=== PATIENT | female | born 1935 | race Caucasian/White ===

== ENCOUNTER 2018-07-20 14:40 | Observation (INO) ==
[2018-07-20] MEDS ORDERED: TUSSIONEX PENNKINETIC SUSP PO PRN (15:25)
[2018-07-20] MEDS ORDERED: SALINE 3% 15 ML NEB TX NEB ONE (16:00)
[2018-07-20] MEDS ORDERED: ZOFRAN INJ 4 MG VIAL IVP PRN (16:02)
[2018-07-20] MEDS ORDERED: NS 1/2 1000 ML IV 1,000 ML IV ONE (16:04)
[2018-07-20] MEDS ORDERED: ZOFRAN INJ 4 MG VIAL ONE (16:05)
[2018-07-20] MEDS: NS 1/2 1000 ML IV 1,000 ML IV SCH (16:21)
[2018-07-20 16:28] LABS: BASOPHILS # (AUTO) 0.1 X10^3/uL (0.0-0.1); BASOPHILS % (AUTO) 0.8 % (0.2-1.0); EOSINOPHILS # (AUTO) 0.3 x10^3/uL (0.0-0.2); EOSINOPHILS % (AUTO) 3.8 % (0.9-2.9); HEMATOCRIT 38.6 % (36.0-47.0); HEMOGLOBIN 12.5 g/dL (12.0-16.0); LYMPHOCYTES # (AUTO) 2.2 X10^3/uL (1.3-2.9); MEAN CORPUSCULAR HEMOGLOBIN 28.2 pg (27.0-34.0); MEAN CORPUSCULAR HGB CONC 32.5 g/dL (33.0-35.0); MEAN CORPUSCULAR VOLUME 86.8 fL (80.0-100.0); MEAN PLATELET VOLUME 7.8 fL (7.4-11.0); MONOCYTES # (AUTO) 0.5 x10^3/uL (0.3-0.8); MONOCYTES % (AUTO) 7.5 % (0.0-13.0); NEUTROPHILS # (AUTO) 3.6 x10^3/uL (2.2-4.8); NEUTROPHILS % (AUTO) 54.9 % (42.0-75.0); PLATELET COUNT 282 X10^3/uL (150.0-450.0); RED BLOOD COUNT 4.45 X10^6/uL (3.5-5.4); RED CELL DISTRIBUTION WIDTH 14.7 % (11.6-16.5); WHITE BLOOD COUNT 6.6 X10^3/uL (3.6-10.0)
[2018-07-20 16:39] LABS: ALANINE AMINOTRANSFERASE 27 Units/L (12-78); ALKALINE PHOSPHATASE 77 Units/L (46-116); ASPARTATE AMINO TRANSFERASE 29 Units/L (15-37); BLOOD UREA NITROGEN 29 mg/dL (7-18); CALCIUM 9.7 mg/dL (8.5-10.1); CHLORIDE 99 mmol/L (98-107); COR NA(FOR HYPERGLY) 139 mmol/L (136-145); CREATININE 1.15 mg/dL (0.55-1.02); SODIUM 137 mmol/L (136-145); TOTAL PROTEIN 7.6 g/dL (6.4-8.2); eGFR NON BLACK RACES 48 (>60)
[2018-07-20 16:52] LABS: B-TYPE NATRIURETIC PEPTIDE 101 pg/mL (0-79)
[2018-07-20 17:08] VITALS: BMI 23.6
[2018-07-20] MEDS: ROBITUSSIN DM PO SCH ×2 (17:18→21:54)
--- NOTE | 2018-07-20 17:38 | RAD ---
Chest PA and lateral Indication: Pneumonia Comparison: 01/22/2016 Findings: There is no pneumothorax or effusion. There is no consolidation. Heart size is enlarged with sternotomy change. Chronic COPD change with peribronchial thickening noted Impression: Cardiomegaly and COPD. Mild bronchitis possible. Reported By:
[2018-07-20] MEDS: XOPENEX 1.25 MG/3 ML NEBULE NEB SCH (18:20)
[2018-07-20] MEDS ORDERED: XANAX ONE (19:18)
[2018-07-20] MEDS: XANAX PO PRN (19:30)
[2018-07-20] MEDS: MYSOLINE PO SCH (20:18)
[2018-07-20] MEDS: SNACK - Diabetic Appropriate PO SCH (21:00)
[2018-07-20] MEDS: NORCO 10/325 TAB PO PRN (21:30)
[2018-07-20] MEDS: RESTORIL CAP 15 MG PO PRN (21:30)
[2018-07-20 22:23] LABS: BILIRUBIN,URINE NEGATIVE (NEGATIVE); BLOOD/HEMOGLOBIN,URINE NEGATIVE (NEGATIVE); GLUCOSE, URINE NEGATIVE (NEGATIVE); KETONES,URINE NEGATIVE (NEGATIVE); LEUKOCYTE ESTERASE ,URINE NEGATIVE (NEGATIVE); NITRITES,URINE NEGATIVE (NEGATIVE); PROTEIN,URINE NEGATIVE (NEGATIVE); UROBILINOGEN,URINE NORMAL (NORMAL)
[2018-07-20 22:25] LABS: APPEARANCE,URINE CLEAR (CLEAR); COLOR,URINE PALE YELLOW (YELLOW)
[2018-07-21] MEDS: XOPENEX 1.25 MG/3 ML NEBULE NEB SCH ×4 (00:19→17:00)
[2018-07-21] MEDS ORDERED: NS 1/2 1000 ML IV 1,000 ML IV ONE (03:05)
[2018-07-21] MEDS: VISTARIL PO PRN (03:07)
[2018-07-21 05:28] LABS: BASOPHILS % (AUTO) 0.7 % (0.2-1.0); EOSINOPHILS # (AUTO) 0.2 x10^3/uL (0.0-0.2); EOSINOPHILS % (AUTO) 3.6 % (0.9-2.9); HEMATOCRIT 34.3 % (36.0-47.0); HEMOGLOBIN 11.1 g/dL (12.0-16.0); LYMPHOCYTES # (AUTO) 2.7 X10^3/uL (1.3-2.9); LYMPHOCYTES % (AUTO) 47.1 % (21.0-51.0); MEAN CORPUSCULAR HEMOGLOBIN 28.2 pg (27.0-34.0); MEAN CORPUSCULAR HGB CONC 32.5 g/dL (33.0-35.0); MEAN CORPUSCULAR VOLUME 86.6 fL (80.0-100.0); MEAN PLATELET VOLUME 7.9 fL (7.4-11.0); MONOCYTES # (AUTO) 0.5 x10^3/uL (0.3-0.8); MONOCYTES % (AUTO) 8.1 % (0.0-13.0); NEUTROPHILS # (AUTO) 2.3 x10^3/uL (2.2-4.8); NEUTROPHILS % (AUTO) 40.5 % (42.0-75.0); PLATELET COUNT 240 X10^3/uL (150.0-450.0); RED BLOOD COUNT 3.96 X10^6/uL (3.5-5.4); RED CELL DISTRIBUTION WIDTH 14.6 % (11.6-16.5); WHITE BLOOD COUNT 5.8 X10^3/uL (3.6-10.0)
[2018-07-21] MEDS: NS 1/2 1000 ML IV 1,000 ML IV SCH (05:41)
[2018-07-21 05:42] LABS: ALANINE AMINOTRANSFERASE 30 Units/L (12-78); ALBUMIN 3.5 g/dL (3.4-5.0); ALKALINE PHOSPHATASE 63 Units/L (46-116); ASPARTATE AMINO TRANSFERASE 37 Units/L (15-37); BLOOD UREA NITROGEN 24 mg/dL (7-18); CALCIUM 9.1 mg/dL (8.5-10.1); CARBON DIOXIDE 26.8 mmol/L (21-32); CHLORIDE 99 mmol/L (98-107); COR NA(FOR HYPERGLY) 139 mmol/L (136-145); CREATININE 1.03 mg/dL (0.55-1.02); SODIUM 137 mmol/L (136-145); TOTAL PROTEIN 6.7 g/dL (6.4-8.2); eGFR NON BLACK RACES 54 (>60)
[2018-07-21] MEDS ORDERED: MICRO K EXTEN CAP 10 MEQ PO PRN (05:44)
[2018-07-21] MEDS ORDERED: KLOR-CON PO PRN (05:44)
[2018-07-21] MEDS ORDERED: POTASSIUM CHL 60 MEQ/NS 0.45% 500 ML IV PRN (05:44)
[2018-07-21] MEDS ORDERED: K-RIDER 10 MEQ/NS 100 ML 10 MEQ/100 ML BAG IV PRN (05:44)
[2018-07-21] MEDS ORDERED: POTASSIUM CHL 40 MEQ/NS 0.45% 500 ML IV PRN (05:44)
[2018-07-21] MEDS ORDERED: K-DUR TAB 20 MEQ PO PRN (05:44)
[2018-07-21] MEDS ORDERED: POTASSIUM CHLORIDE LIQ 20 MEQ UDC PO PRN (05:44)
--- NOTE | 2018-07-21 05:46 | RAD ---
Chest, one view Indication: Pneumonia Comparison: 07/20/2018 Findings: There is stable enlargement of the cardiac silhouette without congestive failure. Prior CABG changes noted. The lungs are hyperinflated with flattening of the hemidiaphragms and coarsened interstitial markings, compatible with COPD. No focal infiltrate or significant effusion is identified. No pneumothorax. Impression: Stable cardiomegaly without CHF. COPD. Reported By:
[2018-07-21] MEDS: MAGNESIUM SULFATE 1 GRAM/100 mL PREMIX 1 GM/100 ML BAG IV PRN ×3 (06:42→12:25)
[2018-07-21] MEDS: XANAX PO PRN (09:02)
[2018-07-21] MEDS: LEVAQUIN PREMIX IV 500 MG 500 MG/100 ML BAG IV SCH (09:06)
[2018-07-21] MEDS: ROBITUSSIN DM PO SCH ×4 (11:44→21:09)
[2018-07-21] MEDS: HumuLIN R SUBCUT PRN ×3 (12:22→21:15)
[2018-07-21] MEDS: XANAX PO SCH ×2 (14:04→21:08)
[2018-07-21] MEDS: NORCO 10/325 TAB PO PRN (17:00)
[2018-07-21] MEDS ORDERED: MYSOLINE PO SCH (18:00)
[2018-07-21] MEDS: LOVENOX INJ 40 MG SYR SC SCH (18:17)
[2018-07-21] MEDS: RESTORIL CAP 15 MG PO PRN (21:08)
[2018-07-21] MEDS: SNACK - Diabetic Appropriate PO SCH (21:09)
[2018-07-21] MEDS: MYSOLINE PO SCH (21:09)
[2018-07-22] MEDS: XOPENEX 1.25 MG/3 ML NEBULE NEB SCH ×3 (00:19→11:24)
[2018-07-22] MEDS: VISTARIL PO PRN ×2 (01:09→08:31)
[2018-07-22] MEDS: NORCO 10/325 TAB PO PRN ×2 (01:13→10:18)
[2018-07-22] MEDS ORDERED: NS 1/2 1000 ML IV 1,000 ML IV ONE (01:59)
[2018-07-22] MEDS: NS 1/2 1000 ML IV 1,000 ML IV SCH ×2 (02:00→10:19)
[2018-07-22] MEDS ORDERED: MAGNESIUM SULFATE 1 GRAM/100 mL PREMIX 1 GM/100 ML BAG IV PRN (05:00)
[2018-07-22 05:33] LABS: BASOPHILS % (AUTO) 0.8 % (0.2-1.0); EOSINOPHILS # (AUTO) 0.2 x10^3/uL (0.0-0.2); EOSINOPHILS % (AUTO) 3.5 % (0.9-2.9); HEMOGLOBIN 11.4 g/dL (12.0-16.0); LYMPHOCYTES # (AUTO) 2.4 X10^3/uL (1.3-2.9); LYMPHOCYTES % (AUTO) 44.3 % (21.0-51.0); MEAN CORPUSCULAR HEMOGLOBIN 29.4 pg (27.0-34.0); MEAN CORPUSCULAR HGB CONC 33.6 g/dL (33.0-35.0); MEAN CORPUSCULAR VOLUME 87.6 fL (80.0-100.0); MONOCYTES # (AUTO) 0.5 x10^3/uL (0.3-0.8); MONOCYTES % (AUTO) 8.7 % (0.0-13.0); NEUTROPHILS # (AUTO) 2.3 x10^3/uL (2.2-4.8); NEUTROPHILS % (AUTO) 42.7 % (42.0-75.0); PLATELET COUNT 242 X10^3/uL (150.0-450.0); RED BLOOD COUNT 3.89 X10^6/uL (3.5-5.4); WHITE BLOOD COUNT 5.5 X10^3/uL (3.6-10.0)
[2018-07-22 05:50] LABS: ALBUMIN 3.3 g/dL (3.4-5.0); ALKALINE PHOSPHATASE 69 Units/L (46-116); BLOOD UREA NITROGEN 19 mg/dL (7-18); CALCIUM 8.6 mg/dL (8.5-10.1); CARBON DIOXIDE 25.1 mmol/L (21-32); CHLORIDE 101 mmol/L (98-107); COR CA(FOR HYPOALB) 9.2 mg/dL (8.5-10.1); COR NA(FOR HYPERGLY) 140 mmol/L (136-145); CREATININE 0.94 mg/dL (0.55-1.02); SODIUM 136 mmol/L (136-145); TOTAL PROTEIN 6.6 g/dL (6.4-8.2); eGFR NON BLACK RACES > 60 (>60)
[2018-07-22] MEDS: XANAX PO SCH ×2 (06:12→13:30)
[2018-07-22 06:37] LABS: ALANINE AMINOTRANSFERASE 29 Units/L (12-78); ASPARTATE AMINO TRANSFERASE 35 Units/L (15-37)
--- NOTE | 2018-07-22 07:17 | RAD ---
HISTORY: 82-year-old female with pneumonia and history of COPD. Study: Frontal view of the chest. Comparison: Chest radiograph 07/21/2018 Findings: Surgical devices post CABG are unchanged. The trachea is midline. The cardiac silhouette is stably enlarged. Improved bibasilar aeration likely secondary to improved inspiratory effort. No other interval change. IMPRESSION: 1. Improved bibasilar aeration. No other interval change. Reported By:
[2018-07-22] MEDS: ROBITUSSIN DM PO SCH (08:17)
[2018-07-22] MEDS: LEVAQUIN PREMIX IV 500 MG 500 MG/100 ML BAG IV SCH (08:17)
[2018-07-22] MEDS: LOVENOX INJ 40 MG SYR SC SCH (08:17)
[2018-07-22] MEDS ORDERED: MYSOLINE PO SCH (09:00)
[2018-07-22 12:07] VITALS: BP 122/56
--- NOTE | 2018-07-29 21:22 | DR.UPDATE ---
H&P Update History and Physical Update: WAS SEEN IN THE OFFICE TODAY FOR COMPLAINTS OF SOB, COUGH, NAUSEA, DIARRHEA AND HYPERTENSION. SHE WAS ADMITTED TO THE HOSPITAL FOR FURTHER EVALUATION AND TREATMENT OF BRONCHOPNEUMONIA AND GASTROENTERITIS. SHE WAS STARTED ON IV FLUIDS, IV ANTIBIOTICS, SUPPLEMENTAL OXYGEN, RESPIRATORY TREATMENTS, AND NAUSEA MEDICATIONS. A H&P WAS COMPLETED PRIOR TO ADMISSION. PATIENT HAS BEEN SEEN AND EXAMINED WITH NO CHANGES NOTED TO H&P. Changes noted: NO Yes with the following:
== END 2018-07-22 14:05 | disposition home health service (06) ==
LOC: MED/SURG
PROVIDERS: ADMIT Internal Medicine; ATTEND Internal Medicine
DX: M06.80 Other specified rheumatoid arthritis, unspecified site; J44.9 Chronic obstructive pulmonary disease, unspecified; D64.89 Other specified anemias; R11.0 Nausea; J18.0 Bronchopneumonia, unspecified organism; K52.89 Other specified noninfective gastroenteritis and colitis; Z79.899 Other long term (current) drug therapy; R53.83 Other fatigue; E11.65 Type 2 diabetes mellitus with hyperglycemia; R26.89 Other abnormalities of gait and mobility; R25.1 Tremor, unspecified; I11.9 Hypertensive heart disease without heart failure; R94.31 Abnormal electrocardiogram [ECG] [EKG]; R06.02 Shortness of breath; R19.7 Diarrhea, unspecified
CPT/HCPCS: 36415; 71010; 71020; 71045; 71046; 80053; 81003; 83735; 83880; 84132; 85025; 87040; 93005; 94640; 94760; 96367; 96372; 96374; 97162; 97166; 97530; 97535; A4222; Q0177; G0378; J1650; J1815; J1956; J2405; J3475

== ENCOUNTER 2018-11-18 12:20 | Inpatient (IN) ==
[2018-11-18] MEDS ORDERED: NS 1000 ML 1,000 ML ONE (13:40)
[2018-11-18 13:42] VITALS: BMI 21.2
[2018-11-18] MEDS: NS 1000 ML 1,000 ML IV SCH (13:53)
[2018-11-18] MEDS ORDERED: ZOFRAN INJ 4 MG VIAL ONE (14:02)
[2018-11-18] MEDS: ZOFRAN INJ 4 MG VIAL IVP PRN (14:06)
[2018-11-18 14:20] LABS: BASOPHILS # (AUTO) 0.2 X10^3/uL (0.0-0.1); BASOPHILS % (AUTO) 2.8 % (0.2-1.0); EOSINOPHILS # (AUTO) 0.1 x10^3/uL (0.0-0.2); EOSINOPHILS % (AUTO) 1.7 % (0.9-2.9); HEMATOCRIT 41.9 % (36.0-47.0); HEMOGLOBIN 14.2 g/dL (12.0-16.0); LYMPHOCYTES # (AUTO) 2.7 X10^3/uL (1.3-2.9); LYMPHOCYTES % (AUTO) 38.2 % (21.0-51.0); MEAN CORPUSCULAR HEMOGLOBIN 29.4 pg (27.0-34.0); MEAN CORPUSCULAR HGB CONC 33.9 g/dL (33.0-35.0); MEAN CORPUSCULAR VOLUME 86.9 fL (80.0-100.0); MONOCYTES # (AUTO) 0.4 x10^3/uL (0.3-0.8); MONOCYTES % (AUTO) 5.3 % (0.0-13.0); NEUTROPHILS # (AUTO) 3.6 x10^3/uL (2.2-4.8); PLATELET COUNT 261 X10^3/uL (150.0-450.0); RED BLOOD COUNT 4.82 X10^6/uL (3.5-5.4); RED CELL DISTRIBUTION WIDTH 14.9 % (11.6-16.5)
[2018-11-18 14:22] LABS: HEMOGLOBIN A1C 12.9 %
[2018-11-18 14:28] LABS: BLOOD UREA NITROGEN 43 mg/dL (7-18); CALCIUM 9.7 mg/dL (8.5-10.1); CARBON DIOXIDE 23.4 mmol/L (21-32); CHLORIDE 86 mmol/L (98-107); CREATININE 1.41 mg/dL (0.55-1.02); eGFR NON BLACK RACES 38 (>60)
[2018-11-18 14:29] LABS: ALBUMIN 3.6 g/dL (3.4-5.0); ALKALINE PHOSPHATASE 132 Units/L (46-116)
[2018-11-18] MEDS: HumuLIN R SC PRN ×2 (14:57→21:24)
[2018-11-18 15:44] LABS: ASPARTATE AMINO TRANSFERASE 27 Units/L (15-37); COR NA(FOR HYPERGLY) 131 mmol/L (136-145)
[2018-11-18 15:45] LABS: ALANINE AMINOTRANSFERASE 16 Units/L (12-78)
[2018-11-18 15:46] LABS: SODIUM 120 mmol/L (136-145)
[2018-11-18] MEDS ORDERED: HumuLIN R SUBCUT ONE (16:54)
[2018-11-18] MEDS: SYNTHROID 50 mcg TAB PO SCH (17:13)
[2018-11-18] MEDS ORDERED: XANAX ONE (18:05)
[2018-11-18] MEDS: XANAX PO PRN (18:06)
[2018-11-18] MEDS: NORCO 10/325 TAB PO PRN (19:00)
[2018-11-18] MEDS: SNACK - Diabetic Appropriate PO SCH (21:13)
[2018-11-18] MEDS: BENICAR TAB 40 MG PO SCH (21:13)
[2018-11-18] MEDS: CRESTOR TAB 10 MG PO SCH (21:13)
[2018-11-18] MEDS ORDERED: ULTRAM ONE (23:50)
[2018-11-18] MEDS: ULTRAM PO PRN (23:53)
[2018-11-19] MEDS: NS 1000 ML 1,000 ML IV SCH ×4 (00:19→18:08)
[2018-11-19] MEDS: ZOFRAN INJ 4 MG VIAL IVP PRN ×3 (02:00→18:13)
[2018-11-19 05:51] LABS: BASOPHILS # (AUTO) 0.3 X10^3/uL (0.0-0.1); BASOPHILS % (AUTO) 4.4 % (0.2-1.0); EOSINOPHILS # (AUTO) 0.2 x10^3/uL (0.0-0.2); EOSINOPHILS % (AUTO) 2.9 % (0.9-2.9); HEMATOCRIT 37.2 % (36.0-47.0); HEMOGLOBIN 12.8 g/dL (12.0-16.0); LYMPHOCYTES % (AUTO) 31.2 % (21.0-51.0); MEAN CORPUSCULAR HEMOGLOBIN 28.7 pg (27.0-34.0); MEAN CORPUSCULAR HGB CONC 34.3 g/dL (33.0-35.0); MEAN CORPUSCULAR VOLUME 83.7 fL (80.0-100.0); MEAN PLATELET VOLUME 8.7 fL (7.4-11.0); MONOCYTES # (AUTO) 1.4 x10^3/uL (0.3-0.8); NEUTROPHILS # (AUTO) 2.5 x10^3/uL (2.2-4.8); NEUTROPHILS % (AUTO) 39.5 % (42.0-75.0); PLATELET COUNT 229 X10^3/uL (150.0-450.0); RED BLOOD COUNT 4.45 X10^6/uL (3.5-5.4); WHITE BLOOD COUNT 6.3 X10^3/uL (3.6-10.0)
[2018-11-19 05:55] LABS: ALANINE AMINOTRANSFERASE 19 Units/L (12-78); ALKALINE PHOSPHATASE 108 Units/L (46-116); BLOOD UREA NITROGEN 36 mg/dL (7-18); CARBON DIOXIDE 21.9 mmol/L (21-32); CHLORIDE 97 mmol/L (98-107); COR CA(FOR HYPOALB) 9.8 mg/dL (8.5-10.1); COR NA(FOR HYPERGLY) 134 mmol/L (136-145); CREATININE 1.01 mg/dL (0.55-1.02); SODIUM 129 mmol/L (136-145); TOTAL PROTEIN 6.8 g/dL (6.4-8.2); eGFR NON BLACK RACES 56 (>60)
[2018-11-19] MEDS: HumuLIN R SC PRN ×4 (06:12→21:56)
[2018-11-19 06:44] LABS: PLATELET MORPHOLOGY COMMENT NORMAL (NORMAL)
[2018-11-19 07:54] LABS: ASPARTATE AMINO TRANSFERASE 25.2 Units/L (15-37)
[2018-11-19] MEDS: BENICAR TAB 40 MG PO SCH ×2 (08:42→21:20)
[2018-11-19] MEDS: HEMOCYTE-PLUS PO SCH (08:43)
[2018-11-19] MEDS: TRICOR TAB 145 MG PO SCH (08:43)
[2018-11-19] MEDS: CYMBALTA PO SCH (08:43)
[2018-11-19] MEDS ORDERED: PROTONIX TAB 40 MG PO SCH (09:00)
[2018-11-19] MEDS ORDERED: LANTUS SC SCH (09:00)
[2018-11-19] MEDS: NORCO 10/325 TAB PO PRN (09:16)
[2018-11-19] MEDS: VITAMIN D3 PO SCH (10:32)
[2018-11-19] MEDS: ASPIRIN 81 MG CHEWTAB PO SCH (10:33)
[2018-11-19] MEDS: PEPCID 20 MG IV PREMIX* 20 MG/50 ML BAG IV SCH ×2 (10:33→21:23)
[2018-11-19] MEDS: MYSOLINE PO SCH ×3 (10:33→22:10)
[2018-11-19] MEDS: TORADOL 15 MG VIAL IVP PRN ×2 (10:33→16:54)
[2018-11-19] MEDS ORDERED: PROTONIX INJ 40 MG VIAL IVP SCH (11:00)
[2018-11-19] MEDS ORDERED: CYMBALTA PO SCH (11:00)
[2018-11-19] MEDS: ULTRAM PO PRN (14:29)
[2018-11-19] MEDS: SYNTHROID 50 mcg TAB PO SCH (16:54)
[2018-11-19] MEDS ORDERED: TRICOR TAB 145 MG PO SCH (21:00)
[2018-11-19] MEDS: PROTONIX TAB 40 MG PO SCH (21:21)
[2018-11-19] MEDS: AMBIEN PO SCH (21:22)
[2018-11-19] MEDS: CRESTOR TAB 10 MG PO SCH (21:23)
[2018-11-20] MEDS: NORCO 10/325 TAB PO PRN ×2 (02:45→10:13)
[2018-11-20] MEDS: MYSOLINE PO SCH ×3 (05:38→21:07)
[2018-11-20] MEDS: HumuLIN R SC PRN ×3 (05:39→21:12)
[2018-11-20] MEDS: NS 1000 ML 1,000 ML IV SCH ×2 (05:41→08:09)
[2018-11-20 06:22] LABS: BASOPHILS # (AUTO) 0.1 X10^3/uL (0.0-0.1); BASOPHILS % (AUTO) 1.4 % (0.2-1.0); EOSINOPHILS # (AUTO) 0.2 x10^3/uL (0.0-0.2); EOSINOPHILS % (AUTO) 3.6 % (0.9-2.9); HEMATOCRIT 35.6 % (36.0-47.0); HEMOGLOBIN 11.8 g/dL (12.0-16.0); LYMPHOCYTES # (AUTO) 2.4 X10^3/uL (1.3-2.9); MEAN CORPUSCULAR HEMOGLOBIN 28.2 pg (27.0-34.0); MEAN CORPUSCULAR VOLUME 85.4 fL (80.0-100.0); MEAN PLATELET VOLUME 8.8 fL (7.4-11.0); MONOCYTES # (AUTO) 0.4 x10^3/uL (0.3-0.8); MONOCYTES % (AUTO) 6.6 % (0.0-13.0); NEUTROPHILS # (AUTO) 2.4 x10^3/uL (2.2-4.8); NEUTROPHILS % (AUTO) 44.4 % (42.0-75.0); PLATELET COUNT 194 X10^3/uL (150.0-450.0); RED BLOOD COUNT 4.17 X10^6/uL (3.5-5.4); WHITE BLOOD COUNT 5.4 X10^3/uL (3.6-10.0)
[2018-11-20 06:45] LABS: ALANINE AMINOTRANSFERASE 21 Units/L (12-78); ALBUMIN 2.8 g/dL (3.4-5.0); ALKALINE PHOSPHATASE 93 Units/L (46-116); ASPARTATE AMINO TRANSFERASE 21 Units/L (15-37); BLOOD UREA NITROGEN 19 mg/dL (7-18); CALCIUM 8.8 mg/dL (8.5-10.1); CARBON DIOXIDE 21.5 mmol/L (21-32); CHLORIDE 101 mmol/L (98-107); COR CA(FOR HYPOALB) 9.8 mg/dL (8.5-10.1); COR NA(FOR HYPERGLY) 139 mmol/L (136-145); CREATININE 0.83 mg/dL (0.55-1.02); SODIUM 134 mmol/L (136-145); TOTAL PROTEIN 6.1 g/dL (6.4-8.2); eGFR NON BLACK RACES > 60 (>60)
[2018-11-20] MEDS: TORADOL 15 MG VIAL IVP PRN ×2 (07:18→13:43)
[2018-11-20] MEDS: ZOFRAN INJ 4 MG VIAL IVP PRN ×2 (07:19→13:43)
[2018-11-20] MEDS: BENICAR TAB 40 MG PO SCH ×2 (09:06→21:02)
[2018-11-20] MEDS: VITAMIN D3 PO SCH (09:06)
[2018-11-20] MEDS: ASPIRIN 81 MG CHEWTAB PO SCH (09:06)
[2018-11-20] MEDS: PEPCID 20 MG IV PREMIX* 20 MG/50 ML BAG IV SCH ×2 (09:07→21:05)
[2018-11-20] MEDS: TRICOR TAB 145 MG PO SCH (09:07)
[2018-11-20] MEDS: CYMBALTA PO SCH (09:07)
[2018-11-20] MEDS: PROTONIX TAB 40 MG PO SCH ×2 (09:07→21:05)
[2018-11-20] MEDS: HEMOCYTE-PLUS PO SCH (09:07)
[2018-11-20] MEDS: LANTUS SC SCH (10:07)
[2018-11-20] MEDS ORDERED: PHARMACY CONSULT - DOSE _____ XX SCH (14:00)
[2018-11-20] MEDS: SYNTHROID 50 mcg TAB PO SCH (17:55)
[2018-11-20] MEDS: SNACK - Diabetic Appropriate PO SCH (20:30)
[2018-11-20] MEDS: AMBIEN PO SCH (21:02)
[2018-11-20] MEDS: LOVENOX INJ 30 MG SYR SC SCH (21:03)
[2018-11-20] MEDS: CRESTOR TAB 10 MG PO SCH (21:03)
[2018-11-20] MEDS: XANAX PO PRN (21:12)
[2018-11-21] MEDS: NS 1000 ML 1,000 ML IV SCH ×4 (02:33→17:43)
[2018-11-21] MEDS: NORCO 10/325 TAB PO PRN (03:49)
[2018-11-21 05:19] LABS: BASOPHILS % (AUTO) 0.6 % (0.2-1.0); EOSINOPHILS # (AUTO) 0.2 x10^3/uL (0.0-0.2); EOSINOPHILS % (AUTO) 3.7 % (0.9-2.9); HEMATOCRIT 35.1 % (36.0-47.0); HEMOGLOBIN 11.9 g/dL (12.0-16.0); LYMPHOCYTES # (AUTO) 2.3 X10^3/uL (1.3-2.9); LYMPHOCYTES % (AUTO) 46.4 % (21.0-51.0); MEAN CORPUSCULAR HEMOGLOBIN 28.3 pg (27.0-34.0); MEAN CORPUSCULAR HGB CONC 33.9 g/dL (33.0-35.0); MEAN CORPUSCULAR VOLUME 83.4 fL (80.0-100.0); MEAN PLATELET VOLUME 7.9 fL (7.4-11.0); MONOCYTES # (AUTO) 0.3 x10^3/uL (0.3-0.8); MONOCYTES % (AUTO) 6.8 % (0.0-13.0); NEUTROPHILS # (AUTO) 2.1 x10^3/uL (2.2-4.8); NEUTROPHILS % (AUTO) 42.5 % (42.0-75.0); PLATELET COUNT 199 X10^3/uL (150.0-450.0); RED BLOOD COUNT 4.21 X10^6/uL (3.5-5.4); RED CELL DISTRIBUTION WIDTH 15.2 % (11.6-16.5); WHITE BLOOD COUNT 4.9 X10^3/uL (3.6-10.0)
[2018-11-21] MEDS: HumuLIN R SC PRN ×4 (05:36→22:08)
[2018-11-21 05:37] LABS: ALANINE AMINOTRANSFERASE 23 Units/L (12-78); ALBUMIN 2.9 g/dL (3.4-5.0); ALKALINE PHOSPHATASE 91 Units/L (46-116); ASPARTATE AMINO TRANSFERASE 25 Units/L (15-37); BLOOD UREA NITROGEN 10 mg/dL (7-18); CALCIUM 9.1 mg/dL (8.5-10.1); CARBON DIOXIDE 25.9 mmol/L (21-32); CHLORIDE 102 mmol/L (98-107); COR NA(FOR HYPERGLY) 138 mmol/L (136-145); CREATININE 0.75 mg/dL (0.55-1.02); SODIUM 136 mmol/L (136-145); TOTAL PROTEIN 6.4 g/dL (6.4-8.2); eGFR NON BLACK RACES > 60 (>60)
[2018-11-21] MEDS: MYSOLINE PO SCH ×3 (05:40→21:30)
[2018-11-21] MEDS ORDERED: POTASSIUM CHLORIDE LIQ 20 MEQ UDC PO PRN (06:12)
[2018-11-21] MEDS ORDERED: POTASSIUM CHL 40 MEQ/NS 0.45% 500 ML IV PRN (06:12)
[2018-11-21] MEDS ORDERED: MICRO K EXTEN CAP 10 MEQ PO PRN (06:12)
[2018-11-21] MEDS ORDERED: K-RIDER 10 MEQ/NS 100 ML 10 MEQ/100 ML BAG IV PRN (06:12)
[2018-11-21] MEDS ORDERED: POTASSIUM CHL 60 MEQ/NS 0.45% 500 ML IV PRN (06:12)
[2018-11-21] MEDS ORDERED: KLOR-CON PO PRN (06:12)
[2018-11-21] MEDS: TORADOL 15 MG VIAL IVP PRN ×2 (06:23→14:10)
[2018-11-21] MEDS: VITAMIN D3 PO SCH (08:17)
[2018-11-21] MEDS: TRICOR TAB 145 MG PO SCH (08:17)
[2018-11-21] MEDS: BENICAR TAB 40 MG PO SCH ×2 (08:17→20:31)
[2018-11-21] MEDS: PROTONIX TAB 40 MG PO SCH ×2 (08:17→20:33)
[2018-11-21] MEDS: LOVENOX INJ 30 MG SYR SC SCH ×2 (08:18→20:33)
[2018-11-21] MEDS: PEPCID 20 MG IV PREMIX* 20 MG/50 ML BAG IV SCH ×2 (08:18→20:33)
[2018-11-21] MEDS: ASPIRIN 81 MG CHEWTAB PO SCH (08:18)
[2018-11-21] MEDS: HEMOCYTE-PLUS PO SCH (08:18)
[2018-11-21] MEDS: K-DUR TAB 20 MEQ PO PRN (08:18)
[2018-11-21] MEDS: LANTUS SC SCH (08:19)
[2018-11-21] MEDS: MAGNESIUM SULFATE 1 GRAM/100 mL PREMIX 4 G/400 ML BAG IV SCH ×3 (08:24→10:06)
[2018-11-21] MEDS: CYMBALTA PO SCH (08:42)
[2018-11-21] MEDS: SYNTHROID 50 mcg TAB PO SCH (17:17)
[2018-11-21] MEDS: CRESTOR TAB 10 MG PO SCH (20:31)
[2018-11-21] MEDS: XANAX PO PRN (20:32)
[2018-11-21] MEDS: AMBIEN PO SCH (20:33)
[2018-11-21] MEDS: SNACK - Diabetic Appropriate PO SCH (20:42)
--- NOTE | 2018-11-21 20:45 | PCM.PROG ---
Progress Note - Progress Note for Day of Date of Exam: 11/19/18 - Subjective Subjective: WAS ADMITTED FOR HYPERGLYCEMIA AND RENAL FAILURE. TODAY, SHE IS ALERT AND ORIENTED, LYING IN BED ON MORNING ROUNDS. SHE REPORTS GENERALIZED WEAKNESS AND PAIN TODAY. STAFF REPORTS THAT SHE IS UNSTEADY ON AMBULATION. ON EXAMINATION, HEART IS REGULAR IN RATE AND RHYTHM. BILATERAL LUNGS ARE NOTED WITH DIMINISHED LUNG SOUNDS THROUGHOUT. ABDOMEN IS ROUND, SOFT, AND NON-TENDER WITH NORMAL BOWEL SOUNDS NOTED IN ALL QUADRANTS. HER VITALS THIS MORNING ARE 97.8-78-15-95%-149/68. LABS WERE OBTAINED. ABNORMAL LAB VALUES INCLUDE THE FOLLOWING: SODIUM 129, CHLORIDE 97,BUN 36, GLUCOSE 298, ALBUMIN 3.0. BLOOD GLUCOSE LEVELS HAVE REMAINED ELEVATED THROUGHOUT THE NIGHT. SHE HAS BEEN RECEIVING SLIDING SCALE INSULIN. TODAY, WE WILL START LANTUS 10 UNITS SC AM. OTHERWISE, WE WILL CONTINUE WITH CURRENT PLAN OF CARE. WE WILL HAVE PHYSICAL THERAPY EVALUATE AND WORK WITH PATIENT TODAY. OTHERWISE, WE PLAN TO FOLLOW UP WITH AM LABS AND CONTINUE TO MONITOR. - Past Medical Family Social History Past Med/Fam/Surg Hx: No changes since H&P Allergies: Allergies Penicillins Allergy (Verified 07/20/18 20:37) - Review of Systems ROS: No change since H&P - Vital Signs and I&O's Vital Signs: Temperature 98.2 F Pulse Rate [Apical] 71 Pulse Rate 76 Respiratory Rate 20 Blood Pressure [Right Arm] 138/72 Blood Pressure [Left Arm] 141/67 Blood Pressure 148/64 O2 Sat by Pulse Oximetry 95 Intake and Output: Intake & Output 11/19/18 11/20/18 11/21/18 11/22/18 11:59 11:59 11:59 11:59 Intake Total 2346 / 2346 2059 1540 / 1540 1380 / 1380 Balance 2346 / 2346 2059 1540 / 1540 1380 / 1380 - Physical Exam Oriented: Normal Eyes: Normal Ear: Normal Throat: Normal Respiratory: Generalized, Diminished Cardiovascular: Normal : Normal Auscultation: Bowel Sounds: Normal Palpation: Normal Tenderness: Normal Skin: Normal Musculoskeletal: Normal Psychiatric: Depression Mood Description: Calm Affect: Normal Speech Pattern: Clear, Appropriate - Laboratory and Diagnostics Result Diagrams: 11/21/18 04:50 11/21/18 04:50 Labs: Laboratory WBC 4.9 X10^3/uL (3.6-10.0) 11/21/18 04:50 RBC 4.21 X10^6/uL (3.5-5.4) 11/21/18 04:50 Hgb 11.9 g/dL (12.0-16.0) L 11/21/18 04:50 Hct 35.1 % (36.0-47.0) L 11/21/18 04:50 MCV 83.4 fL (80.0-100.0) 11/21/18 04:50 MCH 28.3 pg (27.0-34.0) 11/21/18 04:50 MCHC 33.9 g/dL (33.0-35.0) 11/21/18 04:50 RDW 15.2 % (11.6-16.5) 11/21/18 04:50 Plt Count 199 X10^3/uL (150.0-450.0) 11/21/18 04:50 Plt Count Comment Adequate (ADEQUATE) 11/19/18 04:45 MPV 7.9 fL (7.4-11.0) 11/21/18 04:50 Neut % (Auto) 42.5 % (42.0-75.0) 11/21/18 04:50 Lymph % (Auto) 46.4 % (21.0-51.0) 11/21/18 04:50 [place] % (Auto) 6.8 % (0.0-13.0) 11/21/18 04:50 Eos % (Auto) 3.7 % (0.9-2.9) H 11/21/18 04:50 Baso % (Auto) 0.6 % (0.2-1.0) 11/21/18 04:50 Neut # (Auto) 2.1 x10^3/uL (2.2-4.8) L 11/21/18 04:50 Lymph # (Auto) 2.3 X10^3/uL (1.3-2.9) 11/21/18 04:50 [place] # (Auto) 0.3 x10^3/uL (0.3-0.8) 11/21/18 04:50 Eos # (Auto) 0.2 x10^3/uL (0.0-0.2) 11/21/18 04:50 Baso # (Auto) 0.0 X10^3/uL (0.0-0.1) 11/21/18 04:50 Absolute Nucleated RBC 0.0 /100WBC 11/21/18 04:50 Total Counted 100 11/19/18 04:45 Neutrophils % (Manual) 46 % (39-76) 11/19/18 04:45 Lymphocytes % (Manual) 45 % (13-43) H 11/19/18 04:45 Monocytes % (Manual) 5 % (4-9) 11/19/18 04:45 Eosinophils % (Manual) 4 % (0-6) 11/19/18 04:45 Plt Morphology Comment Normal (NORMAL) 11/19/18 04:45 RBC Morphology Normal (NORMAL) 11/19/18 04:45 Sodium 136 mmol/L (136-145) 11/21/18 04:50 Corrected Sodium 138 mmol/L (136-145) 11/21/18 04:50 Potassium 3.7 mmol/L (3.5-5.1) 11/21/18 04:50 Chloride 102 mmol/L (98-107) 11/21/18 04:50 Carbon Dioxide 25.9 mmol/L (21-32) 11/21/18 04:50 BUN 10 mg/dL (7-18) 11/21/18 04:50 Creatinine 0.75 mg/dL (0.55-1.02) 11/21/18 04:50 Est GFR (MDRD) Af Amer > 60 (>60) 11/21/18 04:50 Est GFR (MDRD) Non-Af > 60 (>60) 11/21/18 04:50 Glucose 163 mg/dL (65-99) H 11/21/18 04:50 POC Glucose (mg/dL) 299 mg/dL (65-99) H 11/19/18 11:15 Hemoglobin A1c 12.9 % 11/18/18 14:00 Calcium 9.1 mg/dL (8.5-10.1) 11/21/18 04:50 Corrected Calcium 10.0 mg/dL (8.5-10.1) 11/21/18 04:50 Magnesium 1.6 mg/dL (1.7-2.9) L 11/21/18 04:50 Total Bilirubin 0.20 mg/dL (0.2-1.0) 11/21/18 04:50 AST 25 Units/L (15-37) 11/21/18 04:50 ALT 23 Units/L (12-78) 11/21/18 04:50 Alkaline Phosphatase 91 Units/L (46-116) 11/21/18 04:50 Total Protein 6.4 g/dL (6.4-8.2) 11/21/18 04:50 Albumin 2.9 g/dL (3.4-5.0) L 11/21/18 04:50 Globulin 3.5 g/dL (2.5-4.5) 11/21/18 04:50 Albumin/Globulin Ratio 0.8 Ratio (1.1-2.1) L 11/21/18 04:50 - Plan (1) Hyperglycemia Status: Acute Plan: LANTUS 10UNITS SC DAILY, HUMULIN R SLIDING SCALE, OTBS, CONTINUE TO MONITOR (2) Weakness Status: Acute Plan: PHYSICAL THERAPY, CONTINUE TO MONITOR (3) Hypertension Status: Chronic Qualifiers: Hypertension type: essential hypertension Qualified Code(s): I10 - Essential (primary) hypertension
--- NOTE | 2018-11-21 20:48 | DR.UPDATE ---
H&P Update History and Physical Update: History and Physical reviewed and patient examined. Changes noted: Yes with the following: PRESENTED TO THE OFFICE TODAY WITH COMPLAINTS OF FATIGUE, MALAISE, HYPERTENSION, POOR APPETITE, AMS, AND HYPERGLYCEMIA. SHE WAS ADMITTED TO THE HOSPITAL FOR FURTHER EVALUATION AND TREATMENT. ON ADMISSION, WE PLANNED TO OBTAIN LABS. WE WILL START NORMAL SALINE AT 75ML/HR, OTBS, HUMULIN R SLIDING SCALE, AND WE WILL CONTINUE HOME MEDS. OTHERWISE, WE WILL FOLLOW UP WITH AM LABS AND CONTINUE TO MONITOR. NO CHANGES NOTED TO H&P.
--- NOTE | 2018-11-21 21:42 | PCM.PROG ---
Progress Note - Progress Note for Day of Date of Exam: 11/20/18 - Subjective Subjective: WAS ADMITTED FOR HYPERGLYCEMIA AND RENAL FAILURE. TODAY, SHE IS ALERT AND ORIENTED, LYING IN BED ON MORNING ROUNDS. SHE CONTINUES TO REPORT GENERALIZED WEAKNESS AND PAIN TODAY. STAFF REPORTS THAT SHE CONTINUES TO BE UNSTEADY ON AMBULATION. ON EXAMINATION, HEART IS REGULAR IN RATE AND RHYTHM. BILATERAL LUNGS ARE NOTED WITH DIMINISHED LUNG SOUNDS THROUGHOUT. ABDOMEN IS ROUND, SOFT, AND NON-TENDER WITH NORMAL BOWEL SOUNDS NOTED IN ALL QUADRANTS. HER VITALS THIS MORNING ARE 97.8-78-20-97%-156/76. LABS WERE OBTAINED. ABNORMAL LAB VALUES INCLUDE THE FOLLOWING: HGB 11.8, HCT 35.6, SODIUM 134, BUN 19, GLUCOSE 295, TOTAL PROTEIN 6.1, ALBUMIN 2.8. BLOOD GLUCOSE LEVELS HAVE REMAINED ELEVATED THROUGHOUT THE NIGHT. SHE HAS BEEN RECEIVING SLIDING SCALE INSULIN. TODAY, WE WILL INCREASE LANTUS TO 15 UNITS SC AM. OTHERWISE, WE WILL CONTINUE WITH CURRENT PLAN OF CARE. WE WILL HAVE PHYSICAL THERAPY CONTINUE TO WORK WITH PATIENT TODAY. OTHERWISE, WE PLAN TO FOLLOW UP WITH AM LABS AND CONTINUE TO MONITOR. - Past Medical Family Social History Past Med/Fam/Surg Hx: No changes since H&P Allergies: Allergies Penicillins Allergy (Verified 07/20/18 20:37) - Review of Systems ROS: No change since H&P - Vital Signs and I&O's Vital Signs: Temperature 98.2 F Pulse Rate [Apical] 71 Pulse Rate 76 Respiratory Rate 20 Blood Pressure [Right Arm] 138/72 Blood Pressure [Left Arm] 141/67 Blood Pressure 148/64 O2 Sat by Pulse Oximetry 95 Intake and Output: Intake & Output 11/19/18 11/20/18 11/21/18 11/22/18 11:59 11:59 11:59 11:59 Intake Total 2346 / 2346 2059 1540 / 1540 1380 / 1380 Balance 2346 / 2346 2059 1540 / 1540 1380 / 1380 - Physical Exam Oriented: Normal Eyes: Normal Ear: Normal Throat: Normal Respiratory: Generalized, Diminished Cardiovascular: Normal : Normal Auscultation: Bowel Sounds: Normal Palpation: Normal Tenderness: Normal Skin: Normal Musculoskeletal: Normal Psychiatric: Depression Mood Description: Calm Affect: Normal Speech Pattern: Clear, Appropriate - Laboratory and Diagnostics Result Diagrams: 11/21/18 04:50 11/21/18 04:50 Labs: Laboratory WBC 4.9 X10^3/uL (3.6-10.0) 11/21/18 04:50 RBC 4.21 X10^6/uL (3.5-5.4) 11/21/18 04:50 Hgb 11.9 g/dL (12.0-16.0) L 11/21/18 04:50 Hct 35.1 % (36.0-47.0) L 11/21/18 04:50 MCV 83.4 fL (80.0-100.0) 11/21/18 04:50 MCH 28.3 pg (27.0-34.0) 11/21/18 04:50 MCHC 33.9 g/dL (33.0-35.0) 11/21/18 04:50 RDW 15.2 % (11.6-16.5) 11/21/18 04:50 Plt Count 199 X10^3/uL (150.0-450.0) 11/21/18 04:50 Plt Count Comment Adequate (ADEQUATE) 11/19/18 04:45 MPV 7.9 fL (7.4-11.0) 11/21/18 04:50 Neut % (Auto) 42.5 % (42.0-75.0) 11/21/18 04:50 Lymph % (Auto) 46.4 % (21.0-51.0) 11/21/18 04:50 [place] % (Auto) 6.8 % (0.0-13.0) 11/21/18 04:50 Eos % (Auto) 3.7 % (0.9-2.9) H 11/21/18 04:50 Baso % (Auto) 0.6 % (0.2-1.0) 11/21/18 04:50 Neut # (Auto) 2.1 x10^3/uL (2.2-4.8) L 11/21/18 04:50 Lymph # (Auto) 2.3 X10^3/uL (1.3-2.9) 11/21/18 04:50 [place] # (Auto) 0.3 x10^3/uL (0.3-0.8) 11/21/18 04:50 Eos # (Auto) 0.2 x10^3/uL (0.0-0.2) 11/21/18 04:50 Baso # (Auto) 0.0 X10^3/uL (0.0-0.1) 11/21/18 04:50 Absolute Nucleated RBC 0.0 /100WBC 11/21/18 04:50 Total Counted 100 11/19/18 04:45 Neutrophils % (Manual) 46 % (39-76) 11/19/18 04:45 Lymphocytes % (Manual) 45 % (13-43) H 11/19/18 04:45 Monocytes % (Manual) 5 % (4-9) 11/19/18 04:45 Eosinophils % (Manual) 4 % (0-6) 11/19/18 04:45 Plt Morphology Comment Normal (NORMAL) 11/19/18 04:45 RBC Morphology Normal (NORMAL) 11/19/18 04:45 Sodium 136 mmol/L (136-145) 11/21/18 04:50 Corrected Sodium 138 mmol/L (136-145) 11/21/18 04:50 Potassium 3.7 mmol/L (3.5-5.1) 11/21/18 04:50 Chloride 102 mmol/L (98-107) 11/21/18 04:50 Carbon Dioxide 25.9 mmol/L (21-32) 11/21/18 04:50 BUN 10 mg/dL (7-18) 11/21/18 04:50 Creatinine 0.75 mg/dL (0.55-1.02) 11/21/18 04:50 Est GFR (MDRD) Af Amer > 60 (>60) 11/21/18 04:50 Est GFR (MDRD) Non-Af > 60 (>60) 11/21/18 04:50 Glucose 163 mg/dL (65-99) H 11/21/18 04:50 POC Glucose (mg/dL) 299 mg/dL (65-99) H 11/19/18 11:15 Hemoglobin A1c 12.9 % 11/18/18 14:00 Calcium 9.1 mg/dL (8.5-10.1) 11/21/18 04:50 Corrected Calcium 10.0 mg/dL (8.5-10.1) 11/21/18 04:50 Magnesium 1.6 mg/dL (1.7-2.9) L 11/21/18 04:50 Total Bilirubin 0.20 mg/dL (0.2-1.0) 11/21/18 04:50 AST 25 Units/L (15-37) 11/21/18 04:50 ALT 23 Units/L (12-78) 11/21/18 04:50 Alkaline Phosphatase 91 Units/L (46-116) 11/21/18 04:50 Total Protein 6.4 g/dL (6.4-8.2) 11/21/18 04:50 Albumin 2.9 g/dL (3.4-5.0) L 11/21/18 04:50 Globulin 3.5 g/dL (2.5-4.5) 11/21/18 04:50 Albumin/Globulin Ratio 0.8 Ratio (1.1-2.1) L 11/21/18 04:50 - Plan (1) Hyperglycemia Status: Acute Plan: LANTUS 15 UNITS SC DAILY, HUMULIN R SLIDING SCALE, OTBS, CONTINUE TO MONITOR (2) Weakness Status: Acute Plan: PHYSICAL THERAPY, CONTINUE TO MONITOR (3) Hypertension Status: Chronic Qualifiers: Hypertension type: essential hypertension Qualified Code(s): I10 - Essential (primary) hypertension
[2018-11-21 23:50] LABS: BILIRUBIN,URINE NEGATIVE (NEGATIVE); BLOOD/HEMOGLOBIN,URINE NEGATIVE (NEGATIVE); GLUCOSE, URINE 4+ (NEGATIVE); KETONES,URINE NEGATIVE (NEGATIVE); LEUKOCYTE ESTERASE ,URINE NEGATIVE (NEGATIVE); NITRITES,URINE NEGATIVE (NEGATIVE); PROTEIN,URINE NEGATIVE (NEGATIVE); UROBILINOGEN,URINE NORMAL (NORMAL)
[2018-11-21 23:56] LABS: APPEARANCE,URINE CLEAR (CLEAR); COLOR,URINE PALE YELLOW (YELLOW)
[2018-11-22] MEDS: NS 1000 ML 1,000 ML IV SCH (03:14)
[2018-11-22] MEDS: NORCO 10/325 TAB PO PRN (03:27)
[2018-11-22 05:25] LABS: BASOPHILS % (AUTO) 0.7 % (0.2-1.0); EOSINOPHILS # (AUTO) 0.2 x10^3/uL (0.0-0.2); EOSINOPHILS % (AUTO) 4.5 % (0.9-2.9); HEMATOCRIT 34.2 % (36.0-47.0); HEMOGLOBIN 11.5 g/dL (12.0-16.0); LYMPHOCYTES # (AUTO) 2.2 X10^3/uL (1.3-2.9); LYMPHOCYTES % (AUTO) 50.1 % (21.0-51.0); MEAN CORPUSCULAR HEMOGLOBIN 28.5 pg (27.0-34.0); MEAN CORPUSCULAR HGB CONC 33.6 g/dL (33.0-35.0); MEAN CORPUSCULAR VOLUME 84.9 fL (80.0-100.0); MEAN PLATELET VOLUME 8.5 fL (7.4-11.0); MONOCYTES # (AUTO) 0.3 x10^3/uL (0.3-0.8); MONOCYTES % (AUTO) 7.4 % (0.0-13.0); NEUTROPHILS # (AUTO) 1.6 x10^3/uL (2.2-4.8); NEUTROPHILS % (AUTO) 37.3 % (42.0-75.0); PLATELET COUNT 197 X10^3/uL (150.0-450.0); RED BLOOD COUNT 4.03 X10^6/uL (3.5-5.4); RED CELL DISTRIBUTION WIDTH 15.1 % (11.6-16.5); WHITE BLOOD COUNT 4.3 X10^3/uL (3.6-10.0)
[2018-11-22] MEDS: MYSOLINE PO SCH ×3 (05:31→21:13)
[2018-11-22 05:40] LABS: ALANINE AMINOTRANSFERASE 22 Units/L (12-78); ALBUMIN 2.7 g/dL (3.4-5.0); ALKALINE PHOSPHATASE 82 Units/L (46-116); BLOOD UREA NITROGEN 9 mg/dL (7-18); CALCIUM 8.6 mg/dL (8.5-10.1); CARBON DIOXIDE 25.2 mmol/L (21-32); CHLORIDE 103 mmol/L (98-107); COR CA(FOR HYPOALB) 9.6 mg/dL (8.5-10.1); COR NA(FOR HYPERGLY) 141 mmol/L (136-145); CREATININE 0.73 mg/dL (0.55-1.02); SODIUM 137 mmol/L (136-145); TOTAL PROTEIN 5.9 g/dL (6.4-8.2); eGFR NON BLACK RACES > 60 (>60)
[2018-11-22] MEDS: HumuLIN R SC PRN ×4 (05:42→21:33)
[2018-11-22 05:51] LABS: ASPARTATE AMINO TRANSFERASE 19 Units/L (15-37)
[2018-11-22] MEDS: K-DUR TAB 20 MEQ PO PRN (06:08)
--- NOTE | 2018-11-22 07:14 | RAD ---
HISTORY: Shortness of breath Study: Chest AP portable Comparison: 07/22/2018 Findings: Patient is status post median sternotomy and CABG. The heart is minimally enlarged. No congestive heart failure is noted. The aorta is calcified. The lungs are hyperinflated but free of acute alveolar infiltrates. No pleural effusions are identified. The bony thorax is unremarkable. IMPRESSION: Minimal cardiomegaly without congestive heart failure Lungs hyperinflated but free of acute infiltrates Reported By:
[2018-11-22] MEDS: TORADOL 15 MG VIAL IVP PRN ×3 (09:24→23:33)
[2018-11-22] MEDS: LANTUS SC SCH (09:25)
[2018-11-22] MEDS: PEPCID 20 MG IV PREMIX* 20 MG/50 ML BAG IV SCH ×2 (09:26→20:36)
[2018-11-22] MEDS: LOVENOX INJ 30 MG SYR SC SCH ×2 (09:26→20:35)
[2018-11-22] MEDS: BENICAR TAB 40 MG PO SCH ×2 (09:27→20:34)
[2018-11-22] MEDS: VITAMIN D3 PO SCH (09:27)
[2018-11-22] MEDS: XANAX PO PRN ×2 (09:27→20:33)
[2018-11-22] MEDS: ASPIRIN 81 MG CHEWTAB PO SCH (09:28)
[2018-11-22] MEDS: HEMOCYTE-PLUS PO SCH (09:28)
[2018-11-22] MEDS: TRICOR TAB 145 MG PO SCH (09:28)
[2018-11-22] MEDS: PROTONIX TAB 40 MG PO SCH ×2 (09:28→20:34)
[2018-11-22] MEDS: ZOFRAN INJ 4 MG VIAL IVP PRN (09:34)
[2018-11-22] MEDS ORDERED: MAGNESIUM SULFATE 1 GRAM/100 mL PREMIX 1 GM/100 ML BAG IV PRN (09:47)
[2018-11-22] MEDS: CYMBALTA PO SCH (10:56)
--- NOTE | 2018-11-22 11:04 | PCM.PROG ---
Progress Note - Progress Note for Day of Date of Exam: 11/21/18 - Subjective Subjective: WAS ADMITTED FOR HYPERGLYCEMIA AND RENAL FAILURE. TODAY, SHE IS ALERT AND ORIENTED, LYING IN BED ON MORNING ROUNDS. SHE CONTINUES TO REPORT GENERALIZED WEAKNESS AND PAIN TODAY. STAFF REPORTS THAT SHE CONTINUES TO BE UNSTEADY ON AMBULATION. HER BLOOD GLUCOSE LEVELS HAVE REMAINED ELEVATED. ON EXAMINATION, HEART IS REGULAR IN RATE AND RHYTHM. BILATERAL LUNGS ARE NOTED WITH DIMINISHED LUNG SOUNDS THROUGHOUT. ABDOMEN IS ROUND, SOFT, AND NON-TENDER WITH NORMAL BOWEL SOUNDS NOTED IN ALL QUADRANTS. HER VITALS THIS MORNING ARE 99.2-70-20-96%-170/80. LABS WERE OBTAINED. ABNORMAL LAB VALUES INCLUDE THE FOLLOWING: HGB 11.9, HCT 35.1, GLUCOSE 163, ALBUMIN 2.9. BLOOD GLUCOSE LEVELS HAVE REMAINED ELEVATED THROUGHOUT THE NIGHT. SHE HAS BEEN RECEIVING SLIDING SCALE INSULIN AND LANTUS. THERPY DID NOT WORK WITH PATIENT DUE TO ELEVATED GLUCOSE LEVELS. THERAPY MAY WORK WITH PATIENT DESPITE ELEVATED BLOOD GLUCOSE. WE WILL CONTINUE WITH CURRENT PLAN OF CARE TODAY. OTHERWISE, WE PLAN TO FOLLOW UP WITH AM LABS AND CONTINUE TO MONITOR. - Past Medical Family Social History Past Med/Fam/Surg Hx: No changes since H&P Allergies: Allergies Penicillins Allergy (Verified 07/20/18 20:37) - Review of Systems ROS: No change since H&P - Vital Signs and I&O's Vital Signs: Temperature 98.8 F Pulse Rate [Apical] 78 Pulse Rate 76 Respiratory Rate 18 Blood Pressure [Right Arm] 169/80 Blood Pressure [Left Arm] 182/85 Blood Pressure 148/64 O2 Sat by Pulse Oximetry 96 Intake and Output: Intake & Output 11/19/18 11/20/18 11/21/18 11/22/18 11:59 11:59 11:59 11:59 Intake Total 2346 / 2346 2059 1540 / 1540 3620 / 3620 Balance 2346 / 2346 2059 1540 / 1540 3620 / 3620 - Physical Exam Oriented: Normal Eyes: Normal Ear: Normal Throat: Normal Respiratory: Generalized, Diminished Cardiovascular: Normal : Normal Auscultation: Bowel Sounds: Normal Palpation: Normal Tenderness: Normal Skin: Normal Musculoskeletal: Normal Psychiatric: Depression Mood Description: Calm Affect: Normal Speech Pattern: Clear, Appropriate - Laboratory and Diagnostics Result Diagrams: 11/22/18 04:40 06/03/19 04:40 Labs: Laboratory WBC 4.3 X10^3/uL (3.6-10.0) 11/22/18 04:40 RBC 4.03 X10^6/uL (3.5-5.4) 11/22/18 04:40 Hgb 11.5 g/dL (12.0-16.0) L 11/22/18 04:40 Hct 34.2 % (36.0-47.0) L 11/22/18 04:40 MCV 84.9 fL (80.0-100.0) 11/22/18 04:40 MCH 28.5 pg (27.0-34.0) 11/22/18 04:40 MCHC 33.6 g/dL (33.0-35.0) 11/22/18 04:40 RDW 15.1 % (11.6-16.5) 11/22/18 04:40 Plt Count 197 X10^3/uL (150.0-450.0) 11/22/18 04:40 Plt Count Comment Adequate (ADEQUATE) 11/19/18 04:45 MPV 8.5 fL (7.4-11.0) 11/22/18 04:40 Neut % (Auto) 37.3 % (42.0-75.0) L 11/22/18 04:40 Lymph % (Auto) 50.1 % (21.0-51.0) 11/22/18 04:40 [place] % (Auto) 7.4 % (0.0-13.0) 11/22/18 04:40 Eos % (Auto) 4.5 % (0.9-2.9) H 11/22/18 04:40 Baso % (Auto) 0.7 % (0.2-1.0) 11/22/18 04:40 Neut # (Auto) 1.6 x10^3/uL (2.2-4.8) L 11/22/18 04:40 Lymph # (Auto) 2.2 X10^3/uL (1.3-2.9) 11/22/18 04:40 [place] # (Auto) 0.3 x10^3/uL (0.3-0.8) 11/22/18 04:40 Eos # (Auto) 0.2 x10^3/uL (0.0-0.2) 11/22/18 04:40 Baso # (Auto) 0.0 X10^3/uL (0.0-0.1) 11/22/18 04:40 Absolute Nucleated RBC 0.1 /100WBC 11/22/18 04:40 Total Counted 100 11/19/18 04:45 Neutrophils % (Manual) 46 % (39-76) 11/19/18 04:45 Lymphocytes % (Manual) 45 % (13-43) H 11/19/18 04:45 Monocytes % (Manual) 5 % (4-9) 11/19/18 04:45 Eosinophils % (Manual) 4 % (0-6) 11/19/18 04:45 Plt Morphology Comment Normal (NORMAL) 11/19/18 04:45 RBC Morphology Normal (NORMAL) 11/19/18 04:45 Sodium 137 mmol/L (136-145) 11/22/18 04:40 Corrected Sodium 141 mmol/L (136-145) 11/22/18 04:40 Potassium 3.5 mmol/L (3.5-5.1) 11/22/18 04:40 Chloride 103 mmol/L (98-107) 11/22/18 04:40 Carbon Dioxide 25.2 mmol/L (21-32) 11/22/18 04:40 BUN 9 mg/dL (7-18) 11/22/18 04:40 Creatinine 0.73 mg/dL (0.55-1.02) 11/22/18 04:40 Est GFR (MDRD) Af Amer > 60 (>60) 11/22/18 04:40 Est GFR (MDRD) Non-Af > 60 (>60) 11/22/18 04:40 Glucose 263 mg/dL (65-99) H 11/22/18 04:40 POC Glucose (mg/dL) 248 mg/dL (65-99) H 11/22/18 05:38 Hemoglobin A1c 12.9 % 11/18/18 14:00 Calcium 8.6 mg/dL (8.5-10.1) 11/22/18 04:40 Corrected Calcium 9.6 mg/dL (8.5-10.1) 11/22/18 04:40 Magnesium 1.7 mg/dL (1.7-2.9) 11/22/18 04:40 Total Bilirubin 0.20 mg/dL (0.2-1.0) 11/22/18 04:40 AST 19 Units/L (15-37) 11/22/18 04:40 ALT 22 Units/L (12-78) 11/22/18 04:40 Alkaline Phosphatase 82 Units/L (46-116) 11/22/18 04:40 Total Protein 5.9 g/dL (6.4-8.2) L 11/22/18 04:40 Albumin 2.7 g/dL (3.4-5.0) L 11/22/18 04:40 Globulin 3.2 g/dL (2.5-4.5) 11/22/18 04:40 Albumin/Globulin Ratio 0.8 Ratio (1.1-2.1) L 11/22/18 04:40 Specimen Type Clean catch urine 11/21/18 22:30 Urine Color Pale yellow (YELLOW) 11/21/18 22:30 Urine Appearance Clear (CLEAR) 11/21/18 22:30 Urine pH 6.0 (5.0 - 8.0) 11/21/18 22:30 Ur Specific [place] 1.010 (1.000-1.030) 11/21/18 22:30 Urine Protein Negative (NEGATIVE) 11/21/18 22:30 Urine Glucose (UA) 4+ (NEGATIVE) 11/21/18 22:30 Urine Ketones Negative (NEGATIVE) 11/21/18 22:30 Urine Occult Blood Negative (NEGATIVE) 11/21/18 22:30 Urine Nitrite Negative (NEGATIVE) 11/21/18 22:30 Urine Bilirubin Negative (NEGATIVE) 11/21/18 22:30 Urine Urobilinogen Normal (NORMAL) 11/21/18 22:30 Ur Leukocyte Esterase Negative (NEGATIVE) 11/21/18 22:30 - Plan (1) Hyperglycemia Status: Acute Plan: LANTUS 15 UNITS SC DAILY, HUMULIN R SLIDING SCALE, OTBS, CONTINUE TO MONITOR (2) Weakness Status: Acute Plan: PHYSICAL THERAPY, CONTINUE TO MONITOR (3) Hypertension Status: Chronic Qualifiers: Hypertension type: essential hypertension Qualified Code(s): I10 - Essential (primary) hypertension
[2018-11-22] MEDS: SYNTHROID 50 mcg TAB PO SCH (17:16)
[2018-11-22] MEDS: CRESTOR TAB 10 MG PO SCH (20:33)
[2018-11-22] MEDS: AMBIEN PO SCH (20:34)
[2018-11-22] MEDS: SNACK - Diabetic Appropriate PO SCH (21:13)
[2018-11-23] MEDS: NS 1000 ML 1,000 ML IV SCH ×5 (01:00→23:50)
[2018-11-23] MEDS: ULTRAM PO PRN (04:13)
[2018-11-23] MEDS: MYSOLINE PO SCH ×3 (05:09→20:59)
[2018-11-23] MEDS: TORADOL 15 MG VIAL IVP PRN ×2 (05:09→11:40)
[2018-11-23] MEDS: HumuLIN R SC PRN ×4 (05:33→20:50)
[2018-11-23 06:20] LABS: BASOPHILS % (AUTO) 0.7 % (0.2-1.0); EOSINOPHILS # (AUTO) 0.2 x10^3/uL (0.0-0.2); EOSINOPHILS % (AUTO) 4.3 % (0.9-2.9); HEMATOCRIT 32.9 % (36.0-47.0); LYMPHOCYTES # (AUTO) 2.2 X10^3/uL (1.3-2.9); LYMPHOCYTES % (AUTO) 49.9 % (21.0-51.0); MEAN CORPUSCULAR HEMOGLOBIN 28.2 pg (27.0-34.0); MEAN CORPUSCULAR HGB CONC 33.5 g/dL (33.0-35.0); MEAN CORPUSCULAR VOLUME 84.1 fL (80.0-100.0); MEAN PLATELET VOLUME 8.2 fL (7.4-11.0); MONOCYTES # (AUTO) 0.3 x10^3/uL (0.3-0.8); MONOCYTES % (AUTO) 7.7 % (0.0-13.0); NEUTROPHILS # (AUTO) 1.7 x10^3/uL (2.2-4.8); NEUTROPHILS % (AUTO) 37.4 % (42.0-75.0); PLATELET COUNT 193 X10^3/uL (150.0-450.0); RED BLOOD COUNT 3.91 X10^6/uL (3.5-5.4); WHITE BLOOD COUNT 4.5 X10^3/uL (3.6-10.0)
[2018-11-23 06:46] LABS: ALANINE AMINOTRANSFERASE 24 Units/L (12-78); ALBUMIN 2.7 g/dL (3.4-5.0); ALKALINE PHOSPHATASE 80 Units/L (46-116); BLOOD UREA NITROGEN 11 mg/dL (7-18); CALCIUM 8.7 mg/dL (8.5-10.1); CARBON DIOXIDE 23.6 mmol/L (21-32); CHLORIDE 104 mmol/L (98-107); COR CA(FOR HYPOALB) 9.7 mg/dL (8.5-10.1); COR NA(FOR HYPERGLY) 140 mmol/L (136-145); MAGNESIUM 1.8 mg/dL (1.7-2.9); SODIUM 136 mmol/L (136-145); eGFR NON BLACK RACES > 60 (>60)
[2018-11-23 07:05] LABS: ASPARTATE AMINO TRANSFERASE 21 Units/L (15-37)
[2018-11-23] MEDS: LOVENOX INJ 30 MG SYR SC SCH ×2 (08:41→20:51)
[2018-11-23] MEDS: PEPCID 20 MG IV PREMIX* 20 MG/50 ML BAG IV SCH ×2 (08:42→20:46)
[2018-11-23] MEDS: CYMBALTA PO SCH (08:43)
[2018-11-23] MEDS: VITAMIN D3 PO SCH (08:43)
[2018-11-23] MEDS: TRICOR TAB 145 MG PO SCH (08:44)
[2018-11-23] MEDS: BENICAR TAB 40 MG PO SCH ×2 (08:44→20:45)
[2018-11-23] MEDS: HEMOCYTE-PLUS PO SCH (08:44)
[2018-11-23] MEDS: PROTONIX TAB 40 MG PO SCH ×2 (08:44→20:46)
[2018-11-23] MEDS: ASPIRIN 81 MG CHEWTAB PO SCH (08:44)
[2018-11-23] MEDS ORDERED: LANTUS SC SCH (09:00)
[2018-11-23] MEDS ORDERED: LANTUS SC ONE (10:05)
[2018-11-23 12:31] LABS: STOOL FOR WBC POSITIVE (NEGATIVE)
[2018-11-23] MEDS: SYNTHROID 50 mcg TAB PO SCH (15:30)
[2018-11-23] MEDS ORDERED: SNACK - Diabetic Appropriate PO SCH (20:00)
[2018-11-23] MEDS: XANAX PO PRN (20:45)
[2018-11-23] MEDS: CRESTOR TAB 10 MG PO SCH (20:45)
[2018-11-23] MEDS: AMBIEN PO SCH (20:45)
[2018-11-23] MEDS: NORCO 10/325 TAB PO PRN (20:46)
[2018-11-23] MEDS: SNACK - Diabetic Appropriate PO SCH (20:52)
--- NOTE | 2018-11-23 20:55 | PCM.PROG ---
Progress Note - Progress Note for Day of Date of Exam: 11/22/18 - Subjective Subjective: WAS ADMITTED FOR HYPERGLYCEMIA AND RENAL FAILURE. TODAY, SHE IS ALERT AND ORIENTED, LYING IN BED ON MORNING ROUNDS. SHE CONTINUES TO REPORT GENERALIZED WEAKNESS AND PAIN TODAY. STAFF REPORTS THAT SHE CONTINUES TO BE UNSTEADY ON AMBULATION. HER BLOOD GLUCOSE LEVELS HAVE REMAINED ELEVATED. ON EXAMINATION, HEART IS REGULAR IN RATE AND RHYTHM. BILATERAL LUNGS ARE NOTED WITH DIMINISHED LUNG SOUNDS THROUGHOUT. ABDOMEN IS ROUND, SOFT, AND NON-TENDER WITH NORMAL BOWEL SOUNDS NOTED IN ALL QUADRANTS. HER VITALS THIS MORNING ARE 98.8-78-20-96%-169/80. LABS WERE OBTAINED. ABNORMAL LAB VALUES INCLUDE THE FOLLOWING: HGB 11.5, HCT 34.2, GLUCOSE 263, TOTAL PROTEIN 5.9, ALBUMIN 2.7. BLOOD GLUCOSE LEVELS HAVE REMAINED ELEVATED THROUGHOUT THE NIGHT. WE WILL INCREASE HER LANTUS TO 20 UNITS SC DAILY TODAY. OTHERWISE, WE PLAN TO FOLLOW UP WITH AM LABS AND CONTINUE TO MONITOR. - Past Medical Family Social History Past Med/Fam/Surg Hx: No changes since H&P Allergies: Allergies Penicillins Allergy (Verified 07/20/18 20:37) - Review of Systems ROS: No change since H&P - Vital Signs and I&O's Vital Signs: Temperature 99.2 F Pulse Rate [Apical] 78 Pulse Rate 76 Respiratory Rate 18 Blood Pressure [Right Arm] 178/84 Blood Pressure [Left Arm] 158/80 Blood Pressure 148/64 O2 Sat by Pulse Oximetry 94 Intake and Output: Intake & Output 11/21/18 11/22/18 11/23/18 11/24/18 11:59 11:59 11:59 11:59 Intake Total 1540 / 1540 3620 / 3620 2990 / 2990 550 / 550 Balance 1540 / 1540 3620 / 3620 2990 / 2990 550 / 550 - Physical Exam Oriented: Normal Eyes: Normal Ear: Normal Throat: Normal Respiratory: Generalized, Diminished Cardiovascular: Normal : Normal Auscultation: Bowel Sounds: Normal Palpation: Normal Tenderness: Normal Skin: Normal Musculoskeletal: Normal Psychiatric: Depression Mood Description: Calm Affect: Normal Speech Pattern: Clear, Appropriate - Laboratory and Diagnostics Result Diagrams: 11/23/18 05:30 11/23/18 05:30 Labs: 11/23/18 11:55 Stool - Final Laboratory WBC 4.5 X10^3/uL (3.6-10.0) 11/23/18 05:30 RBC 3.91 X10^6/uL (3.5-5.4) 11/23/18 05:30 Hgb 11.0 g/dL (12.0-16.0) L 11/23/18 05:30 Hct 32.9 % (36.0-47.0) L 11/23/18 05:30 MCV 84.1 fL (80.0-100.0) 11/23/18 05:30 MCH 28.2 pg (27.0-34.0) 11/23/18 05:30 MCHC 33.5 g/dL (33.0-35.0) 11/23/18 05:30 RDW 15.0 % (11.6-16.5) 11/23/18 05:30 Plt Count 193 X10^3/uL (150.0-450.0) 11/23/18 05:30 Plt Count Comment Adequate (ADEQUATE) 11/19/18 04:45 MPV 8.2 fL (7.4-11.0) 11/23/18 05:30 Neut % (Auto) 37.4 % (42.0-75.0) L 11/23/18 05:30 Lymph % (Auto) 49.9 % (21.0-51.0) 11/23/18 05:30 [place] % (Auto) 7.7 % (0.0-13.0) 11/23/18 05:30 Eos % (Auto) 4.3 % (0.9-2.9) H 11/23/18 05:30 Baso % (Auto) 0.7 % (0.2-1.0) 11/23/18 05:30 Neut # (Auto) 1.7 x10^3/uL (2.2-4.8) L 11/23/18 05:30 Lymph # (Auto) 2.2 X10^3/uL (1.3-2.9) 11/23/18 05:30 [place] # (Auto) 0.3 x10^3/uL (0.3-0.8) 11/23/18 05:30 Eos # (Auto) 0.2 x10^3/uL (0.0-0.2) 11/23/18 05:30 Baso # (Auto) 0.0 X10^3/uL (0.0-0.1) 11/23/18 05:30 Absolute Nucleated RBC 0.0 /100WBC 11/23/18 05:30 Total Counted 100 11/19/18 04:45 Neutrophils % (Manual) 46 % (39-76) 11/19/18 04:45 Lymphocytes % (Manual) 45 % (13-43) H 11/19/18 04:45 Monocytes % (Manual) 5 % (4-9) 11/19/18 04:45 Eosinophils % (Manual) 4 % (0-6) 11/19/18 04:45 Plt Morphology Comment Normal (NORMAL) 11/19/18 04:45 RBC Morphology Normal (NORMAL) 11/19/18 04:45 Sodium 136 mmol/L (136-145) 11/23/18 05:30 Corrected Sodium 140 mmol/L (136-145) 11/23/18 05:30 Potassium 3.9 mmol/L (3.5-5.1) 11/23/18 05:30 Chloride 104 mmol/L (98-107) 11/23/18 05:30 Carbon Dioxide 23.6 mmol/L (21-32) 11/23/18 05:30 BUN 11 mg/dL (7-18) 11/23/18 05:30 Creatinine 0.80 mg/dL (0.55-1.02) 11/23/18 05:30 Est GFR (MDRD) Af Amer > 60 (>60) 11/23/18 05:30 Est GFR (MDRD) Non-Af > 60 (>60) 11/23/18 05:30 Glucose 249 mg/dL (65-99) H 11/23/18 05:30 POC Glucose (mg/dL) 250 mg/dL (65-99) H 11/23/18 11:20 Hemoglobin A1c 12.9 % 11/18/18 14:00 Calcium 8.7 mg/dL (8.5-10.1) 11/23/18 05:30 Corrected Calcium 9.7 mg/dL (8.5-10.1) 11/23/18 05:30 Magnesium 1.8 mg/dL (1.7-2.9) 11/23/18 05:30 Total Bilirubin 0.20 mg/dL (0.2-1.0) 11/23/18 05:30 AST 21 Units/L (15-37) 11/23/18 05:30 ALT 24 Units/L (12-78) 11/23/18 05:30 Alkaline Phosphatase 80 Units/L (46-116) 11/23/18 05:30 Total Protein 6.0 g/dL (6.4-8.2) L 11/23/18 05:30 Albumin 2.7 g/dL (3.4-5.0) L 11/23/18 05:30 Globulin 3.3 g/dL (2.5-4.5) 11/23/18 05:30 Albumin/Globulin Ratio 0.8 Ratio (1.1-2.1) L 11/23/18 05:30 Specimen Type Clean catch urine 11/21/18 22:30 Urine Color Pale yellow (YELLOW) 11/21/18 22:30 Urine Appearance Clear (CLEAR) 11/21/18 22:30 Urine pH 6.0 (5.0 - 8.0) 11/21/18 22:30 Ur Specific [place] 1.010 (1.000-1.030) 11/21/18 22:30 Urine Protein Negative (NEGATIVE) 11/21/18 22:30 Urine Glucose (UA) 4+ (NEGATIVE) 11/21/18 22:30 Urine Ketones Negative (NEGATIVE) 11/21/18 22:30 Urine Occult Blood Negative (NEGATIVE) 11/21/18 22:30 Urine Nitrite Negative (NEGATIVE) 11/21/18 22:30 Urine Bilirubin Negative (NEGATIVE) 11/21/18 22:30 Urine Urobilinogen Normal (NORMAL) 11/21/18 22:30 Ur Leukocyte Esterase Negative (NEGATIVE) 11/21/18 22:30 Stool Description 20g formed brown 11/23/18 11:55 Stl Occult Blood (IFOB) Negative (NEGATIVE) 11/23/18 11:55 Stool for White Cells Positive (NEGATIVE) A 11/23/18 11:55 Stl C. diff Tox B Gene Negative (NEGATIVE) 11/23/18 11:55 Stl C. diff [id number] Negative (NEGATIVE) 11/23/18 11:55 - Plan (1) Hyperglycemia Status: Acute Plan: LANTUS 20 UNITS SC DAILY, HUMULIN R SLIDING SCALE, OTBS, CONTINUE TO MONITOR (2) Weakness Status: Acute Plan: PHYSICAL THERAPY, CONTINUE TO MONITOR (3) Hypertension Status: Chronic Qualifiers: Hypertension type: essential hypertension Qualified Code(s): I10 - Essential (primary) hypertension
[2018-11-24] MEDS: TORADOL 15 MG VIAL IVP PRN ×2 (04:24→13:36)
[2018-11-24 05:31] LABS: BASOPHILS # (AUTO) 0.1 X10^3/uL (0.0-0.1); BASOPHILS % (AUTO) 1.1 % (0.2-1.0); EOSINOPHILS # (AUTO) 0.2 x10^3/uL (0.0-0.2); EOSINOPHILS % (AUTO) 4.9 % (0.9-2.9); HEMATOCRIT 32.1 % (36.0-47.0); HEMOGLOBIN 10.7 g/dL (12.0-16.0); LYMPHOCYTES # (AUTO) 2.4 X10^3/uL (1.3-2.9); LYMPHOCYTES % (AUTO) 49.8 % (21.0-51.0); MEAN CORPUSCULAR HEMOGLOBIN 28.2 pg (27.0-34.0); MEAN CORPUSCULAR HGB CONC 33.4 g/dL (33.0-35.0); MEAN CORPUSCULAR VOLUME 84.4 fL (80.0-100.0); MONOCYTES # (AUTO) 0.5 x10^3/uL (0.3-0.8); MONOCYTES % (AUTO) 9.3 % (0.0-13.0); NEUTROPHILS # (AUTO) 1.7 x10^3/uL (2.2-4.8); NEUTROPHILS % (AUTO) 34.9 % (42.0-75.0); PLATELET COUNT 195 X10^3/uL (150.0-450.0); WHITE BLOOD COUNT 4.8 X10^3/uL (3.6-10.0)
[2018-11-24 05:33] LABS: ALANINE AMINOTRANSFERASE 29 Units/L (12-78); ALBUMIN 2.7 g/dL (3.4-5.0); ALKALINE PHOSPHATASE 75 Units/L (46-116); ASPARTATE AMINO TRANSFERASE 27 Units/L (15-37); BLOOD UREA NITROGEN 10 mg/dL (7-18); CALCIUM 8.9 mg/dL (8.5-10.1); CARBON DIOXIDE 27.4 mmol/L (21-32); CHLORIDE 106 mmol/L (98-107); COR CA(FOR HYPOALB) 9.9 mg/dL (8.5-10.1); COR NA(FOR HYPERGLY) 141 mmol/L (136-145); CREATININE 0.72 mg/dL (0.55-1.02); SODIUM 139 mmol/L (136-145); TOTAL PROTEIN 5.8 g/dL (6.4-8.2); eGFR NON BLACK RACES > 60 (>60)
[2018-11-24] MEDS: MYSOLINE PO SCH ×2 (05:48→13:11)
[2018-11-24] MEDS: HumuLIN R SC PRN ×2 (05:49→11:50)
[2018-11-24] MEDS: K-DUR TAB 20 MEQ PO PRN (06:31)
[2018-11-24] MEDS: VITAMIN D3 PO SCH (08:00)
[2018-11-24] MEDS: ASPIRIN 81 MG CHEWTAB PO SCH (08:00)
[2018-11-24] MEDS: HEMOCYTE-PLUS PO SCH (08:01)
[2018-11-24] MEDS: BENICAR TAB 40 MG PO SCH (08:01)
[2018-11-24] MEDS: CYMBALTA PO SCH (08:01)
[2018-11-24] MEDS: LOVENOX INJ 30 MG SYR SC SCH (08:02)
[2018-11-24] MEDS: PROTONIX TAB 40 MG PO SCH (08:02)
[2018-11-24] MEDS: TRICOR TAB 145 MG PO SCH (08:02)
[2018-11-24] MEDS: PEPCID 20 MG IV PREMIX* 20 MG/50 ML BAG IV SCH (08:02)
[2018-11-24] MEDS: NORCO 10/325 TAB PO PRN (08:03)
[2018-11-24] MEDS ORDERED: LANTUS SC SCH (09:00)
[2018-11-24 12:56] VITALS: BP 152/72
[2018-11-24] MEDS: NS 1000 ML 1,000 ML IV SCH (13:11)
== END 2018-11-24 13:00 | disposition home or self-care (01) | DRG 683 ==
LOC: ICU → OBSVTOIN 13:04 → MED/SURG 11-19 14:04
PROVIDERS: ADMIT Internal Medicine; ATTEND Internal Medicine
DX: E87.1 Hypo-osmolality and hyponatremia; R41.82 Altered mental status, unspecified; I10 Essential (primary) hypertension; N17.8 Other acute kidney failure; R13.11 Dysphagia, oral phase; R63.0 Anorexia; E11.65 Type 2 diabetes mellitus with hyperglycemia; R26.89 Other abnormalities of gait and mobility; R53.1 Weakness
CPT/HCPCS: 36415; 71010; 71045; 80053; 81003; 82270; 83036; 83630; 83735; 84132; 85025; 87045; 87427; 87449; 87493; 87899; 92526; 92610; 97110; 97162; 97166; 97535; A4222; S0028; J1650; J1815; J1885; J2405; J3475; J7030

== ENCOUNTER 2018-11-24 13:00 | Inpatient (IN) ==
[2018-11-24] MEDS: MYSOLINE PO SCH ×2 (13:55→21:00)
[2018-11-24] MEDS: SYNTHROID 50 mcg TAB PO SCH (15:58)
[2018-11-24] MEDS: HumuLIN R SC PRN (17:17)
[2018-11-24] MEDS: NORCO 10/325 TAB PO PRN (17:29)
[2018-11-24] MEDS ORDERED: SNACK - Diabetic Appropriate PO SCH ×2 (20:00)
[2018-11-24] MEDS: AMBIEN PO SCH (20:55)
[2018-11-24] MEDS: BENICAR TAB 40 MG PO SCH (20:55)
[2018-11-24] MEDS: CRESTOR TAB 10 MG PO SCH (20:57)
[2018-11-24] MEDS: PROTONIX TAB 40 MG PO SCH (20:57)
[2018-11-24] MEDS: LOVENOX INJ 30 MG SYR SC SCH (20:58)
[2018-11-24] MEDS: SNACK - Diabetic Appropriate PO SCH (21:01)
[2018-11-24] MEDS: ULTRAM PO PRN (21:34)
[2018-11-25] MEDS: NORCO 10/325 TAB PO PRN ×3 (01:40→23:44)
[2018-11-25] MEDS: SYNTHROID 50 mcg TAB PO SCH (06:15)
[2018-11-25] MEDS: MYSOLINE PO SCH ×3 (06:15→21:14)
[2018-11-25] MEDS: ULTRAM PO PRN ×2 (06:16→21:13)
[2018-11-25] MEDS: TRICOR TAB 145 MG PO SCH (08:11)
[2018-11-25] MEDS: ASPIRIN 81 MG CHEWTAB PO SCH (08:11)
[2018-11-25] MEDS: CYMBALTA PO SCH (08:11)
[2018-11-25] MEDS: HEMOCYTE-PLUS PO SCH (08:11)
[2018-11-25] MEDS: VITAMIN D3 PO SCH (08:12)
[2018-11-25] MEDS: LOVENOX INJ 30 MG SYR SC SCH ×2 (08:12→21:11)
[2018-11-25] MEDS: LANTUS SC SCH (08:12)
[2018-11-25] MEDS: BENICAR TAB 40 MG PO SCH ×2 (08:13→21:12)
[2018-11-25] MEDS: XANAX PO PRN ×2 (08:13→21:12)
[2018-11-25] MEDS: PROTONIX TAB 40 MG PO SCH ×2 (08:13→21:18)
[2018-11-25 08:21] VITALS: BMI 21.2
--- NOTE | 2018-11-25 12:49 | PT/OTEVAL ---
PT/OT OBJECTIVES - HISTORY Prescription: PT consult Diagnosis: Weakness related to renal failure Precautions: falls, pain aggravation, High Glucose Prior Level of Function: Independent - COGNITION Mental Status: Alert, Oriented, Name, Date, Place, Purpose Communication Status: Verbal, Hard of Hearing Ability to Follow Directions: 2 Step - PAIN Right Shoulder Pain Scale: Mild (3-4) Right Knee Pain Scale: Moderate (5-6) Left Pain Scale: Mild (3-4) Comments: left thorax Lower Back Pain Scale: Moderate (5-6) - BED MOBILITY Rolling: Minimal Scooting: Minimal Bridging: Minimal - TRANSFERS Supine to Sit: Minimal, x1 Sit to Stand: Minimal, x1 Sit or Stand Pivot: Minimal, x1 Safety Comment: mod verbal cueing for proper hand placement and safety. - BALANCE Static Sitting: Good Standing: Fair Dynamic Sitting: Good Standing: Fair - NEUROMOTOR/SENSATION Pierce. Lower Ext Sensation: WFL Coordination: WFL [place]. Upper Ext Sensation: WFL Coordination: WFL - ROM Bilateral LE ROM: WFL - STRENGTH Bilateral LE Strength Number: 3 Other comment: B LE marizol graded 3/5 Bilateral UE Strength Number: 3 - GAIT Pt. ambulates how many feet?: 35 Amount of assistance required: Moderate Amount of Assistance Required: Minimal Type of Assistive Device: Rolling Walker PT/OT ASSESSMENT - PT Problem List: Decreased Bed Mobility, Decreased Transfers, Decreased Gait, Decreased Balance, Decreased Safety, Decreased LE Strength - PT GOALS Short Term Goals Days: 10 Mobility: Pt to be indep with bed mobility to allow pt's return to PLOF. Transfers: Pt to be indep with transfers to allow pt's return to PLOF. Gait: Pt to ambulate @ 80 ft using appropriate AD @ supervision to improve FAT. Institutional Research Director Goals Days: 20 Gait: Pt to ambulate 350 ft using appropriate AD @ mod independence for safe d/c. Balance: Pt improve standing S/D balance to G+/G+ to prevent from falls. ROM/Strength: Pt to improve B LE mm strengh to 1-2 mm increments to improve stability. - PATIENT GOALS Goals Discussed with Patient/Family: Yes Rehabilitation Potential: good Justification for Potential: higher PLOF Weakness and Barriers: Pain - PLAN Suggested Treatment Plan: Bed Mobility Training, Therapeutic Activity, Gait Training, Neuro Re-education, Therapeutic Ex with HEP, Home Management, Patient Education, Family Education - FREQUENCY AND DURATION PT: 6x Expected Continuation of Care at Discharge: Determined on Progress
--- NOTE | 2018-11-25 12:56 | PT/OTEVAL ---
PT/OT OBJECTIVES - HISTORY Prescription: OT consult Diagnosis: hyperglycemia, Renal failure Precautions: fall PMH: PMHx is significnat but is not limited to acute kidney failure, anemia, anxiety d/o, atherosclerotic heart disease, COPD, essential HTN, GERD, Generalized abdominal pain,Low back pain, MDD, Nausea, occulaar pain, pain in B hips, repeated falls, RA,SOB, tremor, Type 2 DM, vit B12 Prior Level of Function: Independent Other: Per pt report, pt was living alone in a single level house w/ one step to get inside the house and 1 step to get into laundry room. Pt reported to be independent with ADL and IADL and functional mobility. Pt reported of owning RW, and quad cane but is not using it - COGNITION Mental Status: Alert, Oriented, Name, Date, Place, Purpose Communication Status: Verbal Ability to Follow Directions: 3 Step - PAIN Right Shoulder Pain Scale: Mild (3-4) Right Knee Pain Scale: Mild (3-4) Left Comments: left thorax Lower Back Pain Scale: Moderate (5-6) - TRANSFERS Supine to Sit: Minimal Sit to Stand: Minimal Sit or Stand Pivot: Minimal - ADL'S Feeding: Independent Grooming: Supervision Upper Body ADL: Supervision Lower Body ADL: Setup, Minimum Toileting: Minimum - BALANCE Static Sitting: Good Standing: Fair Dynamic Sitting: Good Standing: Fair - NEUROMOTOR/SENSATION Pierce. Lower Ext Sensation: WFL Coordination: WFL [place]. Upper Ext Sensation: WFL Coordination: WFL - HAND DOMINANCE Extremity Function: Hand Dominance: Right - ROM Bilateral UE ROM: WFL Muscle Tone: WFL - STRENGTH Bilateral UE Strength Number: 3 Bilateral LE Strength Number: 3 Other comment: Freddy Rich graded 3/5 PT/OT ASSESSMENT - OT Problem List: Decreased Mobility ADL's, Decreased Safety Aware, Decreased UE Strength, Other Other, comment: decreased functional activity tolerance - PT GOALS Short Term Goals Days: 10 Mobility: Pt to be indep with bed mobility to allow pt's return to PLOF. Transfers: Pt to be indep with transfers to allow pt's return to PLOF. Gait: Pt to ambulate @ 80 ft using appropriate AD @ supervision to improve FAT. Service Transformer Repair Supervisor Goals Days: 20 Gait: Pt to ambulate 350 ft using appropriate AD @ mod independence for safe d/c. Balance: Pt improve standing S/D balance to G+/G+ to prevent from falls. ROM/Strength: Pt to improve B LE mm strengh to 1-2 mm increments to improve stability. - OT GOALS Service Transformer Repair Supervisor Goals Days: 10 Mobility for ADL's: Pt will improve toilet t/f independently with AE as needed Safety Awareness: Pt will demonstrate G safety awareness to decerase fall risk Dressing: Pt will perform UB/LB dressing independently with AE as needed. Upper Ext. Strength/Use: Pt will increase BUE strength to 5/5 to increase ADL,t/f and mobility Other: Pt will imporve F.A.T. to G to increase efficiency with ADL Short Term Goals Days: 10 Mobility for ADL's: Pt will improve toilet t/f setup A with AE as needed Safety Awareness: Pt will demonstrate F safety awareness to decerase fall risk Dressing: Pt will perform UB/LB dressing setup A with AE as needed. Upper Ext. Strength/Use: Pt will increase BUE strength to 4/5 to increase ADL,t/f and mobility Other: Pt will imporve F.A.T. to F to increase efficiency with ADL - PATIENT GOALS Patient/Family Goals: tor return to PLOF Goals Discussed with Patient/Family: Yes Rehabilitation Potential: good Justification for Potential: G following commands, comorbidities - PLAN Suggested Treatment Plan: Therapeutic Activity, Self Care Training, Neuro Re- education, Therapeutic Ex with HEP, Patient Education, Family Education - FREQUENCY AND DURATION OT: 5x a week x hospital stay Expected Continuation of Care at Discharge: Home, Home Health
[2018-11-25] MEDS: HumuLIN R SC PRN ×3 (13:20→21:18)
[2018-11-25] MEDS: AMBIEN PO SCH (21:13)
[2018-11-25] MEDS: CRESTOR TAB 10 MG PO SCH (21:14)
[2018-11-25] MEDS: SNACK - Diabetic Appropriate PO SCH (21:15)
[2018-11-26] MEDS: ULTRAM PO PRN (02:08)
[2018-11-26] MEDS: MYSOLINE PO SCH ×3 (05:43→21:07)
[2018-11-26] MEDS: SYNTHROID 50 mcg TAB PO SCH (06:30)
[2018-11-26] MEDS: VITAMIN D3 PO SCH (08:39)
[2018-11-26] MEDS: BENICAR TAB 40 MG PO SCH ×2 (08:39→21:06)
[2018-11-26] MEDS: ASPIRIN 81 MG CHEWTAB PO SCH (08:40)
[2018-11-26] MEDS: PROTONIX TAB 40 MG PO SCH ×2 (08:40→21:08)
[2018-11-26] MEDS: TRICOR TAB 145 MG PO SCH (08:40)
[2018-11-26] MEDS: HEMOCYTE-PLUS PO SCH (08:40)
[2018-11-26] MEDS: LOVENOX INJ 30 MG SYR SC SCH ×2 (08:41→21:08)
[2018-11-26] MEDS: LANTUS SC SCH (08:46)
[2018-11-26] MEDS: NORCO 10/325 TAB PO PRN ×2 (08:54→21:09)
[2018-11-26] MEDS: CYMBALTA PO SCH (10:34)
[2018-11-26] MEDS: HumuLIN R SC PRN ×3 (11:58→21:11)
[2018-11-26] MEDS: SNACK - Diabetic Appropriate PO SCH (19:37)
[2018-11-26] MEDS: CRESTOR TAB 10 MG PO SCH (21:05)
[2018-11-26] MEDS: AMBIEN PO SCH (21:07)
[2018-11-26] MEDS: XANAX PO PRN (21:07)
[2018-11-27] MEDS: ULTRAM PO PRN ×2 (02:39→21:54)
[2018-11-27] MEDS: MYSOLINE PO SCH ×4 (06:02→21:56)
[2018-11-27] MEDS: HumuLIN R SC PRN ×3 (06:03→21:57)
[2018-11-27] MEDS: SYNTHROID 50 mcg TAB PO SCH (06:03)
[2018-11-27] MEDS: NORCO 10/325 TAB PO PRN ×2 (06:03→14:41)
[2018-11-27] MEDS: LOVENOX INJ 30 MG SYR SC SCH ×2 (09:33→21:52)
[2018-11-27] MEDS: BENICAR TAB 40 MG PO SCH ×2 (09:34→21:52)
[2018-11-27] MEDS: VITAMIN D3 PO SCH (09:34)
[2018-11-27] MEDS: TRICOR TAB 145 MG PO SCH (09:34)
[2018-11-27] MEDS: ASPIRIN 81 MG CHEWTAB PO SCH (09:35)
[2018-11-27] MEDS: HEMOCYTE-PLUS PO SCH (09:35)
[2018-11-27] MEDS: PROTONIX TAB 40 MG PO SCH ×2 (09:35→21:58)
[2018-11-27] MEDS: LANTUS SC SCH (09:42)
[2018-11-27] MEDS: CYMBALTA PO SCH (09:42)
[2018-11-27] MEDS: SNACK - Diabetic Appropriate PO SCH (20:00)
[2018-11-27] MEDS: AMBIEN PO SCH (21:51)
[2018-11-27] MEDS: CRESTOR TAB 10 MG PO SCH (21:53)
[2018-11-27] MEDS: XANAX PO PRN (21:55)
[2018-11-28 05:08] LABS: BASOPHILS % (AUTO) 0.8 % (0.2-1.0); EOSINOPHILS # (AUTO) 0.2 x10^3/uL (0.0-0.2); EOSINOPHILS % (AUTO) 2.7 % (0.9-2.9); HEMATOCRIT 33.7 % (36.0-47.0); HEMOGLOBIN 11.1 g/dL (12.0-16.0); LYMPHOCYTES # (AUTO) 2.6 X10^3/uL (1.3-2.9); LYMPHOCYTES % (AUTO) 46.7 % (21.0-51.0); MEAN CORPUSCULAR HEMOGLOBIN 28.3 pg (27.0-34.0); MEAN CORPUSCULAR VOLUME 85.9 fL (80.0-100.0); MEAN PLATELET VOLUME 7.6 fL (7.4-11.0); MONOCYTES # (AUTO) 0.5 x10^3/uL (0.3-0.8); MONOCYTES % (AUTO) 8.5 % (0.0-13.0); NEUTROPHILS # (AUTO) 2.3 x10^3/uL (2.2-4.8); NEUTROPHILS % (AUTO) 41.3 % (42.0-75.0); PLATELET COUNT 225 X10^3/uL (150.0-450.0); RED BLOOD COUNT 3.92 X10^6/uL (3.5-5.4); RED CELL DISTRIBUTION WIDTH 15.3 % (11.6-16.5); WHITE BLOOD COUNT 5.6 X10^3/uL (3.6-10.0)
[2018-11-28] MEDS: NORCO 10/325 TAB PO PRN ×2 (05:10→21:19)
[2018-11-28 05:15] LABS: ALANINE AMINOTRANSFERASE 25 Units/L (12-78); ALKALINE PHOSPHATASE 74 Units/L (46-116); ASPARTATE AMINO TRANSFERASE 19 Units/L (15-37); BLOOD UREA NITROGEN 15 mg/dL (7-18); CALCIUM 9.4 mg/dL (8.5-10.1); CARBON DIOXIDE 27.7 mmol/L (21-32); CHLORIDE 104 mmol/L (98-107); COR CA(FOR HYPOALB) 10.2 mg/dL (8.5-10.1); COR NA(FOR HYPERGLY) 144 mmol/L (136-145); CREATININE 0.78 mg/dL (0.55-1.02); SODIUM 142 mmol/L (136-145); TOTAL PROTEIN 6.4 g/dL (6.4-8.2); eGFR NON BLACK RACES > 60 (>60)
[2018-11-28] MEDS: MYSOLINE PO SCH ×4 (06:02→21:17)
[2018-11-28] MEDS: SYNTHROID 50 mcg TAB PO SCH (06:02)
[2018-11-28] MEDS: BENICAR TAB 40 MG PO SCH ×2 (09:28→21:16)
[2018-11-28] MEDS: HEMOCYTE-PLUS PO SCH (09:28)
[2018-11-28] MEDS: PROTONIX TAB 40 MG PO SCH ×2 (09:28→21:17)
[2018-11-28] MEDS: TRICOR TAB 145 MG PO SCH (09:28)
[2018-11-28] MEDS: LANTUS SC SCH (09:29)
[2018-11-28] MEDS: VITAMIN D3 PO SCH (09:29)
[2018-11-28] MEDS: ASPIRIN 81 MG CHEWTAB PO SCH (09:29)
[2018-11-28] MEDS: CYMBALTA PO SCH (09:29)
[2018-11-28] MEDS: LOVENOX INJ 30 MG SYR SC SCH ×2 (09:29→21:16)
[2018-11-28] MEDS: HumuLIN R SC PRN ×3 (12:25→21:18)
[2018-11-28] MEDS: SNACK - Diabetic Appropriate PO SCH (20:30)
[2018-11-28] MEDS: XANAX PO PRN (21:16)
[2018-11-28] MEDS: AMBIEN PO SCH (21:17)
[2018-11-28] MEDS: CRESTOR TAB 10 MG PO SCH (21:17)
[2018-11-29] MEDS: ULTRAM PO PRN (06:15)
[2018-11-29] MEDS: HumuLIN R SC PRN ×3 (06:18→21:38)
[2018-11-29] MEDS: MYSOLINE PO SCH ×3 (06:18→21:35)
[2018-11-29] MEDS: SYNTHROID 50 mcg TAB PO SCH (06:18)
[2018-11-29] MEDS: ASPIRIN 81 MG CHEWTAB PO SCH (09:30)
[2018-11-29] MEDS: LANTUS SC SCH (09:30)
[2018-11-29] MEDS: PROTONIX TAB 40 MG PO SCH ×2 (09:30→21:32)
[2018-11-29] MEDS: TRICOR TAB 145 MG PO SCH (09:30)
[2018-11-29] MEDS: VITAMIN D3 PO SCH (09:30)
[2018-11-29] MEDS: HEMOCYTE-PLUS PO SCH (09:30)
[2018-11-29] MEDS: BENICAR TAB 40 MG PO SCH ×2 (09:30→21:34)
[2018-11-29] MEDS: LOVENOX INJ 30 MG SYR SC SCH ×2 (09:31→21:38)
[2018-11-29] MEDS: CYMBALTA PO SCH (09:38)
--- NOTE | 2018-11-29 19:18 | PCM.PROG ---
Progress Note - Progress Note for Day of Date of Exam: 11/27/18 - Subjective Subjective: WAS ADMITTED FOR HYPERGLYCEMIA AND RENAL FAILURE. SHE WAS CHANGED TO SWINGBED STATUS ON 11/24/18 FOR PHYSICAL THERAPY DUE TO UNSTEADY GAIT AND DECLINE IN ADLs. TODAY, SHE IS ALERT AND ORIENTED, LYING IN BED ON MORNING ROUNDS. SHE CONTINUES TO REPORT GENERALIZED WEAKNESS AND PAIN TODAY. STAFF REPORTS THAT SHE CONTINUES TO BE UNSTEADY ON AMBULATION, BUT IS COOPERATING WELL WITH PHYSICAL THERAPY. HER BLOOD GLUCOSE LEVELS HAVE REMAINED ELEVATED. ON EXAMINATION, HEART IS REGULAR IN RATE AND RHYTHM. BILATERAL LUNGS ARE NOTED WITH DIMINISHED LUNG SOUNDS THROUGHOUT. ABDOMEN IS ROUND, SOFT, AND NON-TENDER WITH NORMAL BOWEL SOUNDS NOTED IN ALL QUADRANTS. HER VITALS THIS MORNING ARE 98. 0-62-20-94%-156/69. WE WILL CONTINUE WITH PHYSICAL THERAPY AND CURRENT PLAN OF CARE TODAY. OTHERWISE, WE PLAN TO FOLLOW UP WITH AM LABS AND CONTINUE TO MONITOR. - Past Medical Family Social History Past Med/Fam/Surg Hx: No changes since H&P Allergies: Allergies Penicillins Allergy (Verified 07/20/18 20:37) - Review of Systems ROS: No change since H&P - Vital Signs and I&O's Vital Signs: Temperature 98.4 F Pulse Rate [Left Brachial] 83 Respiratory Rate 20 Blood Pressure [Right Arm] 178/84 Blood Pressure [Left Arm] 169/86 Blood Pressure 152/72 O2 Sat by Pulse Oximetry 94 Intake and Output: Intake & Output 11/27/18 11/28/18 11/29/18 11/30/18 11:59 11:59 11:59 11:59 Intake Total 2360 / 2360 2120 / 2120 2480 / 2480 1080 / 1080 Balance 2360 / 2360 0 / 2120 2480 / 2480 1080 / 1080 - Physical Exam Oriented: Normal Eyes: Normal Ear: Normal Nose: Normal Throat: Normal Respiratory: Generalized, Diminished Cardiovascular: Normal. negative: S3, S4, Murmur : Normal Auscultation: Bowel Sounds: Normal Palpation: Normal Tenderness: Normal Skin: Normal Musculoskeletal: Normal Psychiatric: Normal Mood Description: Calm Affect: Normal Speech Pattern: Clear, Appropriate - Laboratory and Diagnostics Result Diagrams: 11/28/18 04:38 11/28/18 04:38 Labs: Laboratory WBC 5.6 X10^3/uL (3.6-10.0) 11/28/18 04:38 RBC 3.92 X10^6/uL (3.5-5.4) 11/28/18 04:38 Hgb 11.1 g/dL (12.0-16.0) L 11/28/18 04:38 Hct 33.7 % (36.0-47.0) L 11/28/18 04:38 MCV 85.9 fL (80.0-100.0) 11/28/18 04:38 MCH 28.3 pg (27.0-34.0) 11/28/18 04:38 MCHC 33.0 g/dL (33.0-35.0) 11/28/18 04:38 RDW 15.3 % (11.6-16.5) 11/28/18 04:38 Plt Count 225 X10^3/uL (150.0-450.0) 11/28/18 04:38 MPV 7.6 fL (7.4-11.0) 11/28/18 04:38 Neut % (Auto) 41.3 % (42.0-75.0) L 11/28/18 04:38 Lymph % (Auto) 46.7 % (21.0-51.0) 11/28/18 04:38 [place] % (Auto) 8.5 % (0.0-13.0) 11/28/18 04:38 Eos % (Auto) 2.7 % (0.9-2.9) 11/28/18 04:38 Baso % (Auto) 0.8 % (0.2-1.0) 11/28/18 04:38 Neut # (Auto) 2.3 x10^3/uL (2.2-4.8) 11/28/18 04:38 Lymph # (Auto) 2.6 X10^3/uL (1.3-2.9) 11/28/18 04:38 [place] # (Auto) 0.5 x10^3/uL (0.3-0.8) 11/28/18 04:38 Eos # (Auto) 0.2 x10^3/uL (0.0-0.2) 11/28/18 04:38 Baso # (Auto) 0.0 X10^3/uL (0.0-0.1) 11/28/18 04:38 Absolute Nucleated RBC 0.1 /100WBC 11/28/18 04:38 Sodium 142 mmol/L (136-145) 11/28/18 04:38 Corrected Sodium 144 mmol/L (136-145) 11/28/18 04:38 Potassium 3.6 mmol/L (3.5-5.1) 11/28/18 04:38 Chloride 104 mmol/L (98-107) 11/28/18 04:38 Carbon Dioxide 27.7 mmol/L (21-32) 11/28/18 04:38 BUN 15 mg/dL (7-18) 11/28/18 04:38 Creatinine 0.78 mg/dL (0.55-1.02) 11/28/18 04:38 Est GFR (MDRD) Af Amer > 60 (>60) 11/28/18 04:38 Est GFR (MDRD) Non-Af > 60 (>60) 11/28/18 04:38 Glucose 178 mg/dL (65-99) H 11/28/18 04:38 POC Glucose (mg/dL) 295 mg/dL (65-99) H 11/29/18 16:53 Calcium 9.4 mg/dL (8.5-10.1) 11/28/18 04:38 Corrected Calcium 10.2 mg/dL (8.5-10.1) H 11/28/18 04:38 Total Bilirubin 0.20 mg/dL (0.2-1.0) 11/28/18 04:38 AST 19 Units/L (15-37) 11/28/18 04:38 ALT 25 Units/L (12-78) 11/28/18 04:38 Alkaline Phosphatase 74 Units/L (46-116) 11/28/18 04:38 Total Protein 6.4 g/dL (6.4-8.2) 11/28/18 04:38 Albumin 3.0 g/dL (3.4-5.0) L 11/28/18 04:38 Globulin 3.4 g/dL (2.5-4.5) 11/28/18 04:38 Albumin/Globulin Ratio 0.9 Ratio (1.1-2.1) L 11/28/18 04:38
[2018-11-29] MEDS: CRESTOR TAB 10 MG PO SCH (21:32)
[2018-11-29] MEDS: AMBIEN PO SCH (21:33)
[2018-11-29] MEDS: NORCO 10/325 TAB PO PRN (21:35)
[2018-11-29] MEDS: SNACK - Diabetic Appropriate PO SCH (21:37)
[2018-11-30] MEDS: ULTRAM PO PRN (03:33)
[2018-11-30] MEDS: MYSOLINE PO SCH ×3 (06:17→21:01)
[2018-11-30] MEDS: SYNTHROID 50 mcg TAB PO SCH (06:17)
[2018-11-30] MEDS: HumuLIN R SC PRN ×3 (06:18→21:05)
[2018-11-30] MEDS: LANTUS SC SCH (10:44)
[2018-11-30] MEDS: VITAMIN D3 PO SCH (10:45)
[2018-11-30] MEDS: ASPIRIN 81 MG CHEWTAB PO SCH (10:45)
[2018-11-30] MEDS: HEMOCYTE-PLUS PO SCH (10:45)
[2018-11-30] MEDS: BENICAR TAB 40 MG PO SCH ×2 (10:45→21:02)
[2018-11-30] MEDS: TRICOR TAB 145 MG PO SCH (10:45)
[2018-11-30] MEDS: PROTONIX TAB 40 MG PO SCH ×2 (10:45→21:02)
[2018-11-30] MEDS: LOVENOX INJ 30 MG SYR SC SCH ×2 (10:46→21:03)
[2018-11-30] MEDS: CYMBALTA PO SCH (10:51)
[2018-11-30] MEDS: AMBIEN PO SCH (21:01)
[2018-11-30] MEDS: CRESTOR TAB 10 MG PO SCH (21:01)
[2018-11-30] MEDS: NORCO 10/325 TAB PO PRN (21:02)
[2018-11-30] MEDS: SNACK - Diabetic Appropriate PO SCH (21:05)
[2018-12-01 05:29] LABS: BASOPHILS # (AUTO) 0.1 X10^3/uL (0.0-0.1); BASOPHILS % (AUTO) 1.2 % (0.2-1.0); EOSINOPHILS # (AUTO) 0.2 x10^3/uL (0.0-0.2); HEMATOCRIT 35.6 % (36.0-47.0); HEMOGLOBIN 11.7 g/dL (12.0-16.0); LYMPHOCYTES # (AUTO) 2.2 X10^3/uL (1.3-2.9); LYMPHOCYTES % (AUTO) 46.2 % (21.0-51.0); MEAN CORPUSCULAR HEMOGLOBIN 28.3 pg (27.0-34.0); MEAN CORPUSCULAR HGB CONC 32.8 g/dL (33.0-35.0); MEAN CORPUSCULAR VOLUME 86.3 fL (80.0-100.0); MEAN PLATELET VOLUME 7.5 fL (7.4-11.0); MONOCYTES # (AUTO) 0.5 x10^3/uL (0.3-0.8); MONOCYTES % (AUTO) 9.5 % (0.0-13.0); NEUTROPHILS # (AUTO) 1.9 x10^3/uL (2.2-4.8); NEUTROPHILS % (AUTO) 39.1 % (42.0-75.0); PLATELET COUNT 221 X10^3/uL (150.0-450.0); RED BLOOD COUNT 4.12 X10^6/uL (3.5-5.4); RED CELL DISTRIBUTION WIDTH 15.9 % (11.6-16.5); WHITE BLOOD COUNT 4.8 X10^3/uL (3.6-10.0)
[2018-12-01] MEDS: MYSOLINE PO SCH ×3 (05:36→22:00)
[2018-12-01 05:45] LABS: ALANINE AMINOTRANSFERASE 22 Units/L (12-78); ALBUMIN 3.3 g/dL (3.4-5.0); ALKALINE PHOSPHATASE 81 Units/L (46-116); ASPARTATE AMINO TRANSFERASE 17 Units/L (15-37); BLOOD UREA NITROGEN 17 mg/dL (7-18); CALCIUM 9.4 mg/dL (8.5-10.1); CARBON DIOXIDE 25.8 mmol/L (21-32); CHLORIDE 103 mmol/L (98-107); COR NA(FOR HYPERGLY) 142 mmol/L (136-145); CREATININE 0.78 mg/dL (0.55-1.02); SODIUM 139 mmol/L (136-145); TOTAL PROTEIN 6.7 g/dL (6.4-8.2); eGFR NON BLACK RACES > 60 (>60)
[2018-12-01] MEDS: SYNTHROID 50 mcg TAB PO SCH (06:07)
[2018-12-01] MEDS: ASPIRIN 81 MG CHEWTAB PO SCH (08:34)
[2018-12-01] MEDS: TRICOR TAB 145 MG PO SCH (08:34)
[2018-12-01] MEDS: PROTONIX TAB 40 MG PO SCH ×2 (08:34→20:57)
[2018-12-01] MEDS: VITAMIN D3 PO SCH (08:34)
[2018-12-01] MEDS: ULTRAM PO PRN ×2 (08:34→16:53)
[2018-12-01] MEDS: CYMBALTA PO SCH (08:35)
[2018-12-01] MEDS: HEMOCYTE-PLUS PO SCH (08:35)
[2018-12-01] MEDS: BENICAR TAB 40 MG PO SCH ×2 (08:35→20:56)
[2018-12-01] MEDS: LOVENOX INJ 30 MG SYR SC SCH ×2 (08:36→20:53)
[2018-12-01] MEDS: LANTUS SC SCH (08:36)
[2018-12-01] MEDS: CRESTOR TAB 10 MG PO SCH (20:49)
[2018-12-01] MEDS: NORCO 10/325 TAB PO PRN (20:49)
[2018-12-01] MEDS: AMBIEN PO SCH (20:51)
[2018-12-01] MEDS: SNACK - Diabetic Appropriate PO SCH (20:52)
[2018-12-01] MEDS: HumuLIN R SC PRN (22:00)
[2018-12-02] MEDS: ULTRAM PO PRN ×3 (05:30→16:21)
[2018-12-02] MEDS: SYNTHROID 50 mcg TAB PO SCH (06:12)
[2018-12-02] MEDS: MYSOLINE PO SCH ×3 (06:12→21:53)
[2018-12-02] MEDS: HumuLIN R SC PRN ×3 (06:14→21:53)
[2018-12-02] MEDS: LOVENOX INJ 30 MG SYR SC SCH ×2 (08:29→20:56)
[2018-12-02] MEDS: LANTUS SC SCH (08:29)
[2018-12-02] MEDS: VITAMIN D3 PO SCH (08:30)
[2018-12-02] MEDS: ASPIRIN 81 MG CHEWTAB PO SCH (08:30)
[2018-12-02] MEDS: HEMOCYTE-PLUS PO SCH (08:31)
[2018-12-02] MEDS: BENICAR TAB 40 MG PO SCH ×2 (08:31→20:57)
[2018-12-02] MEDS: PROTONIX TAB 40 MG PO SCH ×2 (08:32→20:57)
[2018-12-02] MEDS: NORCO 10/325 TAB PO PRN ×2 (08:32→20:58)
[2018-12-02] MEDS: TRICOR TAB 145 MG PO SCH (08:35)
[2018-12-02] MEDS: CYMBALTA PO SCH (08:35)
--- NOTE | 2018-12-02 17:05 | PCM.PROG ---
Progress Note - Progress Note for Day of Date of Exam: 12/02/18 - Subjective Subjective: WAS ADMITTED FOR HYPERGLYCEMIA AND RENAL FAILURE. SHE WAS CHANGED TO SWINGBED STATUS ON 11/24/18 FOR PHYSICAL THERAPY DUE TO UNSTEADY GAIT AND DECLINE IN ADLs. TODAY, SHE IS ALERT AND ORIENTED, LYING IN BED ON MORNING ROUNDS. SHE CONTINUES TO REPORT GENERALIZED WEAKNESS AND PAIN TODAY. STAFF REPORTS THAT SHE CONTINUES TO BE UNSTEADY ON AMBULATION, BUT IS COOPERATING WELL WITH PHYSICAL THERAPY. - Past Medical Family Social History Past Med/Fam/Surg Hx: No changes since H&P Allergies: Allergies Penicillins Allergy (Verified 07/20/18 20:37) - Review of Systems ROS: No change since H&P - Vital Signs and I&O's Vital Signs: Temperature 97.9 F Pulse Rate [Right Brachial] 74 Pulse Rate [Left Brachial] 75 Respiratory Rate 20 Blood Pressure [Right Arm] 145/67 Blood Pressure [Left Arm] 169/84 Blood Pressure 152/72 O2 Sat by Pulse Oximetry 96 Intake and Output: Intake & Output 11/30/18 12/01/18 12/02/18 12/03/18 11:59 11:59 11:59 11:59 Intake Total 1570 / 1570 2340 / 2340 1300 / 1300 600 / 600 Balance 1570 / 1570 2340 / 2340 1300 / 1300 600 / 600 - Physical Exam Oriented: Normal Eyes: Normal Ear: Normal Nose: Normal Throat: Normal Respiratory: Generalized, Diminished Cardiovascular: Normal. negative: S3, S4, Murmur : Normal Auscultation: Bowel Sounds: Normal Tenderness: Normal Skin: Normal Musculoskeletal: Normal Psychiatric: Normal Mood Description: Calm Affect: Normal Speech Pattern: Clear, Appropriate - Laboratory and Diagnostics Result Diagrams: 12/01/18 05:12 12/01/18 05:12 Labs: Laboratory WBC 4.8 X10^3/uL (3.6-10.0) 12/01/18 05:12 RBC 4.12 X10^6/uL (3.5-5.4) 12/01/18 05:12 Hgb 11.7 g/dL (12.0-16.0) L 12/01/18 05:12 Hct 35.6 % (36.0-47.0) L 12/01/18 05:12 MCV 86.3 fL (80.0-100.0) 12/01/18 05:12 MCH 28.3 pg (27.0-34.0) 12/01/18 05:12 MCHC 32.8 g/dL (33.0-35.0) L 12/01/18 05:12 RDW 15.9 % (11.6-16.5) 12/01/18 05:12 Plt Count 221 X10^3/uL (150.0-450.0) 12/01/18 05:12 MPV 7.5 fL (7.4-11.0) 12/01/18 05:12 Neut % (Auto) 39.1 % (42.0-75.0) L 12/01/18 05:12 Lymph % (Auto) 46.2 % (21.0-51.0) 12/01/18 05:12 [place] % (Auto) 9.5 % (0.0-13.0) 12/01/18 05:12 Eos % (Auto) 4.0 % (0.9-2.9) H 12/01/18 05:12 Baso % (Auto) 1.2 % (0.2-1.0) H 12/01/18 05:12 Neut # (Auto) 1.9 x10^3/uL (2.2-4.8) L 12/01/18 05:12 Lymph # (Auto) 2.2 X10^3/uL (1.3-2.9) 12/01/18 05:12 [place] # (Auto) 0.5 x10^3/uL (0.3-0.8) 12/01/18 05:12 Eos # (Auto) 0.2 x10^3/uL (0.0-0.2) 12/01/18 05:12 Baso # (Auto) 0.1 X10^3/uL (0.0-0.1) 12/01/18 05:12 Absolute Nucleated RBC 0.2 /100WBC 12/01/18 05:12 Sodium 139 mmol/L (136-145) 12/01/18 05:12 Corrected Sodium 142 mmol/L (136-145) 12/01/18 05:12 Potassium 3.8 mmol/L (3.5-5.1) 12/01/18 05:12 Chloride 103 mmol/L (98-107) 12/01/18 05:12 Carbon Dioxide 25.8 mmol/L (21-32) 12/01/18 05:12 BUN 17 mg/dL (7-18) 12/01/18 05:12 Creatinine 0.78 mg/dL (0.55-1.02) 12/01/18 05:12 Est GFR (MDRD) Af Amer > 60 (>60) 12/01/18 05:12 Est GFR (MDRD) Non-Af > 60 (>60) 12/01/18 05:12 Glucose 206 mg/dL (65-99) H 12/01/18 05:12 POC Glucose (mg/dL) 219 mg/dL (65-99) H 12/02/18 16:20 Calcium 9.4 mg/dL (8.5-10.1) 12/01/18 05:12 Corrected Calcium 10.0 mg/dL (8.5-10.1) 12/01/18 05:12 Total Bilirubin 0.30 mg/dL (0.2-1.0) 12/01/18 05:12 AST 17 Units/L (15-37) 12/01/18 05:12 ALT 22 Units/L (12-78) 12/01/18 05:12 Alkaline Phosphatase 81 Units/L (46-116) 12/01/18 05:12 Total Protein 6.7 g/dL (6.4-8.2) 12/01/18 05:12 Albumin 3.3 g/dL (3.4-5.0) L 12/01/18 05:12 Globulin 3.4 g/dL (2.5-4.5) 12/01/18 05:12 Albumin/Globulin Ratio 1.0 Ratio (1.1-2.1) L 12/01/18 05:12 - Plan (1) Weakness Status: Acute Plan: REHAB THERAPY, ROUTINE LABS. CONTINUE CURRENT MEDICATION REGIMEN
[2018-12-02] MEDS: XANAX PO PRN (17:36)
[2018-12-02] MEDS: AMBIEN PO SCH (20:57)
[2018-12-02] MEDS: CRESTOR TAB 10 MG PO SCH (20:58)
[2018-12-02] MEDS: SNACK - Diabetic Appropriate PO SCH (20:59)
[2018-12-03] MEDS: NORCO 10/325 TAB PO PRN (04:30)
[2018-12-03] MEDS: SYNTHROID 50 mcg TAB PO SCH (06:17)
[2018-12-03] MEDS: MYSOLINE PO SCH (06:17)
[2018-12-03] MEDS: HumuLIN R SC PRN (06:17)
[2018-12-03] MEDS: HEMOCYTE-PLUS PO SCH (09:10)
[2018-12-03] MEDS: VITAMIN D3 PO SCH (09:10)
[2018-12-03] MEDS: ASPIRIN 81 MG CHEWTAB PO SCH (09:10)
[2018-12-03] MEDS: TRICOR TAB 145 MG PO SCH (09:10)
[2018-12-03] MEDS: PROTONIX TAB 40 MG PO SCH (09:10)
[2018-12-03] MEDS: BENICAR TAB 40 MG PO SCH (09:10)
[2018-12-03] MEDS: LANTUS SC SCH (09:11)
[2018-12-03] MEDS: LOVENOX INJ 30 MG SYR SC SCH (09:11)
[2018-12-03] MEDS: CYMBALTA PO SCH (09:21)
[2018-12-03 09:54] VITALS: BP 129/75
[2018-12-03] MEDS: ULTRAM PO PRN (11:04)
== END 2018-12-03 13:00 | disposition home health service (06) | DRG 949 ==
LOC: MED/SURG 13:00
PROVIDERS: ADMIT Internal Medicine; ATTEND Internal Medicine
DX: R13.11 Dysphagia, oral phase; R53.1 Weakness; R26.89 Other abnormalities of gait and mobility; Z51.89 Encounter for other specified aftercare; I10 Essential (primary) hypertension; E87.1 Hypo-osmolality and hyponatremia; N17.8 Other acute kidney failure; R41.82 Altered mental status, unspecified; R63.0 Anorexia; E11.65 Type 2 diabetes mellitus with hyperglycemia
CPT/HCPCS: 36415; 80053; 85025; 92610; 97110; 97112; 97116; 97162; 97166; 97530; 97535; J1650; J1815

== ENCOUNTER 2019-10-25 21:01 | Inpatient (IN) ==
--- NOTE | 2019-10-25 21:16 | DR.GENAD ---
HPI - Complaint/Symptoms Chief Complaint Doctors Comments: Patient complain of right Upper quadrant pain x 1 week and feeling bad tonight. Glucose was read as high at home. No fever, no vomiting. Answers questions appropriately in Er. - COVID-19 Coronavirus risk:travel/contact w/high risk person: No Has patient experienced Coronavirus symptoms: No - Source History Provided: Patient - Mode of Arrival Mode of Arrival: Stretcher - Timing Came on: Gradually - Duration Duration: Constant How lon Duration: Weeks - Location Location: RUQ - Severity Severity: Mild - Modifying Factors Worsens:: unknown - Associated Signs and Symptoms Associated Signs and Symptoms: none PMH - PMH Past Medical History: Diabetes - Social History Does patient currently use any type of tobacco product: No Have you used tobacco products in the last 12 months: No Type of Tobacco Use: None ROS - Review of Systems Constitutional: Malaise Eyes: No Symptoms Reported ENTM: No Symptoms Reported Respiratoy: No Symptoms Reported Cardiovascular: No Symptoms Reported Gastrointestinal/Abdominal: Abdominal Pain (RUQ) Genitourinary: No Symptoms Reported Neurological: No Symptoms Reported Musculoskeletal: No Symptoms Reported Integumentary: No Symptoms Reported Hematologic/Lymphatic: No Symptoms Reported Endocrine: No Symptoms Reported Psychiatric: No Symptoms Reported All Other Systems: Reviewed and Negative PE - General Limitations: No Limitations General Appearance: Alert, In No Apparent Distress - Head Head Exam: Normal Inspection - Eyes Eye exam: Normal Appearance, EOMI - ENT ENT Exam: Normal Exam, Normal Oropharynx External Ear Exam: Normal External Inspection Nose Exam: Normal Nose Exam Mouth Exam: Normal Inspection Throat Exam: Normal Inspection - Neck Neck Exam: Normal Inspection, Full ROM, Trachea Midline - Chest Chest Inspection: Normal Inspection - Respiratory Respiratory Exam: Normal Lung Sounds Bilat Respiratory Exam: Bilateral Clear to Auscultation - Cardiovascular Cardiovascular Exam: Regular Rate - Abdominal Exam Abdominal Exam: Normal Inspection, Normal Bowel Sounds, Soft, Tenderness (RUQ). negative: Distention, Guarding Abdominal Tenderness: RUQ (mild) - Back Back Exam: Normal Inspection - Neurologic Neurological Exam: Alert, Oriented X3, CN II-XII Intact - Psychiatric Psychiatric Exam: Normal Mood - Skin Skin Exam: Intact, Normal Color - Vital Signs Vitals: Temperature 98.2 F Pulse Rate [Left] 89 Pulse Rate 90 Respiratory Rate 20 Blood Pressure [Right Arm] 128/64 Blood Pressure 132/62 O2 Sat by Pulse Oximetry 100 ROR - Labs Reviewed Result Diagrams: 10/25/19 21:45 10/25/19 21:45 - XRAY XRAY Interpreted by: Radiologist - Labs Reviewed Laboratory: WBC 9.1 X10^3/uL (3.6-10.0) 10/25/19 21:45 RBC 3.98 X10^6/uL (3.5-5.4) 10/25/19 21:45 Hgb 10.4 g/dL (12.0-16.0) L 10/25/19 21:45 Hct 32.7 % (36.0-47.0) L 10/25/19 21:45 MCV 82.1 fL (80.0-100.0) 10/25/19 21:45 MCH 26.1 pg (27.0-34.0) L 10/25/19 21:45 MCHC 31.7 g/dL (33.0-35.0) L 10/25/19 21:45 RDW 16.5 % (11.6-16.5) 10/25/19 21:45 Plt Count 456 X10^3/uL (150.0-450.0) H 10/25/19 21:45 MPV 7.8 fL (7.4-11.0) 10/25/19 21:45 Neut % (Auto) 64.5 % (42.0-75.0) 10/25/19 21:45 Lymph % (Auto) 26.5 % (21.0-51.0) 10/25/19 21:45 [place] % (Auto) 7.0 % (0.0-13.0) 10/25/19 21:45 Eos % (Auto) 1.0 % (0.9-2.9) 10/25/19 21:45 Baso % (Auto) 1.0 % (0.2-1.0) 10/25/19 21:45 Neut # (Auto) 5.9 x10^3/uL (2.2-4.8) H 10/25/19 21:45 Lymph # (Auto) 2.4 X10^3/uL (1.3-2.9) 10/25/19 21:45 [place] # (Auto) 0.6 x10^3/uL (0.3-0.8) 10/25/19 21:45 Eos # (Auto) 0.1 x10^3/uL (0.0-0.2) 10/25/19 21:45 Baso # (Auto) 0.1 X10^3/uL (0.0-0.1) 10/25/19 21:45 Absolute Nucleated RBC 0.1 /100WBC 10/25/19 21:45 Sodium 131 mmol/L (136-145) L 10/25/19 21:45 Corrected Sodium 144 mmol/L (136-145) 10/25/19 21:45 Potassium 4.0 mmol/L (3.5-5.1) 10/25/19 21:45 Chloride 92 mmol/L (98-107) L 10/25/19 21:45 Carbon Dioxide 27.4 mmol/L (21-32) 10/25/19 21:45 BUN 47 mg/dL (7-18) H 10/25/19 21:45 Creatinine 1.85 mg/dL (0.55-1.02) H 10/25/19 21:45 Est GFR (MDRD) Af Amer 33 (>60) L 10/25/19 21:45 Est GFR (MDRD) Non-Af 28 (>60) L 10/25/19 21:45 Glucose 624 mg/dL (65-99) H* 10/25/19 21:45 POC Glucose (mg/dL) 480 mg/dL (65-99) H 10/25/19 22:28 Calcium 9.1 mg/dL (8.5-10.1) 10/25/19 21:45 Corrected Calcium TNP 10/25/19 21:45 Total Bilirubin 0.20 mg/dL (0.2-1.0) 10/25/19 21:45 AST 14 Units/L (15-37) L 10/25/19 21:45 ALT 17 Units/L (12-78) 10/25/19 21:45 Alkaline Phosphatase 87 Units/L (46-116) 10/25/19 21:45 Total Protein 8.0 g/dL (6.4-8.2) 10/25/19 21:45 Albumin 3.7 g/dL (3.4-5.0) 10/25/19 21:45 Globulin 4.3 g/dL (2.5-4.5) 10/25/19 21:45 Albumin/Globulin Ratio 0.9 Ratio (1.1-2.1) L 10/25/19 21:45 Specimen Type Clean catch urine 10/25/19 22:17 Urine Color Yellow (YELLOW) 10/25/19 22:17 Urine Appearance Clear (CLEAR) 10/25/19 22:17 Urine pH 6.0 (5.0 - 8.0) 10/25/19 22:17 Ur Specific [place] 1.015 (1.000-1.030) 10/25/19 22:17 Urine Protein Negative (NEGATIVE) 10/25/19 22:17 Urine Glucose (UA) 4+ (NEGATIVE) 10/25/19 22:17 Urine Ketones Negative (NEGATIVE) 10/25/19 22:17 Urine Occult Blood Negative (NEGATIVE) 10/25/19 22:17 Urine Nitrite Negative (NEGATIVE) 10/25/19 22:17 Urine Bilirubin Negative (NEGATIVE) 10/25/19 22:17 Urine Urobilinogen Normal (NORMAL) 10/25/19 22:17 Ur Leukocyte Esterase Negative (NEGATIVE) 10/25/19 22:17 - XRAY Xray Findings: aas: IMPRESSION 1. [No acute cardiopulmonary disease.] 2. [No evidence for acute abdominal pathology identified.] (SANA DYER) Opioid - Opioid Risk Tool Total: 0 Total Score Risk Category: Low Risk - Diagnosis Discharge Problem: Uncontrolled diabetes mellitus Qualifiers: Diabetes mellitus type: type 2 Glycemic state: with hyperglycemia Qualified Code(s): E11.65 - Type 2 diabetes mellitus with hyperglycemia - Discharge Plan Condition: Stable - Follow ups/Referrals Follow ups/Referrals: EDGARDO TRAMMELL [Primary Care Provider] - 3 days - Instructions
[2019-10-25] MEDS ORDERED: NS 1000 ML 1,000 ML ONE (21:33)
[2019-10-25] MEDS ORDERED: NS 500 ML IV 1,000 ML IV ONE (21:34)
[2019-10-25] MEDS ORDERED: MYXREDLIN 100 UNIT/100 ML BAG 100 UNIT/100 ML PLAST..BAG IV ONE (21:35)
[2019-10-25] MEDS ORDERED: HumuLIN R ONE ×2 (21:36→22:29)
[2019-10-25] MEDS ORDERED: HumuLIN R IV ONE ×2 (21:36→22:31)
--- NOTE | 2019-10-25 21:59 | RAD ---
HISTORYRight upper quadrant pain. CHF, DM, HTN. CHOLECYSTECTOMYSTUDYACUTE ABDOMEN SERIESCOMPARISONNone.FINDINGSThe trachea is midline. The cardiac silhouette is unremarkable. Median sternotomy wires are noted. [The lungs are clear of consolidation, significant infiltrate, effusion or pneumothorax.] The bony thorax is unremarkable.Flat plate and upright evaluation of the abdomen demonstrates a normal bowel gas pattern. There is no pneumoperitoneum. No pathological soft tissue mass or calcification is identified. The bony structures are grossly intact.IMPRESSION1. [No acute cardiopulmonary disease.]2. [No evidence for acute abdominal pathology identified.]Electronically signed by: RYLAN RITTER (October 25, 2019 21:58:13)
[2019-10-25 22:07] LABS: BASOPHILS # (AUTO) 0.1 X10^3/uL (0.0-0.1); EOSINOPHILS # (AUTO) 0.1 x10^3/uL (0.0-0.2); HEMATOCRIT 32.7 % (36.0-47.0); HEMOGLOBIN 10.4 g/dL (12.0-16.0); LYMPHOCYTES # (AUTO) 2.4 X10^3/uL (1.3-2.9); LYMPHOCYTES % (AUTO) 26.5 % (21.0-51.0); MEAN CORPUSCULAR HEMOGLOBIN 26.1 pg (27.0-34.0); MEAN CORPUSCULAR HGB CONC 31.7 g/dL (33.0-35.0); MEAN CORPUSCULAR VOLUME 82.1 fL (80.0-100.0); MEAN PLATELET VOLUME 7.8 fL (7.4-11.0); MONOCYTES # (AUTO) 0.6 x10^3/uL (0.3-0.8); NEUTROPHILS # (AUTO) 5.9 x10^3/uL (2.2-4.8); NEUTROPHILS % (AUTO) 64.5 % (42.0-75.0); PLATELET COUNT 456 X10^3/uL (150.0-450.0); RED BLOOD COUNT 3.98 X10^6/uL (3.5-5.4); RED CELL DISTRIBUTION WIDTH 16.5 % (11.6-16.5); WHITE BLOOD COUNT 9.1 X10^3/uL (3.6-10.0)
[2019-10-25 22:17] LABS: ALANINE AMINOTRANSFERASE 17 Units/L (12-78); ALBUMIN 3.7 g/dL (3.4-5.0); ALKALINE PHOSPHATASE 87 Units/L (46-116); ASPARTATE AMINO TRANSFERASE 14 Units/L (15-37); BLOOD UREA NITROGEN 47 mg/dL (7-18); CALCIUM 9.1 mg/dL (8.5-10.1); CARBON DIOXIDE 27.4 mmol/L (21-32); CHLORIDE 92 mmol/L (98-107); CREATININE 1.85 mg/dL (0.55-1.02); SODIUM 131 mmol/L (136-145); eGFR NON BLACK RACES 28 (>60)
[2019-10-25] MEDS ORDERED: TORADOL 60 MG VIAL IVP ONE (22:17)
[2019-10-25 22:19] LABS: COR NA(FOR HYPERGLY) 144 mmol/L (136-145)
[2019-10-25] MEDS ORDERED: TORADOL 30 MG VIAL ONE (22:20)
[2019-10-25 22:29] LABS: BILIRUBIN,URINE NEGATIVE (NEGATIVE); BLOOD/HEMOGLOBIN,URINE NEGATIVE (NEGATIVE); GLUCOSE, URINE 4+ (NEGATIVE); KETONES,URINE NEGATIVE (NEGATIVE); LEUKOCYTE ESTERASE ,URINE NEGATIVE (NEGATIVE); NITRITES,URINE NEGATIVE (NEGATIVE); PROTEIN,URINE NEGATIVE (NEGATIVE); UROBILINOGEN,URINE NORMAL (NORMAL)
[2019-10-25 22:32] LABS: APPEARANCE,URINE CLEAR (CLEAR); COLOR,URINE YELLOW (YELLOW)
[2019-10-26] MEDS: NS 1000 ML 1,000 ML IV SCH ×6 (00:23→22:40)
[2019-10-26 01:12] VITALS: BMI 22.8
[2019-10-26] MEDS ORDERED: NORCO 5/325 MG TAB ONE (05:52)
[2019-10-26] MEDS: NORCO 5/325 MG TAB PO PRN ×2 (05:55→12:08)
[2019-10-26 06:13] LABS: BASOPHILS # (AUTO) 0.1 X10^3/uL (0.0-0.1); BASOPHILS % (AUTO) 0.9 % (0.2-1.0); EOSINOPHILS # (AUTO) 0.2 x10^3/uL (0.0-0.2); EOSINOPHILS % (AUTO) 1.4 % (0.9-2.9); HEMATOCRIT 29.1 % (36.0-47.0); HEMOGLOBIN 9.3 g/dL (12.0-16.0); LYMPHOCYTES # (AUTO) 2.8 X10^3/uL (1.3-2.9); LYMPHOCYTES % (AUTO) 24.2 % (21.0-51.0); MEAN CORPUSCULAR HEMOGLOBIN 25.2 pg (27.0-34.0); MEAN CORPUSCULAR HGB CONC 31.9 g/dL (33.0-35.0); MEAN PLATELET VOLUME 7.2 fL (7.4-11.0); MONOCYTES # (AUTO) 0.7 x10^3/uL (0.3-0.8); MONOCYTES % (AUTO) 5.7 % (0.0-13.0); NEUTROPHILS # (AUTO) 7.8 x10^3/uL (2.2-4.8); NEUTROPHILS % (AUTO) 67.8 % (42.0-75.0); PLATELET COUNT 420 X10^3/uL (150.0-450.0); RED BLOOD COUNT 3.68 X10^6/uL (3.5-5.4); WHITE BLOOD COUNT 11.4 X10^3/uL (3.6-10.0)
[2019-10-26] MEDS: HumuLIN R SUBCUT PRN ×4 (06:28→20:44)
[2019-10-26 06:38] LABS: ALANINE AMINOTRANSFERASE 13 Units/L (12-78); ALBUMIN 3.4 g/dL (3.4-5.0); ALKALINE PHOSPHATASE 80 Units/L (46-116); ASPARTATE AMINO TRANSFERASE 17 Units/L (15-37); BLOOD UREA NITROGEN 40 mg/dL (7-18); CALCIUM 8.7 mg/dL (8.5-10.1); CARBON DIOXIDE 23.7 mmol/L (21-32); CHLORIDE 99 mmol/L (98-107); COR NA(FOR HYPERGLY) 140 mmol/L (136-145); CREATININE 1.37 mg/dL (0.55-1.02); SODIUM 135 mmol/L (136-145); TOTAL PROTEIN 7.3 g/dL (6.4-8.2); eGFR NON BLACK RACES 39 (>60)
[2019-10-26 06:55] LABS: HYPOCHROMASIA SLIGHT; PLATELET MORPHOLOGY COMMENT NORMAL (NORMAL)
--- NOTE | 2019-10-26 09:59 | DR.H&P ---
H&P - History & Physical for Day of: H&P Date: 10/25/19 - Chief Complaint Chief Complaint: RUQ PAIN, DIARRHEA, WEAKNESS - History of Present Illness History of Present Illness: IS A 83 YEAR OLD PATIENT OF OURS WHO PRESENTED TO THE ER WITH COMPLAINTS OF RIGHT UPPER QUADRANT PAIN X 2-3 WEEKS AND WEAKNESS. SHE REPORTS THAT SHE CHECKED HER GLUCOSE AT HOME AND THE MACHINE READ HIGH. SHE DENIES FEVER, VOMITING, COUGH. SHE RATES PAIN 6/10 AND DESCRIBES IT DULL. SHE DOES REPORT SOME DIARRHEA OVER THE PAST FEW DAYS. PMH INCLUDES CAD, CHF, HYPERLIPIDEMIA, HTN, ANGINA, COPD, GERD, DMII, HYPOTHYROIDISM, AND ANEMIA. SHE HAS A HX OF PELVIC TUMORS, CABG, AND CHOLECYTECTOMY, AND HYSTERECTOMY. ON ARRIVAL TO THE ER, VITALS WERE 98.2-90-24-95%-132/62. LABS WERE OBTAINED. ABNORMAL LAB VALUES INCLUDE THE FOLLOWING: HGB 10.4, HCT 32.7, PLT COUNT 456, SODIUM 131, CHLORIDE 92, BUN 47, CREATININE 1.85, GLUCOSE 624, AST 14. URINALYSIS IS UNREMARKABLE. AN ABDOMEN XRAY WAS OBTAINED AND REVEALED: NO ACUTE CARDIOPULMONARY DISEASE. NO EVIDENCE FOR ACUTE ABDOMINAL PATHOLOGY. SHE WAS GIVEN HUMULIN R 10 UNITS IV X 1 AND A NORMAL SALINE 500ML BOLUS. BLOOD GLUCOSE DECREASED TO 480. SHE WAS GIVEN HUMULIN R 10 UNITS IV AGAIN. BLOOD GLUCOSE THEN DECREASED TO 316. SHE WAS ADMITTED TO THE HOSPITAL FOR FURTHER EVALUATION AND TREATMENT OF UNCONTROLLED DIABETES AND RUQ PAIN. SHE WAS STARTED ON NS AT 125 ML/HR, HUMULIN R SLIDING SCALE, LOVENOX 40MG SC DAILY, NORCO 5/325MG PO Q6H. TODAY, WE WILL OBTAIN STOOL STUDIES AND CHECK AN ABDOMEN/PELVIS CT WITHOUT CONTRAST. OTHERWISE, WE WILL FOLLOW UP WITH AM LABS AND CONTINUE TO MONITOR. - Past Medical History Past Medical History: Diabetes - Past Surgical History Surgical History: Angioplasty/Stents, CABG/Valve Surgery, Cholecystectomy, Hysterectomy - Family History Family Medical History: Diabetes Mellitus, Cancer, Coronary Artery Disease, Heart Failure, Hypertension - Social History Does patient currently use any type of tobacco product: No Have you used tobacco products in the last 12 months: No Type of Tobacco Use: None Does any household member use tobacco: No Alcohol Use: None Drug Use: None - Medications Home Medications: Penicillins Allergy (Verified 10/25/19 21:18) CONTINUE taking the following medications amlodipine 5 mg PO AC 10/25/19 [History] aspirin 81 mg PO AC 10/25/19 [History] cholecalciferol (vitamin D3) [Vitamin D3] 2,000 unit PO AC 10/25/19 [History] duloxetine [Cymbalta] 60 mg PO AC 10/25/19 [History] famotidine 40 mg PO BID 10/25/19 [History] fenofibrate nanocrystallized [Tricor] 145 mg PO HS 10/25/19 [History] furosemide 40 mg PO AC 10/25/19 [History] gabapentin 100 mg PO HS 10/25/19 [History] levothyroxine [Synthroid] 50 mcg PO AC 10/25/19 [History] memantine 10 mg PO BID 10/25/19 [History] olmesartan [Benicar] 20 mg PO BID 10/25/19 [History] pantoprazole [Protonix] 40 mg PO AC 10/25/19 [History] primidone 50 mg PO TID 10/25/19 [History] rosuvastatin [Crestor] 20 mg PO HS 10/25/19 [History] zolpidem [Ambien] 10 mg PO HS 10/25/19 [History] - Review of Systems Constitutional: See HPI, Weakness, Malaise Eyes: No Symptoms Reported ENT: No Symptoms Reported Respiratory: No Symptoms Reported Cardiovascular: No Symptoms Reported Gastrointestinal: Abdominal Pain, Diarrhea Genitourinary: No Symptoms Reported Musculoskeletal: No Symptoms Reported Skin: No Symptoms Reported Neurological: Weakness - Physical Exam Vital Signs: Temperature 98.0 F Pulse Rate [Left] 75 Pulse Rate 90 Respiratory Rate 18 Blood Pressure [Left Arm] 122/59 Blood Pressure [Right Arm] 146/68 Blood Pressure 132/62 O2 Sat by Pulse Oximetry 95 Oriented: Normal Eyes: Normal Ear: Normal Nose: Normal Throat: Normal Respiratory: Diminished Throughout Cardiovascular: Normal. negative: S3, S4, Murmur : Normal Auscultation: Bowel Sounds: Normal Palpation: Normal Tenderness: RUQ, Mild. negative: Rebound, Guarding, Rigidity Skin: Normal Musculoskeletal: Normal Psychiatric: Normal Mood Description: Calm Affect: Normal Speech Pattern: Clear - Assessment/Plan (1) Abdominal pain Qualifiers: Abdominal location: right upper quadrant Qualified Code(s): R10.11 - Right upper quadrant pain Status: Acute Plan: ADMIT, NS AT 125 ML/HR, HUMULIN R SLIDING SCALE, LOVENOX 40MG SC DAILY, NORCO 5/325MG PO Q6H. (2) Uncontrolled diabetes mellitus Qualifiers: Diabetes mellitus type: type 2 Glycemic state: with hyperglycemia Qualified Code(s): E11.65 - Type 2 diabetes mellitus with hyperglycemia Status: Acute (3) Diarrhea Qualifiers: Diarrhea type: presumed infectious Qualified Code(s): R19.7 - Diarrhea, unspecified Status: Acute Plan: STOOL STUDIES, OBTAIN ABDOMEN/PELVIS CT WITHOUT CONTRAST - Allergies Allergies/Adverse Reactions: Allergies Allergy/AdvReac Type Severity Reaction Status Date / Time Penicillins Allergy Verified 10/25/19 21:18
[2019-10-26] MEDS: LOVENOX INJ 40 MG SYR SC SCH (10:15)
--- NOTE | 2019-10-26 11:18 | CT ---
HISTORYRUQ PAINSTUDYABDOMEN/PELVIS W/O CONCOMPARISONNone availableTECHNIQUEMultiple axial images of the abdomen and pelvis were obtained from the lung bases to the pubic symphysis without the administration of IV contrast. Dose reduction techniques including Automated Exposure Control (AEC) and adjustment of mA and kV were utilized.FINDINGS[Refer to chest CT for description of cavitary lesion within the right lower lobe.Given limitations of a noncontrast examination no focal hepatic lesion. The gallbladder, spleen, pancreas and adrenal glands are unremarkable. There is mild dilatation of the common bile duct at the level of the pancreatic head.] Adrenal glands are normal. Neither kidney demonstrates evidence of nephrolithiasis, hydronephrosis or mass. Urinary bladder is normal. No pelvic or adnexal mass. The rectum is normal. Distal colonic diverticulosis without evidence of acute diverticulitis. The appendix is normal. Terminal ileum is normal. Diastasis of the inferior most aspect of the rectus abdominus muscle with bulging of the peroneal fat and loops of nonobstructed small bowel. No pelvic free fluid. Marked calcified atherosclerotic disease of the infrarenal abdominal aorta. No enlarged abdominal or pelvic lymph node. Review of bone windows demonstrates no acute osseous abnormality. Chronic compression fracture deformity at L1 with retropulsion of the posterior vertebral body wall causing moderate spinal canal stenosis. Moderate spondylosis at L3-4 and L4-5.IMPRESSIONRefer to separate chest CT report for description of cavitary lesion within the right lower lobe.No acute inflammatory process within the abdomen or pelvis.Mild common bile duct dilatation to the level the ampulla without definite obstructing stone or mass identified; however correlation with cholestatic function test is recommended.Distal colonic diverticulosis without evidence of acute diverticulitis.Diastasis of the inferior rectus abdominus muscle with herniation of peritoneal fat and nonobstructed loops of small bowel.Chronic wedge compression fracture at L1 with retropulsion of the posterior vertebral wall into the spinal canal causing moderate spinal canal stenosis.Severe calcified atherosclerotic disease of the infrarenal abdominal aorta.Electronically signed by: EVANS CALDERÓN (October 26, 2019 11:16:14)
--- NOTE | 2019-10-26 11:24 | CT ---
HISTORYRight upper quadrant pain, renal failureSTUDYCHEST W/O CONTechnique: Axial noncontrast images with coronal and sagittal reformats. Dose reduction procedures were used with mA/kv adjusted for body size. This examination is limited due to the lack of intravenous contrast which could not be administered due to the patient's renal insufficiency.COMPARISONNoneFINDINGSExamination of the mediastinum demonstrated no definite evidence for mediastinal masses, enlarged mediastinal or enlarged hilar adenopathy. Nonenlarged mediastinal no hossein are present. Calcific atherosclerotic change is present in a nondilated abdominal aorta. Coronary artery calcifications are present. No pleural effusions are identified. No chest wall or axillary ab normality is identified. Those portions of the upper abdominal organs visualized were within normal l imits to the limitations of an unenhanced examination. Examination of the lung bond demonstrated so me changes of centrilobular emphysema to be present. In the superior segment of the right lower lobe abutting the posterior pleura there is a 2.7 by 4.3 by 4.3 cm thick walled cavitary mass. This could represent cavitating primary lung malignancy, lung abscess, or cavitating fungal or other granulomato us disease. PET-CT would be of further diagnostic value. The remainder of the lung bond are clear.I MPRESSION2.7 x 4.3 x 4.3 cm thick walled cavitary mass posteriorly in the superior segment of the rig ht lower lobe abutting the posterior pleura. This could represent cavitary malignancy, lung abscess, or cavitating fungal or other granulomatous disease. Percutaneous biopsy or PET-CT would be of furthe r diagnostic value.Centrilobular emphysematous changes in the upper lobesElectronically signed by: ANGELIC CURTIS (October 26, 2019 11:23:23)
[2019-10-26] MEDS: TORADOL 30 MG VIAL IVP SCH (15:52)
[2019-10-26] MEDS: MORPHINE SULFATE INJ 2 MG INJ IVP PRN ×2 (16:31→20:44)
[2019-10-26] MEDS ORDERED: NITROSTAT SL PRN (17:07)
[2019-10-26] MEDS: HEMOCYTE-PLUS PO SCH (18:12)
[2019-10-26] MEDS ORDERED: SNACK - Diabetic Appropriate PO SCH (20:00)
[2019-10-26] MEDS: SNACK - Diabetic Appropriate PO SCH (20:29)
[2019-10-26] MEDS: BENICAR TAB 40 MG PO SCH (20:41)
[2019-10-26] MEDS: CRESTOR TAB 10 MG PO SCH (20:42)
[2019-10-26] MEDS: TRICOR TAB 145 MG PO SCH (20:42)
[2019-10-26] MEDS: ZANAFLEX PO SCH (20:42)
[2019-10-26] MEDS: NAMENDA TAB 10 MG PO SCH (20:43)
[2019-10-26] MEDS: VOLTAREN 1 % GEL MULTI DOSE TUBE TOP SCH (20:43)
[2019-10-26] MEDS ORDERED: METAXALONE 800 MG PO SCH (21:00)
[2019-10-26] MEDS: MYSOLINE PO SCH (21:00)
[2019-10-26 22:38] LABS: BILIRUBIN,URINE NEGATIVE (NEGATIVE); BLOOD/HEMOGLOBIN,URINE 2+ (NEGATIVE); GLUCOSE, URINE 4+ (NEGATIVE); KETONES,URINE NEGATIVE (NEGATIVE); LEUKOCYTE ESTERASE ,URINE 3+ (NEGATIVE); NITRITES,URINE NEGATIVE (NEGATIVE); PROTEIN,URINE 1+ (NEGATIVE); UROBILINOGEN,URINE NORMAL (NORMAL)
[2019-10-26 23:05] LABS: APPEARANCE,URINE SLIGHTLY HAZY (CLEAR); COLOR,URINE YELLOW (YELLOW)
[2019-10-26 23:06] LABS: BACTERIA,URINE TRACE /HPF (NEGATIVE); SQUAMOUS EPITHELIAL CELL,UR FEW /HPF (NEGATIVE)
[2019-10-27] MEDS: MORPHINE SULFATE INJ 2 MG INJ IVP PRN ×5 (00:55→22:45)
[2019-10-27] MEDS: TORADOL 30 MG VIAL IVP SCH ×2 (03:55→16:00)
[2019-10-27] MEDS: SYNTHROID 50 mcg TAB PO SCH (05:30)
[2019-10-27] MEDS: MYSOLINE PO SCH ×3 (05:30→21:02)
[2019-10-27 05:45] LABS: BASOPHILS % (AUTO) 0.6 % (0.2-1.0); EOSINOPHILS # (AUTO) 0.1 x10^3/uL (0.0-0.2); EOSINOPHILS % (AUTO) 2.2 % (0.9-2.9); HEMATOCRIT 23.9 % (36.0-47.0); HEMOGLOBIN 7.7 g/dL (12.0-16.0); LYMPHOCYTES # (AUTO) 2.2 X10^3/uL (1.3-2.9); MEAN CORPUSCULAR HEMOGLOBIN 25.9 pg (27.0-34.0); MEAN CORPUSCULAR HGB CONC 32.2 g/dL (33.0-35.0); MEAN CORPUSCULAR VOLUME 80.4 fL (80.0-100.0); MEAN PLATELET VOLUME 7.1 fL (7.4-11.0); MONOCYTES # (AUTO) 0.5 x10^3/uL (0.3-0.8); MONOCYTES % (AUTO) 7.3 % (0.0-13.0); NEUTROPHILS # (AUTO) 3.4 x10^3/uL (2.2-4.8); NEUTROPHILS % (AUTO) 54.9 % (42.0-75.0); PLATELET COUNT 312 X10^3/uL (150.0-450.0); RED BLOOD COUNT 2.97 X10^6/uL (3.5-5.4); RED CELL DISTRIBUTION WIDTH 15.8 % (11.6-16.5); WHITE BLOOD COUNT 6.2 X10^3/uL (3.6-10.0)
[2019-10-27] MEDS: NS 1000 ML 1,000 ML IV SCH ×4 (06:04→23:20)
[2019-10-27 06:05] LABS: ALANINE AMINOTRANSFERASE 14 Units/L (12-78); ALBUMIN 2.7 g/dL (3.4-5.0); ALKALINE PHOSPHATASE 63 Units/L (46-116); AMYLASE 54 Units/L (25-115); ASPARTATE AMINO TRANSFERASE 13 Units/L (15-37); BLOOD UREA NITROGEN 25 mg/dL (7-18); CALCIUM 8.2 mg/dL (8.5-10.1); CARBON DIOXIDE 25.8 mmol/L (21-32); CHLORIDE 106 mmol/L (98-107); COR CA(FOR HYPOALB) 9.2 mg/dL (8.5-10.1); COR NA(FOR HYPERGLY) 143 mmol/L (136-145); CREATININE 0.97 mg/dL (0.55-1.02); LIPASE 149 Units/L (73-393); SODIUM 139 mmol/L (136-145); TOTAL PROTEIN 5.9 g/dL (6.4-8.2); eGFR NON BLACK RACES 58 (>60)
[2019-10-27 06:13] LABS: HYPOCHROMASIA 1+; MICROCYTOSIS SLIGHT; PLATELET MORPHOLOGY COMMENT NORMAL (NORMAL)
[2019-10-27] MEDS ORDERED: ROCEPHIN VIAL 1 GRAM 1 G in NS 100 ML IV + SPIKE MINIBAG* 100 ML IV SCH (09:00)
[2019-10-27] MEDS: NORCO 5/325 MG TAB PO PRN ×2 (09:09→21:04)
[2019-10-27] MEDS: NORVASC TAB 5 MG PO SCH (09:10)
[2019-10-27] MEDS: XANAX PO PRN ×2 (09:10→21:02)
[2019-10-27] MEDS: LOVENOX INJ 40 MG SYR SC SCH (09:11)
[2019-10-27] MEDS: NAMENDA TAB 10 MG PO SCH ×2 (09:11→21:03)
[2019-10-27] MEDS: PROTONIX TAB 40 MG PO SCH (09:11)
[2019-10-27] MEDS: HEMOCYTE-PLUS PO SCH (09:11)
[2019-10-27] MEDS: PEPCID TAB 20 MG PO SCH (09:11)
[2019-10-27] MEDS: ASPIRIN EC 81 MG PO SCH (09:12)
[2019-10-27] MEDS: BENICAR TAB 40 MG PO SCH ×2 (09:12→21:02)
[2019-10-27] MEDS: VITAMIN D3 25 mcg (1,000 UNITS) PO SCH (09:13)
[2019-10-27] MEDS ORDERED: LEVEMIR SC SCH (10:00)
[2019-10-27] MEDS ORDERED: ROCEPHIN VIAL 1 GRAM ONE (10:05)
[2019-10-27] MEDS ORDERED: NS 100 ML IV + SPIKE MINIBAG* 100 ML IV ONE (10:06)
[2019-10-27] MEDS: CYMBALTA PO SCH (10:07)
[2019-10-27] MEDS: VOLTAREN 1 % GEL MULTI DOSE TUBE TOP SCH ×2 (10:08→21:10)
[2019-10-27] MEDS: ROCEPHIN VIAL 1 GRAM 1 G in NS 100 ML IV + SPIKE MINIBAG* 100 ML IV SCH (10:30)
[2019-10-27] MEDS: LEVEMIR SC SCH ×2 (11:57→21:01)
[2019-10-27] MEDS: HumuLIN R SUBCUT PRN ×2 (12:57→21:00)
[2019-10-27 14:27] LABS: CRYPTOSPORIDIUM PARVUM ANTIGEN NEGATIVE (NEGATIVE); GIARDIA LAMBLIA ANTIGEN NEGATIVE (NEGATIVE)
[2019-10-27] MEDS: SNACK - Diabetic Appropriate PO SCH (20:58)
[2019-10-27] MEDS: TRICOR TAB 145 MG PO SCH (21:02)
[2019-10-27] MEDS: ZANAFLEX PO SCH (21:02)
[2019-10-27] MEDS: CRESTOR TAB 10 MG PO SCH (21:03)
[2019-10-27 22:21] LABS: HEMATOCRIT 26.1 % (36.0-47.0); HEMOGLOBIN 8.6 g/dL (12.0-16.0)
[2019-10-28] MEDS: MORPHINE SULFATE INJ 2 MG INJ IVP PRN ×3 (03:16→21:25)
[2019-10-28] MEDS: TORADOL 30 MG VIAL IVP SCH ×3 (03:31→19:35)
[2019-10-28] MEDS: NORCO 5/325 MG TAB PO PRN (05:10)
[2019-10-28 05:36] LABS: ALANINE AMINOTRANSFERASE 15 Units/L (12-78); ALBUMIN 3.1 g/dL (3.4-5.0); ALKALINE PHOSPHATASE 77 Units/L (46-116); ASPARTATE AMINO TRANSFERASE 16 Units/L (15-37); BLOOD UREA NITROGEN 15 mg/dL (7-18); CARBON DIOXIDE 27.6 mmol/L (21-32); CHLORIDE 104 mmol/L (98-107); COR CA(FOR HYPOALB) 9.7 mg/dL (8.5-10.1); COR NA(FOR HYPERGLY) 141 mmol/L (136-145); CREATININE 0.99 mg/dL (0.55-1.02); SODIUM 140 mmol/L (136-145); TOTAL PROTEIN 6.8 g/dL (6.4-8.2); eGFR NON BLACK RACES 57 (>60)
[2019-10-28 05:37] LABS: BASOPHILS % (AUTO) 0.6 % (0.2-1.0); EOSINOPHILS # (AUTO) 0.2 x10^3/uL (0.0-0.2); EOSINOPHILS % (AUTO) 2.7 % (0.9-2.9); HEMATOCRIT 27.8 % (36.0-47.0); HEMOGLOBIN 8.9 g/dL (12.0-16.0); LYMPHOCYTES # (AUTO) 2.1 X10^3/uL (1.3-2.9); MEAN CORPUSCULAR HEMOGLOBIN 25.5 pg (27.0-34.0); MEAN CORPUSCULAR VOLUME 79.8 fL (80.0-100.0); MEAN PLATELET VOLUME 7.1 fL (7.4-11.0); MONOCYTES # (AUTO) 0.4 x10^3/uL (0.3-0.8); MONOCYTES % (AUTO) 5.7 % (0.0-13.0); NEUTROPHILS # (AUTO) 3.5 x10^3/uL (2.2-4.8); PLATELET COUNT 384 X10^3/uL (150.0-450.0); RED BLOOD COUNT 3.48 X10^6/uL (3.5-5.4); RED CELL DISTRIBUTION WIDTH 15.8 % (11.6-16.5); WHITE BLOOD COUNT 6.2 X10^3/uL (3.6-10.0)
[2019-10-28 05:52] LABS: PLATELET MORPHOLOGY COMMENT NORMAL (NORMAL)
[2019-10-28] MEDS: MYSOLINE PO SCH ×3 (06:01→21:15)
[2019-10-28] MEDS: SYNTHROID 50 mcg TAB PO SCH (06:02)
[2019-10-28] MEDS: NS 1000 ML 1,000 ML IV SCH ×5 (06:03→23:05)
[2019-10-28] MEDS ORDERED: K-RIDER 10 MEQ/NS 100 ML 10 MEQ/100 ML BAG IV PRN (06:32)
[2019-10-28] MEDS ORDERED: POTASSIUM CHL 60 MEQ/NS 0.45% 500 ML IV PRN (06:32)
[2019-10-28] MEDS ORDERED: MICRO K EXTEN CAP 10 MEQ PO PRN (06:32)
[2019-10-28] MEDS ORDERED: POTASSIUM CHL 40 MEQ/NS 0.45% 500 ML IV PRN (06:32)
[2019-10-28] MEDS ORDERED: KLOR-CON PO PRN (06:32)
[2019-10-28] MEDS ORDERED: POTASSIUM CHLORIDE LIQ 20 MEQ UDC PO PRN (06:32)
[2019-10-28] MEDS: PEPCID TAB 20 MG PO SCH (08:26)
[2019-10-28] MEDS: HEMOCYTE-PLUS PO SCH (08:26)
[2019-10-28] MEDS: BENICAR TAB 40 MG PO SCH ×2 (08:26→21:16)
[2019-10-28] MEDS: PROTONIX TAB 40 MG PO SCH (08:27)
[2019-10-28] MEDS: NORVASC TAB 5 MG PO SCH (08:27)
[2019-10-28] MEDS: NAMENDA TAB 10 MG PO SCH ×2 (08:27→21:15)
[2019-10-28] MEDS: ASPIRIN EC 81 MG PO SCH (08:27)
[2019-10-28] MEDS: ROCEPHIN VIAL 1 GRAM 1 G in NS 100 ML IV + SPIKE MINIBAG* 100 ML IV SCH (08:28)
[2019-10-28] MEDS: LOVENOX INJ 40 MG SYR SC SCH (08:28)
[2019-10-28] MEDS: VITAMIN D3 25 mcg (1,000 UNITS) PO SCH (08:30)
[2019-10-28] MEDS: LEVEMIR SC SCH ×2 (08:30→21:17)
[2019-10-28] MEDS: VOLTAREN 1 % GEL MULTI DOSE TUBE TOP SCH ×2 (08:33→21:18)
[2019-10-28] MEDS: CYMBALTA PO SCH (10:53)
[2019-10-28] MEDS: K-DUR TAB 20 MEQ PO PRN (10:53)
[2019-10-28] MEDS: NORCO 7.5/325 MG TAB PO PRN ×2 (10:53→16:50)
[2019-10-28] MEDS: MAGNESIUM SULFATE 1 GRAM/100 mL PREMIX 1 GM/100 ML BAG IV PRN ×2 (10:54→12:33)
--- NOTE | 2019-10-28 11:21 | PCM.PROG ---
Progress Note - Progress Note for Day of Date of Exam: 10/27/19 - Subjective Subjective: IS BEING TREATED FOR RUQ PAIN AND UNCONTROLLED DIABETES. TODAY, SHE IS ALERT AND ORIENTED, LYING IN BED ON MORNING ROUNDS. SHE CONTINUES WITH RUQ PAIN. SHE ALSO REPORTS SHORTNESS OF BREATH AND RIGHT SIDED BACK PAIN. SHE REPORTS THAT THE BACK PAIN IS LOCATED AROUND THE ARE OF THE RIGHT SIDE RIBS. ON EXAMINATION, HEART IS REGULAR IN RATE AND RHYTHM. BILATERAL LUNGS ARE NOTED WITH DIMINISHED LUNG SOUNDS THROUGHOUT. ABDOMEN IS ROUND, SOFT, AND NON-TENDER NOTED WITH RUQ TENDERNESS. NORMAL BOWEL SOUNDS ARE NOTED IN ALL QUADRANTS. THERE IS ALSO TENDERNESS TO THE RIGHT SIDE RIB AREA. HER VITALS THIS MORNING ARE: 98.4-74-22-92%RA-131/60. LABS WERE OBTAINED. ABNORMAL LAB VALUES INCLUDE THE FOLLOWING: RBC 2.97, HGB 7.7, HCT 23.9, BUN 25, GLUCOSE 246, CALCIUM 8.2, TOTAL BILI 0.10, AST 13, TOTAL PROTEIN 5.9, ALBUMIN 2.7. A URINALYSIS WAS REPEATED LAST NIGHT AND REVEALED: WBC TNTC, RBC 3-5, BACTERIA TRACE, LEUKOCYTES 3+, OCCULT BLOOD 2+. URINE CULTURE IS PENDING. WE OBTAINED AND ABDOMEN/PELVIS CT WITHOUT CONTRAST YESTERDAY. IT REVEALED: Refer to separate chest CT report for description of cavitary lesion within the right lower lobe. No acute inflammatory process within the abdomen or pelvis. Mild common bile duct dilatation to the level the ampulla without definite obstructing stone or mass identified; however correlation with cholestatic function test is recommended. Distal colonic diverticulosis without evidence of acute diverticulitis. 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 Chronic wedge compression fracture at L1 with retropulsion of the posterior vertebral wall into the spinal canal causing moderate spinal canal stenosis. Severe calcified atherosclerotic disease of the infrarenal abdominal aorta. WE THEN OBTAINED A CHEST CT. IT REVEALED: 2.7 x 4.3 x 4.3 cm thick walled cavitary mass posteriorly in the superior segment of the right lower lobe abutting the posterior pleura. This could represent cavitary malignancy, lung abscess, or cavitating fungal or other granulomatous disease. Percutaneous biopsy or PET-CT would be of further diagnostic value. Centrilobular emphysematous changes in the upper lobes. WE DISCUSSED FINDINGS WITH PATIENT. SHE UNDERSTANDS THAT SHE WILL NEED FOLLOW-UP FOR A POSSIBLE BIOPSY AFTER DISCHARGE. SHE IS CURRENTLY RECEIVING: NS AT 125 ML/HR, HUMULIN R SLIDING SCALE, LOVENOX 40MG SC DAILY,MORPHINE 1-2MG IV Q4H PRN PAIN, NORCO 5/325MG PO Q6H, AND HER HOME MEDICATIONS WERE RESUMED. TODAY, WE WILL ADD LEVEMIR 10 UNITS SC BID AND TORADOL 30MG IV Q12H. OTHERWISE, WE PLAN TO FOLLOW UP WITH AM LABS AND CONTINUE TO MONITOR. - Past Medical Family Social History Past Med/Fam/Surg Hx: No changes since H&P Allergies: Allergies Penicillins Allergy (Verified 10/25/19 21:18) - Review of Systems ROS: No change since H&P - Vital Signs and I&O's Vital Signs: Temperature 97.9 F Pulse Rate [Left] 73 Pulse Rate 90 Respiratory Rate 24 Blood Pressure [Left Arm] 146/64 Blood Pressure [Right Arm] 153/77 Blood Pressure 132/62 O2 Sat by Pulse Oximetry 99 Intake and Output: Intake & Output 10/25/19 10/26/19 10/27/19 10/28/19 11:59 11:59 11:59 11:59 Intake Total 1640 / 1640 3040 / 3040 2791 / 2791 Output Total 325 / 325 550 / 550 Balance 1315 / 1315 2490 / 2490 2791 / 2791 - Physical Exam Oriented: Normal Eyes: Normal Ear: Normal Nose: Normal Throat: Normal Respiratory: Generalized, Diminished Cardiovascular: Normal. negative: S3, S4, Murmur : Normal Auscultation: Bowel Sounds: Normal Palpation: Normal Tenderness: Diffuse, RUQ, Mild. negative: Rebound, Guarding, Rigidity Skin: Normal Musculoskeletal: Normal Psychiatric: Normal Mood Description: Calm Affect: Normal Speech Pattern: Clear, Appropriate - Laboratory and Diagnostics Result Diagrams: 10/28/19 05:00 10/28/19 05:00 Labs: 10/27/19 11:45 Stool Stool Culture - Preliminary 10/27/19 11:45 Stool - Final 10/26/19 22:19 Urine,Clean Catch Urine Culture - Preliminary Laboratory WBC 6.2 X10^3/uL (3.6-10.0) 10/28/19 05:00 RBC 3.48 X10^6/uL (3.5-5.4) L 10/28/19 05:00 Hgb 8.9 g/dL (12.0-16.0) L 10/28/19 05:00 Hct 27.8 % (36.0-47.0) L 10/28/19 05:00 MCV 79.8 fL (80.0-100.0) L 10/28/19 05:00 MCH 25.5 pg (27.0-34.0) L 10/28/19 05:00 MCHC 32.0 g/dL (33.0-35.0) L 10/28/19 05:00 RDW 15.8 % (11.6-16.5) 10/28/19 05:00 Plt Count 384 X10^3/uL (150.0-450.0) 10/28/19 05:00 Plt Count Comment Adequate (ADEQUATE) 10/28/19 05:00 MPV 7.1 fL (7.4-11.0) L 10/28/19 05:00 Neut % (Auto) 57.0 % (42.0-75.0) 10/28/19 05:00 Lymph % (Auto) 34.0 % (21.0-51.0) 10/28/19 05:00 [place] % (Auto) 5.7 % (0.0-13.0) 10/28/19 05:00 Eos % (Auto) 2.7 % (0.9-2.9) 10/28/19 05:00 Baso % (Auto) 0.6 % (0.2-1.0) 10/28/19 05:00 Neut # (Auto) 3.5 x10^3/uL (2.2-4.8) 10/28/19 05:00 Lymph # (Auto) 2.1 X10^3/uL (1.3-2.9) 10/28/19 05:00 [place] # (Auto) 0.4 x10^3/uL (0.3-0.8) 10/28/19 05:00 Eos # (Auto) 0.2 x10^3/uL (0.0-0.2) 10/28/19 05:00 Baso # (Auto) 0.0 X10^3/uL (0.0-0.1) 10/28/19 05:00 Absolute Nucleated RBC 0.0 /100WBC 10/28/19 05:00 Plt Morphology Comment Normal (NORMAL) 10/28/19 05:00 RBC Morphology Normal (NORMAL) 10/28/19 05:00 Hypochromasia 1+ A 10/27/19 05:31 Microcytosis Slight A 10/27/19 05:31 Sodium 140 mmol/L (136-145) 10/28/19 05:00 Corrected Sodium 141 mmol/L (136-145) 10/28/19 05:00 Potassium 3.5 mmol/L (3.5-5.1) 10/28/19 05:00 Chloride 104 mmol/L (98-107) 10/28/19 05:00 Carbon Dioxide 27.6 mmol/L (21-32) 10/28/19 05:00 BUN 15 mg/dL (7-18) 10/28/19 05:00 Creatinine 0.99 mg/dL (0.55-1.02) 10/28/19 05:00 Est GFR (MDRD) Af Amer > 60 (>60) 10/28/19 05:00 Est GFR (MDRD) Non-Af 57 (>60) L 10/28/19 05:00 Glucose 152 mg/dL (65-99) H 10/28/19 05:00 POC Glucose (mg/dL) 132 mg/dL (65-99) H 10/28/19 05:28 Hemoglobin A1c 12.0 % 10/26/19 05:56 Calcium 9.0 mg/dL (8.5-10.1) 10/28/19 05:00 Corrected Calcium 9.7 mg/dL (8.5-10.1) 10/28/19 05:00 Magnesium 1.7 mg/dL (1.7-2.9) 10/28/19 05:00 Total Bilirubin 0.20 mg/dL (0.2-1.0) 10/28/19 05:00 AST 16 Units/L (15-37) 10/28/19 05:00 ALT 15 Units/L (12-78) 10/28/19 05:00 Alkaline Phosphatase 77 Units/L (46-116) 10/28/19 05:00 Total Protein 6.8 g/dL (6.4-8.2) 10/28/19 05:00 Albumin 3.1 g/dL (3.4-5.0) L 10/28/19 05:00 Globulin 3.7 g/dL (2.5-4.5) 10/28/19 05:00 Albumin/Globulin Ratio 0.8 Ratio (1.1-2.1) L 10/28/19 05:00 Amylase 54 Units/L (25-115) 10/27/19 05:31 Lipase 149 Units/L (73-393) 10/27/19 05:31 Specimen Type Clean catch urine 10/26/19 22:19 Urine Color Yellow (YELLOW) 10/26/19 22:19 Urine Appearance Slightly hazy (CLEAR) 10/26/19 22:19 Urine pH 6.0 (5.0 - 8.0) 10/26/19 22:19 Ur Specific [place] 1.010 (1.000-1.030) 10/26/19 22:19 Urine Protein 1+ (NEGATIVE) 10/26/19 22:19 Urine Glucose (UA) 4+ (NEGATIVE) 10/26/19 22:19 Urine Ketones Negative (NEGATIVE) 10/26/19 22:19 Urine Occult Blood 2+ (NEGATIVE) 10/26/19 22:19 Urine Nitrite Negative (NEGATIVE) 10/26/19 22: Urine Bilirubin Negative (NEGATIVE) 10/26/19 22:19 Urine Urobilinogen Normal (NORMAL) 10/26/19 22:19 Ur Leukocyte Esterase 3+ (NEGATIVE) 10/26/19 22:19 Urine RBC 3-5 /HPF (0-3) A 10/26/19 22: Urine WBC Tntc /HPF (0-5) A 10/26/19 22:19 Ur Squamous Epith Cells Few /HPF (NEGATIVE) 10/26/19 22:19 Urine Bacteria Trace /HPF (NEGATIVE) 10/26/19 22:19 Ur Culture Indicated? Yes/culture set up 10/26/19 22:19 Stool Description 55g formed black 10/27/19 11:45 Stool Description 55g formed black 10/27/19 11:45 Stl Occult Blood (IFOB) Positive (NEGATIVE) A 10/27/19 11:45 Stool for White Cells Negative (NEGATIVE) 10/27/19 11:45 Stl C. diff Tox B Gene Negative (NEGATIVE) 10/27/19 11:45 Stl C. diff [id number] Negative (NEGATIVE) 10/27/19 11:45 Stool H. pylori Ag Negative (NEGATIVE) 10/27/19 11:45 Cryptosporid parvum Ag Negative (NEGATIVE) 10/27/19 11:45 Giardia lamblia Ag Negative (NEGATIVE) 10/27/19 11:45 - Plan (1) Abdominal pain Status: Acute Qualifiers: Abdominal location: right upper quadrant Qualified Code(s): R10.11 - Right upper quadrant pain Plan: NS AT 125 ML/HR, HUMULIN R SLIDING SCALE, LOVENOX 40MG SC DAILY, NORCO 5/325MG PO Q6H, MORPHINE 1-2MG IV Q4H PRN PAIN, TORADOL 30MG IV Q12H, CONTINUE TO MONITOR. (2) Uncontrolled diabetes mellitus Status: Acute Qualifiers: Diabetes mellitus type: type 2 Glycemic state: with hyperglycemia Qualified Code(s): E11.65 - Type 2 diabetes mellitus with hyperglycemia (3) Diarrhea Status: Acute Qualifiers: Diarrhea type: presumed infectious Qualified Code(s): R19.7 - Diarrhea, unspecified Plan: STOOL STUDIES, OBTAIN ABDOMEN/PELVIS CT WITHOUT CONTRAST
--- NOTE | 2019-10-28 11:36 | PCM.PROG ---
Progress Note - Progress Note for Day of Date of Exam: 10/28/19 - Subjective Subjective: IS BEING TREATED FOR RIGHT SIDE LUNG MASS, RUQ PAIN, URINARY TRACT INFECTION, DIARRHEA, UNCONTROLLED DIABETES. TODAY, SHE IS ALERT AND ORIENTED, LYING IN BED ON MORNING ROUNDS. SHE CONTINUES WITH RUQ PAIN, RIGHT SIDED RIB PAIN, AND SHORTNESS OF BREATH TODAY. SHE REPORTS THAT DIARRHEA IS IMPROVING. ON EXAMINATION, HEART IS REGULAR IN RATE AND RHYTHM. BILATERAL LUNGS ARE NOTED WITH DIMINISHED LUNG SOUNDS THROUGHOUT. ABDOMEN IS ROUND, SOFT, AND NON-TENDER NOTED WITH RUQ TENDERNESS. NORMAL BOWEL SOUNDS ARE NOTED IN ALL QUADRANTS. THERE IS ALSO TENDERNESS TO THE RIGHT SIDE RIB AREA. HER VITALS THIS MORNING ARE: 97.9-73-22-99%NC-153/77. LABS WERE OBTAINED. ABNORMAL LAB VALUES INCLUDE THE FOLLOWING: RBC 3.48, HGB 8.9, HCT 27.8, GLUCOSE 152, ALBUMIN 3.1. URINE CULTURE IS PENDING. STOOL STUDIES REVEAL THAT PATIENT IS POSITIVE FOR OCCULT BLOOD. STOOL CULTURE IS PENDING. SHE IS CURRENTLY RECEIVING: NS AT 125 ML/HR, ROCEPHIN 1G IV DAILY, LEVEMIR 10 UNITS SC BID, TORADOL 30MG IV Q12H, HUMULIN R SLIDING SCALE, LOVENOX 40MG SC DAILY, MORPHINE 1-2MG IV Q4H PRN PAIN, NORCO 5/325MG PO Q6H, AND HER HOME MEDICATIONS WERE RESUMED. WE WILL ORDER FOR A BONE SCAN. WE WILL INCREASE TORADOL TO Q8H AND INCREASE NORCO TO 7.5/325MG PO QID PRN PAIN. OTHERWISE, WE PLAN TO FOLLOW UP WITH AM LABS AND CONTINUE TO MONITOR. - Past Medical Family Social History Past Med/Fam/Surg Hx: No changes since H&P Allergies: Allergies Penicillins Allergy (Verified 10/25/19 21:18) - Review of Systems ROS: No change since H&P - Vital Signs and I&O's Vital Signs: Temperature 97.9 F Pulse Rate [Left] 73 Pulse Rate 90 Respiratory Rate 24 Blood Pressure [Left Arm] 146/64 Blood Pressure [Right Arm] 153/77 Blood Pressure 132/62 O2 Sat by Pulse Oximetry 99 Intake and Output: Intake & Output 10/25/19 10/26/19 10/27/19 10/28/19 11:59 11:59 11:59 11:59 Intake Total 1640 / 1640 3040 / 3040 2791 / 2791 Output Total 325 / 325 550 / 550 Balance 1315 / 1315 2490 / 2490 2791 / 2791 - Physical Exam Oriented: Normal Eyes: Normal Ear: Normal Nose: Normal Throat: Normal Respiratory: Generalized, Diminished Cardiovascular: Normal. negative: S3, S4, Murmur : Normal Auscultation: Bowel Sounds: Normal Palpation: Normal Tenderness: Diffuse, RUQ, Mild. negative: Rebound, Guarding, Rigidity Skin: Normal Musculoskeletal: Normal Psychiatric: Normal Mood Description: Calm Affect: Normal Speech Pattern: Clear, Appropriate - Laboratory and Diagnostics Result Diagrams: 10/28/19 05:00 10/28/19 05:00 Labs: 10/27/19 11:45 Stool Stool Culture - Preliminary 10/27/19 11:45 Stool - Final 10/26/19 22:19 Urine,Clean Catch Urine Culture - Preliminary Laboratory WBC 6.2 X10^3/uL (3.6-10.0) 10/28/19 05:00 RBC 3.48 X10^6/uL (3.5-5.4) L 10/28/19 05:00 Hgb 8.9 g/dL (12.0-16.0) L 10/28/19 05:00 Hct 27.8 % (36.0-47.0) L 10/28/19 05:00 MCV 79.8 fL (80.0-100.0) L 10/28/19 05:00 MCH 25.5 pg (27.0-34.0) L 10/28/19 05:00 MCHC 32.0 g/dL (33.0-35.0) L 10/28/19 05:00 RDW 15.8 % (11.6-16.5) 10/28/19 05:00 Plt Count 384 X10^3/uL (150.0-450.0) 10/28/19 05:00 Plt Count Comment Adequate (ADEQUATE) 10/28/19 05:00 MPV 7.1 fL (7.4-11.0) L 10/28/19 05:00 Neut % (Auto) 57.0 % (42.0-75.0) 10/28/19 05:00 Lymph % (Auto) 34.0 % (21.0-51.0) 10/28/19 05:00 [place] % (Auto) 5.7 % (0.0-13.0) 10/28/19 05:00 Eos % (Auto) 2.7 % (0.9-2.9) 10/28/19 05:00 Baso % (Auto) 0.6 % (0.2-1.0) 10/28/19 05:00 Neut # (Auto) 3.5 x10^3/uL (2.2-4.8) 10/28/19 05:00 Lymph # (Auto) 2.1 X10^3/uL (1.3-2.9) 10/28/19 05:00 [place] # (Auto) 0.4 x10^3/uL (0.3-0.8) 10/28/19 05:00 Eos # (Auto) 0.2 x10^3/uL (0.0-0.2) 10/28/19 05:00 Baso # (Auto) 0.0 X10^3/uL (0.0-0.1) 10/28/19 05:00 Absolute Nucleated RBC 0.0 /100WBC 10/28/19 05:00 Plt Morphology Comment Normal (NORMAL) 10/28/19 05:00 RBC Morphology Normal (NORMAL) 10/28/19 05:00 Hypochromasia 1+ A 10/27/19 05:31 Microcytosis Slight A 10/27/19 05:31 Sodium 140 mmol/L (136-145) 10/28/19 05:00 Corrected Sodium 141 mmol/L (136-145) 10/28/19 05:00 Potassium 3.5 mmol/L (3.5-5.1) 10/28/19 05:00 Chloride 104 mmol/L (98-107) 10/28/19 05:00 Carbon Dioxide 27.6 mmol/L (21-32) 10/28/19 05:00 BUN 15 mg/dL (7-18) 10/28/19 05:00 Creatinine 0.99 mg/dL (0.55-1.02) 10/28/19 05:00 Est GFR (MDRD) Af Amer > 60 (>60) 10/28/19 05:00 Est GFR (MDRD) Non-Af 57 (>60) L 10/28/19 05:00 Glucose 152 mg/dL (65-99) H 10/28/19 05:00 POC Glucose (mg/dL) 132 mg/dL (65-99) H 10/28/19 05:28 Hemoglobin A1c 12.0 % 10/26/19 05:56 Calcium 9.0 mg/dL (8.5-10.1) 10/28/19 05:00 Corrected Calcium 9.7 mg/dL (8.5-10.1) 10/28/19 05:00 Magnesium 1.7 mg/dL (1.7-2.9) 10/28/19 05:00 Total Bilirubin 0.20 mg/dL (0.2-1.0) 10/28/19 05:00 AST 16 Units/L (15-37) 10/28/19 05:00 ALT 15 Units/L (12-78) 10/28/19 05:00 Alkaline Phosphatase 77 Units/L (46-116) 10/28/19 05:00 Total Protein 6.8 g/dL (6.4-8.2) 10/28/19 05:00 Albumin 3.1 g/dL (3.4-5.0) L 10/28/19 05:00 Globulin 3.7 g/dL (2.5-4.5) 10/28/19 05:00 Albumin/Globulin Ratio 0.8 Ratio (1.1-2.1) L 10/28/19 05:00 Amylase 54 Units/L (25-115) 10/27/19 05:31 Lipase 149 Units/L (73-393) 10/27/19 05:31 Specimen Type Clean catch urine 10/26/19 22:19 Urine Color Yellow (YELLOW) 10/26/19 22: Urine Appearance Slightly hazy (CLEAR) 10/26/19 22: Urine pH 6.0 (5.0 - 8.0) 10/26/19 22: Ur Specific [place] 1.010 (1.000-1.030) 10/26/19 22: Urine Protein 1+ (NEGATIVE) 10/26/19 22:19 Urine Glucose (UA) 4+ (NEGATIVE) 10/26/19 22: Urine Ketones Negative (NEGATIVE) 10/26/19 22: Urine Occult Blood 2+ (NEGATIVE) 10/26/19 22:19 Urine Nitrite Negative (NEGATIVE) 10/26/19 22:19 Urine Bilirubin Negative (NEGATIVE) 10/26/19 22:19 Urine Urobilinogen Normal (NORMAL) 10/26/19 22:19 Ur Leukocyte Esterase 3+ (NEGATIVE) 10/26/19 22:19 Urine RBC 3-5 /HPF (0-3) A 10/26/19 22:19 Urine WBC Tntc /HPF (0-5) A 10/26/19 22:19 Ur Squamous Epith Cells Few /HPF (NEGATIVE) 10/26/19 22:19 Urine Bacteria Trace /HPF (NEGATIVE) 10/26/19 22:19 Ur Culture Indicated? Yes/culture set up 10/26/19 22:19 Stool Description 55g formed black 10/27/19 11:45 Stool Description 55g formed black 10/27/19 11:45 Stl Occult Blood (IFOB) Positive (NEGATIVE) A 10/27/19 11:45 Stool for White Cells Negative (NEGATIVE) 10/27/19 11:45 Stl C. diff Tox B Gene Negative (NEGATIVE) 10/27/19 11:45 Stl C. diff [id number] Negative (NEGATIVE) 10/27/19 11:45 Stool H. pylori Ag Negative (NEGATIVE) 10/27/19 11:45 Cryptosporid parvum Ag Negative (NEGATIVE) 10/27/19 11:45 Giardia lamblia Ag Negative (NEGATIVE) 10/27/19 11:45 - Plan (1) Abdominal pain Status: Acute Qualifiers: Abdominal location: right upper quadrant Qualified Code(s): R10.11 - Right upper quadrant pain Plan: NS AT 125 ML/HR, HUMULIN R SLIDING SCALE, LOVENOX 40MG SC DAILY, NORCO 7.5/325MG PO Q6H, MORPHINE 1-2MG IV Q4H PRN PAIN, TORADOL 30MG IV Q8H, CONTINUE TO MONITOR. (2) Uncontrolled diabetes mellitus Status: Acute Qualifiers: Diabetes mellitus type: type 2 Glycemic state: with hyperglycemia Qualified Code(s): E11.65 - Type 2 diabetes mellitus with hyperglycemia (3) Diarrhea Status: Acute Qualifiers: Diarrhea type: presumed infectious Qualified Code(s): R19.7 - Diarrhea, unspecified Plan: STOOL STUDIES, OBTAIN ABDOMEN/PELVIS CT WITHOUT CONTRAST (4) Urinary tract infection Status: Acute Qualifiers: Urinary tract infection type: acute cystitis Hematuria presence: without hematuria Qualified Code(s): N30.00 - Acute cystitis without hematuria Plan: ROCEPHIN 1G IV DAILY (5) Lung mass Status: Acute
[2019-10-28] MEDS: HumuLIN R SUBCUT PRN ×2 (16:42→21:18)
[2019-10-28] MEDS: SNACK - Diabetic Appropriate PO SCH (21:06)
[2019-10-28] MEDS: CRESTOR TAB 10 MG PO SCH (21:14)
[2019-10-28] MEDS: XANAX PO PRN (21:15)
[2019-10-28] MEDS: ZANAFLEX PO SCH (21:16)
[2019-10-28] MEDS: TRICOR TAB 145 MG PO SCH (21:16)
[2019-10-29] MEDS: NS 1000 ML 1,000 ML IV SCH ×4 (01:05→23:00)
[2019-10-29] MEDS: TORADOL 30 MG VIAL IVP SCH ×3 (02:25→19:50)
[2019-10-29] MEDS: MORPHINE SULFATE INJ 2 MG INJ IVP PRN ×4 (04:05→21:07)
[2019-10-29 05:20] LABS: BASOPHILS % (AUTO) 0.8 % (0.2-1.0); EOSINOPHILS # (AUTO) 0.1 x10^3/uL (0.0-0.2); HEMATOCRIT 24.6 % (36.0-47.0); HEMOGLOBIN 8.1 g/dL (12.0-16.0); LYMPHOCYTES # (AUTO) 1.7 X10^3/uL (1.3-2.9); LYMPHOCYTES % (AUTO) 26.3 % (21.0-51.0); MEAN CORPUSCULAR HEMOGLOBIN 26.2 pg (27.0-34.0); MEAN CORPUSCULAR VOLUME 79.4 fL (80.0-100.0); MEAN PLATELET VOLUME 7.2 fL (7.4-11.0); MONOCYTES # (AUTO) 0.4 x10^3/uL (0.3-0.8); MONOCYTES % (AUTO) 6.2 % (0.0-13.0); NEUTROPHILS # (AUTO) 4.1 x10^3/uL (2.2-4.8); NEUTROPHILS % (AUTO) 64.7 % (42.0-75.0); PLATELET COUNT 323 X10^3/uL (150.0-450.0); RED CELL DISTRIBUTION WIDTH 16.1 % (11.6-16.5); WHITE BLOOD COUNT 6.4 X10^3/uL (3.6-10.0)
[2019-10-29 05:29] LABS: ALANINE AMINOTRANSFERASE 12 Units/L (12-78); ALBUMIN 2.8 g/dL (3.4-5.0); ALKALINE PHOSPHATASE 69 Units/L (46-116); ASPARTATE AMINO TRANSFERASE 13 Units/L (15-37); BLOOD UREA NITROGEN 13 mg/dL (7-18); CALCIUM 8.4 mg/dL (8.5-10.1); CARBON DIOXIDE 25.5 mmol/L (21-32); CHLORIDE 104 mmol/L (98-107); COR CA(FOR HYPOALB) 9.4 mg/dL (8.5-10.1); COR NA(FOR HYPERGLY) 141 mmol/L (136-145); CREATININE 0.92 mg/dL (0.55-1.02); SODIUM 138 mmol/L (136-145); TOTAL PROTEIN 6.3 g/dL (6.4-8.2); eGFR NON BLACK RACES > 60 (>60)
[2019-10-29] MEDS: MYSOLINE PO SCH ×3 (06:24→21:04)
[2019-10-29] MEDS: SYNTHROID 50 mcg TAB PO SCH (06:25)
[2019-10-29] MEDS: HumuLIN R SUBCUT PRN ×4 (06:26→21:04)
[2019-10-29] MEDS: MAGNESIUM SULFATE 1 GRAM/100 mL PREMIX 1 GM/100 ML BAG IV PRN ×2 (06:38→14:06)
[2019-10-29] MEDS: NORVASC TAB 5 MG PO SCH (09:30)
[2019-10-29] MEDS: PEPCID TAB 20 MG PO SCH (09:30)
[2019-10-29] MEDS: BENICAR TAB 40 MG PO SCH ×2 (09:30→21:04)
[2019-10-29] MEDS: HEMOCYTE-PLUS PO SCH (09:31)
[2019-10-29] MEDS: PROTONIX TAB 40 MG PO SCH (09:31)
[2019-10-29] MEDS: ASPIRIN EC 81 MG PO SCH (09:35)
[2019-10-29] MEDS: CYMBALTA PO SCH (09:35)
[2019-10-29] MEDS: VOLTAREN 1 % GEL MULTI DOSE TUBE TOP SCH ×2 (09:35→21:17)
[2019-10-29] MEDS: ROCEPHIN VIAL 1 GRAM 1 G in NS 100 ML IV + SPIKE MINIBAG* 100 ML IV SCH (09:36)
[2019-10-29] MEDS: LEVEMIR SC SCH ×2 (09:36→21:06)
[2019-10-29] MEDS: VITAMIN D3 25 mcg (1,000 UNITS) PO SCH (09:36)
[2019-10-29] MEDS: NAMENDA TAB 10 MG PO SCH ×2 (09:36→21:03)
[2019-10-29] MEDS: LOVENOX INJ 40 MG SYR SC SCH (09:37)
[2019-10-29] MEDS: K-DUR TAB 20 MEQ PO PRN (09:38)
[2019-10-29] MEDS: NORCO 7.5/325 MG TAB PO PRN (14:08)
[2019-10-29] MEDS: SNACK - Diabetic Appropriate PO SCH (20:15)
[2019-10-29] MEDS: TRICOR TAB 145 MG PO SCH (21:03)
[2019-10-29] MEDS: CRESTOR TAB 10 MG PO SCH (21:03)
[2019-10-29] MEDS: XANAX PO PRN (21:03)
[2019-10-29] MEDS: ZANAFLEX PO SCH (21:04)
[2019-10-30] MEDS: TORADOL 30 MG VIAL IVP SCH ×3 (02:30→19:43)
[2019-10-30] MEDS: HumuLIN R SUBCUT PRN ×4 (06:04→21:02)
[2019-10-30] MEDS: MORPHINE SULFATE INJ 2 MG INJ IVP PRN ×4 (06:05→20:59)
[2019-10-30] MEDS: MYSOLINE PO SCH ×3 (06:07→21:03)
[2019-10-30] MEDS: SYNTHROID 50 mcg TAB PO SCH (06:07)
[2019-10-30] MEDS: NS 1000 ML 1,000 ML IV SCH ×2 (06:08→16:48)
[2019-10-30 06:27] LABS: BASOPHILS # (AUTO) 0.1 X10^3/uL (0.0-0.1); BASOPHILS % (AUTO) 1.2 % (0.2-1.0); EOSINOPHILS # (AUTO) 0.2 x10^3/uL (0.0-0.2); EOSINOPHILS % (AUTO) 2.5 % (0.9-2.9); HEMATOCRIT 27.6 % (36.0-47.0); HEMOGLOBIN 8.8 g/dL (12.0-16.0); LYMPHOCYTES # (AUTO) 2.6 X10^3/uL (1.3-2.9); LYMPHOCYTES % (AUTO) 27.3 % (21.0-51.0); MEAN CORPUSCULAR HEMOGLOBIN 25.8 pg (27.0-34.0); MEAN CORPUSCULAR HGB CONC 31.8 g/dL (33.0-35.0); MEAN CORPUSCULAR VOLUME 81.1 fL (80.0-100.0); MONOCYTES # (AUTO) 0.8 x10^3/uL (0.3-0.8); MONOCYTES % (AUTO) 8.6 % (0.0-13.0); NEUTROPHILS # (AUTO) 5.8 x10^3/uL (2.2-4.8); NEUTROPHILS % (AUTO) 60.4 % (42.0-75.0); PLATELET COUNT 325 X10^3/uL (150.0-450.0); RED CELL DISTRIBUTION WIDTH 16.7 % (11.6-16.5); WHITE BLOOD COUNT 9.5 X10^3/uL (3.6-10.0)
[2019-10-30 06:28] LABS: ALANINE AMINOTRANSFERASE 17 Units/L (12-78); ALKALINE PHOSPHATASE 60 Units/L (46-116); ASPARTATE AMINO TRANSFERASE 32 Units/L (15-37); BLOOD UREA NITROGEN 14 mg/dL (7-18); CALCIUM 8.6 mg/dL (8.5-10.1); CARBON DIOXIDE 23.7 mmol/L (21-32); CHLORIDE 103 mmol/L (98-107); COR CA(FOR HYPOALB) 9.4 mg/dL (8.5-10.1); COR NA(FOR HYPERGLY) 140 mmol/L (136-145); CREATININE 0.76 mg/dL (0.55-1.02); SODIUM 137 mmol/L (136-145); TOTAL PROTEIN 6.7 g/dL (6.4-8.2); eGFR NON BLACK RACES > 60 (>60)
[2019-10-30 06:39] LABS: ANISOCYTOSIS SLIGHT; HYPOCHROMASIA SLIGHT; PLATELET MORPHOLOGY COMMENT NORMAL (NORMAL)
[2019-10-30] MEDS: ROCEPHIN VIAL 1 GRAM 1 G in NS 100 ML IV + SPIKE MINIBAG* 100 ML IV SCH (08:21)
[2019-10-30] MEDS: LOVENOX INJ 40 MG SYR SC SCH (08:22)
[2019-10-30] MEDS: LEVEMIR SC SCH ×2 (08:22→21:01)
[2019-10-30] MEDS: PROTONIX TAB 40 MG PO SCH (08:23)
[2019-10-30] MEDS: ASPIRIN EC 81 MG PO SCH (08:23)
[2019-10-30] MEDS: HEMOCYTE-PLUS PO SCH (08:23)
[2019-10-30] MEDS: PEPCID TAB 20 MG PO SCH (08:23)
[2019-10-30] MEDS: VITAMIN D3 25 mcg (1,000 UNITS) PO SCH (08:23)
[2019-10-30] MEDS: NORCO 7.5/325 MG TAB PO PRN (08:23)
[2019-10-30] MEDS: NORVASC TAB 5 MG PO SCH (08:24)
[2019-10-30] MEDS: BENICAR TAB 40 MG PO SCH ×2 (08:24→21:01)
[2019-10-30] MEDS: VOLTAREN 1 % GEL MULTI DOSE TUBE TOP SCH ×2 (08:25→21:15)
[2019-10-30] MEDS: NAMENDA TAB 10 MG PO SCH ×2 (08:25→21:04)
[2019-10-30] MEDS: CYMBALTA PO SCH (08:30)
[2019-10-30] MEDS: XANAX PO PRN ×2 (10:47→21:03)
[2019-10-30] MEDS ORDERED: MILK OF MAGNESIA PO PRN (19:36)
[2019-10-30] MEDS: SNACK - Diabetic Appropriate PO SCH (20:50)
[2019-10-30] MEDS: TRICOR TAB 145 MG PO SCH (21:03)
[2019-10-30] MEDS: ZANAFLEX PO SCH (21:03)
[2019-10-30] MEDS: CRESTOR TAB 10 MG PO SCH (21:03)
[2019-10-31] MEDS: NS 1000 ML 1,000 ML IV SCH ×5 (00:41→23:30)
[2019-10-31] MEDS: TORADOL 30 MG VIAL IVP SCH ×3 (02:23→19:47)
[2019-10-31] MEDS: MORPHINE SULFATE INJ 2 MG INJ IVP PRN ×2 (04:31→09:22)
[2019-10-31 05:15] LABS: ALANINE AMINOTRANSFERASE 13 Units/L (12-78); ALBUMIN 2.6 g/dL (3.4-5.0); ALKALINE PHOSPHATASE 50 Units/L (46-116); ASPARTATE AMINO TRANSFERASE 15 Units/L (15-37); BLOOD UREA NITROGEN 17 mg/dL (7-18); CALCIUM 8.4 mg/dL (8.5-10.1); CARBON DIOXIDE 27.3 mmol/L (21-32); CHLORIDE 104 mmol/L (98-107); COR CA(FOR HYPOALB) 9.5 mg/dL (8.5-10.1); COR NA(FOR HYPERGLY) 139 mmol/L (136-145); CREATININE 0.77 mg/dL (0.55-1.02); SODIUM 138 mmol/L (136-145); TOTAL PROTEIN 6.1 g/dL (6.4-8.2); eGFR NON BLACK RACES > 60 (>60)
[2019-10-31 05:25] LABS: BASOPHILS % (AUTO) 0.7 % (0.2-1.0); EOSINOPHILS # (AUTO) 0.1 x10^3/uL (0.0-0.2); EOSINOPHILS % (AUTO) 2.1 % (0.9-2.9); HEMATOCRIT 22.4 % (36.0-47.0); HEMOGLOBIN 7.2 g/dL (12.0-16.0); LYMPHOCYTES # (AUTO) 1.6 X10^3/uL (1.3-2.9); LYMPHOCYTES % (AUTO) 24.4 % (21.0-51.0); MEAN CORPUSCULAR HEMOGLOBIN 25.7 pg (27.0-34.0); MEAN CORPUSCULAR VOLUME 80.2 fL (80.0-100.0); MEAN PLATELET VOLUME 7.3 fL (7.4-11.0); MONOCYTES # (AUTO) 0.7 x10^3/uL (0.3-0.8); MONOCYTES % (AUTO) 10.3 % (0.0-13.0); NEUTROPHILS # (AUTO) 4.1 x10^3/uL (2.2-4.8); NEUTROPHILS % (AUTO) 62.5 % (42.0-75.0); PLATELET COUNT 300 X10^3/uL (150.0-450.0); RED BLOOD COUNT 2.79 X10^6/uL (3.5-5.4); RED CELL DISTRIBUTION WIDTH 16.9 % (11.6-16.5); WHITE BLOOD COUNT 6.6 X10^3/uL (3.6-10.0)
[2019-10-31 05:31] LABS: ANISOCYTOSIS SLIGHT; HYPOCHROMASIA 1+; PLATELET MORPHOLOGY COMMENT NORMAL (NORMAL)
[2019-10-31] MEDS: SYNTHROID 50 mcg TAB PO SCH (06:05)
[2019-10-31] MEDS: MYSOLINE PO SCH ×3 (06:05→21:15)
[2019-10-31] MEDS: BENICAR TAB 40 MG PO SCH ×2 (08:11→20:01)
[2019-10-31] MEDS: PEPCID TAB 20 MG PO SCH (08:12)
[2019-10-31] MEDS: PROTONIX TAB 40 MG PO SCH (08:12)
[2019-10-31] MEDS: ROCEPHIN VIAL 1 GRAM 1 G in NS 100 ML IV + SPIKE MINIBAG* 100 ML IV SCH (08:13)
[2019-10-31] MEDS: HEMOCYTE-PLUS PO SCH (08:13)
[2019-10-31] MEDS: NORVASC TAB 5 MG PO SCH (08:13)
[2019-10-31] MEDS: LOVENOX INJ 40 MG SYR SC SCH (08:13)
[2019-10-31] MEDS: LEVEMIR SC SCH ×2 (08:15→20:01)
[2019-10-31] MEDS: ASPIRIN EC 81 MG PO SCH (08:16)
[2019-10-31] MEDS: NAMENDA TAB 10 MG PO SCH ×2 (08:18→20:02)
[2019-10-31] MEDS: VITAMIN D3 25 mcg (1,000 UNITS) PO SCH (08:18)
[2019-10-31] MEDS: CYMBALTA PO SCH (08:38)
[2019-10-31] MEDS: XANAX PO PRN ×2 (08:38→19:49)
[2019-10-31] MEDS: NORCO 7.5/325 MG TAB PO PRN ×2 (08:46→17:49)
[2019-10-31] MEDS: VOLTAREN 1 % GEL MULTI DOSE TUBE TOP SCH ×2 (09:15→20:04)
[2019-10-31] MEDS ORDERED: NS 500 ML IV 500 ML IV ONE (09:45)
[2019-10-31] MEDS ORDERED: LASIX IVP ONE (09:45)
--- NOTE | 2019-10-31 11:46 | NM ---
HISTORYLUNG MASS, RIB PAIN, L1 compression fractureSTUDYNuclear medicine BONE SCAN WHOLE BODY, patient was injected with 25.6 millicuries of technetium labeled MDP with whole-body imaging performed.COMPARISONCT exams October 26, 2019FINDINGSMild increased activity is seen in the region of the L3 vertebral body that could be due to arthritic changes. No abnormal activity is seen in L1. No abnormal rib activity is seen. Arthritic type activity is seen in the right medial tibial plateau and in the distal femoral heads.IMPRESSIONNo suggestion of bony metastases. Likely mild arthritic changes in the mid lumbar spine and knees.Electronically signed by: Marco Antonio Villalta (October 31, 2019 11:44:50)
--- NOTE | 2019-10-31 11:57 | RAD ---
HISTORYABD PAIN chf htn dm gb sx OPEN HEARTSTUDYKUBCOMPARISONCT abdomen dated October 26, 2019FINDINGSEvaluation of the abdomen demonstrates a normal bowel gas pattern. No pathological soft tissue mass or calcification can be observed. The bony structures are grossly intact. There is mild disc space narrowing in the lumbar spine.IMPRESSIONNo evidence for acute abdominal pathology identified.Electronically signed by: HARPAL MCNEIL (October 31, 2019 11:55:50)
--- NOTE | 2019-10-31 11:58 | RAD ---
HISTORYSOBSTUDYCHEST, 1 VIEWCOMPARISONPrevious chest radiograph from 10/25/[address] from 10/26/2019FINDINGSGeneralized cardiomegaly is present. Since the previous exam, generalized interstitial opacity has developed bilaterally. While these findings may be related to interstitial edema, possibility of pulmonary infiltrates cannot be excluded. The thick walled cavitary mass noted on the previous CT is not clearly identified on today's study. No significant effusion on either side. Bony thorax is unremarkable.IMPRESSION1. Cardiomegaly2. Generalized interstitial opacity has developed bilaterally. These findings may be related to either interstitial edema or possible pulmonary infiltrates.Electronically signed by: NERY LIND (October 31, 2019 11:57:02)
[2019-10-31] MEDS: BENADRYL INJ 50 MG VIAL IVP PRN ×2 (14:21→20:45)
[2019-10-31] MEDS: TYLENOL 325 MG TAB PO PRN ×2 (14:22→20:46)
[2019-10-31] MEDS ORDERED: LASIX ONE (17:57)
[2019-10-31] MEDS: HumuLIN R SUBCUT PRN (18:02)
[2019-10-31] MEDS: SNACK - Diabetic Appropriate PO SCH (19:48)
[2019-10-31] MEDS: CRESTOR TAB 10 MG PO SCH (20:01)
[2019-10-31] MEDS: ZANAFLEX PO SCH (20:03)
[2019-10-31] MEDS: TRICOR TAB 145 MG PO SCH (20:03)
--- NOTE | 2019-10-31 22:13 | PCM.PROG ---
Progress Note - Progress Note for Day of Date of Exam: 10/31/19 - Subjective Subjective: IS BEING TREATED FOR RIGHT SIDE LUNG MASS, RUQ PAIN, URINARY TRACT INFECTION, AND UNCONTROLLED DIABETES. TODAY, SHE IS ALERT AND ORIENTED, LYING IN BED ON MORNING ROUNDS. SHE CONTINUES WITH RUQ PAIN, RIGHT SIDED RIB PAIN, AND SHORTNESS OF BREATH TODAY. SHE REPORTS INCREASED SHORTNESS OF BREATH AND WEAKNESS TODAY. ON EXAMINATION, HEART IS REGULAR IN RATE AND RHYTHM. BILATERAL LUNGS ARE NOTED WITH RHONCHI THROUGHOUT. ABDOMEN IS DISTENDED AND NOTED WITH RUQ TENDERNESS TO PALPATION. NORMAL BOWEL SOUNDS ARE NOTED IN ALL QUADRANTS. HER VITALS THIS MORNING ARE: 100.1-88-24-96%NC-147/70. LABS WERE OBTAINED. ABNORMAL LAB VALUES INCLUDE THE FOLLOWING: RBC 2.79, HGB 7.2, HCT 22.4, GLUCOSE 146, CALCIUM 8.4, TOTAL PROTEIN 6.1, ALBUMIN 2.6. URINE CULTURE IS POSITIVE FOR GROWTH OF E.COLI. STOOL CULTURE IS NEGATIVE. SHE IS CURRENTLY RECEIVING: NS AT [facility], ROCEPHIN 1G IV DAILY, LEVEMIR 10 UNITS SC BID, TORADOL 30MG IV Q8H, HUMULIN R SLIDING SCALE, LOVENOX 40MG SC DAILY, MORPHINE 1-2MG IV Q4H PRN PAIN, NORCO 7.5/325MG PO Q6H, AND HER HOME MEDICATIONS WERE RESUMED. SHE IS SCHEDULE FOR A BONE SCAN TODAY. WE WILL ALSO OBTAIN A CHEST XRAY AND A KUB. WE WILL TRANSFUSE 2 UNITS OF PRBC. OTHERWISE, WE PLAN TO FOLLOW UP WITH AM LABS AND CONTINUE TO MONITOR. - Past Medical Family Social History Past Med/Fam/Surg Hx: No changes since H&P Allergies: Allergies Penicillins Allergy (Verified 10/25/19 21:18) - Review of Systems ROS: No change since H&P - Vital Signs and I&O's Vital Signs: Temperature 98.0 F Pulse Rate [Right Brachial] 90 Pulse Rate [Left] 78 Pulse Rate 90 Respiratory Rate 21 Blood Pressure [Left Arm] 166/77 Blood Pressure [Right Arm] 159/73 Blood Pressure 132/62 O2 Sat by Pulse Oximetry 96 Intake and Output: Intake & Output 10/29/19 10/30/19 10/31/19 11/01/19 11:59 11:59 11:59 11:59 Intake Total 3650 / 3650 4231 / 4230 3117 / 3117 825 / 825 Balance 3649 / 3649 4230 / 4233116 / 3117 825 / 825 - Physical Exam Oriented: Normal Eyes: Normal Ear: Normal Nose: Normal Throat: Normal Respiratory: Generalized, Diminished Cardiovascular: Normal. negative: S3, S4, Murmur : Normal Auscultation: Bowel Sounds: Normal Tenderness: Diffuse, RUQ, Mild. negative: Rebound, Guarding, Rigidity Skin: Normal Musculoskeletal: Normal Psychiatric: Normal Mood Description: Calm Affect: Normal Speech Pattern: Clear, Appropriate - Laboratory and Diagnostics Result Diagrams: 10/31/19 04:08 10/31/19 04:08 Labs: 10/27/19 11:45 Stool Stool Culture - Final 10/27/19 11:45 Stool - Final 10/26/19 22:19 Urine,Clean Catch Urine Culture - Final Escherichia Coli Laboratory WBC 6.6 X10^3/uL (3.6-10.0) 10/31/19 04:08 RBC 2.79 X10^6/uL (3.5-5.4) L 10/31/19 04:08 Hgb 7.2 g/dL (12.0-16.0) L 10/31/19 04:08 Hct 22.4 % (36.0-47.0) L 10/31/19 04:08 MCV 80.2 fL (80.0-100.0) 10/31/19 04:08 MCH 25.7 pg (27.0-34.0) L 10/31/19 04:08 MCHC 32.0 g/dL (33.0-35.0) L 10/31/19 04:08 RDW 16.9 % (11.6-16.5) H 10/31/19 04:08 Plt Count 300 X10^3/uL (150.0-450.0) 10/31/19 04:08 Plt Count Comment Adequate (ADEQUATE) 10/31/19 04:08 MPV 7.3 fL (7.4-11.0) L 10/31/19 04:08 Neut % (Auto) 62.5 % (42.0-75.0) 10/31/19 04:08 Lymph % (Auto) 24.4 % (21.0-51.0) 10/31/19 04:08 [place] % (Auto) 10.3 % (0.0-13.0) 10/31/19 04:08 Eos % (Auto) 2.1 % (0.9-2.9) 10/31/19 04:08 Baso % (Auto) 0.7 % (0.2-1.0) 10/31/19 04:08 Neut # (Auto) 4.1 x10^3/uL (2.2-4.8) 10/31/19 04:08 Lymph # (Auto) 1.6 X10^3/uL (1.3-2.9) 10/31/19 04:08 [place] # (Auto) 0.7 x10^3/uL (0.3-0.8) 10/31/19 04:08 Eos # (Auto) 0.1 x10^3/uL (0.0-0.2) 10/31/19 04:08 Baso # (Auto) 0.0 X10^3/uL (0.0-0.1) 10/31/19 04:08 Absolute Nucleated RBC 0.0 /100WBC 10/31/19 04:08 Plt Morphology Comment Normal (NORMAL) 10/31/19 04:08 RBC Morphology Abnormal (NORMAL) A 10/31/19 04:08 Hypochromasia 1+ A 10/31/19 04:08 Anisocytosis Slight A 10/31/19 04:08 Microcytosis Slight A 10/27/19 05:31 Sodium 138 mmol/L (136-145) 10/31/19 04:08 Corrected Sodium 139 mmol/L (136-145) 10/31/19 04:08 Potassium 3.7 mmol/L (3.5-5.1) 10/31/19 04:08 Chloride 104 mmol/L (98-107) 10/31/19 04:08 Carbon Dioxide 27.3 mmol/L (21-32) 10/31/19 04:08 BUN 17 mg/dL (7-18) 10/31/19 04:08 Creatinine 0.77 mg/dL (0.55-1.02) 10/31/19 04:08 Est GFR (MDRD) Af Amer > 60 (>60) 10/31/19 04:08 Est GFR (MDRD) Non-Af > 60 (>60) 10/31/19 04:08 Glucose 146 mg/dL (65-99) H 10/31/19 04:08 POC Glucose (mg/dL) 199 mg/dL (65-99) H 10/28/19 12:08 Hemoglobin A1c 12.0 % 10/26/19 05:56 Calcium 8.4 mg/dL (8.5-10.1) L 10/31/19 04:08 Corrected Calcium 9.5 mg/dL (8.5-10.1) 10/31/19 04:08 Magnesium 1.7 mg/dL (1.7-2.9) 10/29/19 04:41 Total Bilirubin 0.20 mg/dL (0.2-1.0) 10/31/19 04:08 AST 15 Units/L (15-37) 10/31/19 04:08 ALT 13 Units/L (12-78) 10/31/19 04:08 Alkaline Phosphatase 50 Units/L (46-116) 10/31/19 04:08 Total Protein 6.1 g/dL (6.4-8.2) L 10/31/19 04:08 Albumin 2.6 g/dL (3.4-5.0) L 10/31/19 04:08 Globulin 3.5 g/dL (2.5-4.5) 10/31/19 04:08 Albumin/Globulin Ratio 0.7 Ratio (1.1-2.1) L 10/31/19 04:08 Amylase 54 Units/L (25-115) 10/27/19 05:31 Lipase 149 Units/L (73-393) 10/27/19 05:31 Specimen Type Clean catch urine 10/26/19 22:19 Urine Color Yellow (YELLOW) 10/26/19 22:19 Urine Appearance Slightly hazy (CLEAR) 10/26/19 22:19 Urine pH 6.0 (5.0 - 8.0) 10/26/19 22:19 Ur Specific [place] 1.010 (1.000-1.030) 10/26/19 22:19 Urine Protein 1+ (NEGATIVE) 10/26/19 22:19 Urine Glucose (UA) 4+ (NEGATIVE) 10/26/19 22:19 Urine Ketones Negative (NEGATIVE) 10/26/19 22:19 Urine Occult Blood 2+ (NEGATIVE) 10/26/19 22:19 Urine Nitrite Negative (NEGATIVE) 10/26/19 22:19 Urine Bilirubin Negative (NEGATIVE) 10/26/19 22:19 Urine Urobilinogen Normal (NORMAL) 10/26/19 22:19 Ur Leukocyte Esterase 3+ (NEGATIVE) 10/26/19 22:19 Urine RBC 3-5 /HPF (0-3) A 10/26/19 22:19 Urine WBC Tntc /HPF (0-5) A 10/26/19 22:19 Ur Squamous Epith Cells Few /HPF (NEGATIVE) 10/26/19 22:19 Urine Bacteria Trace /HPF (NEGATIVE) 10/26/19 22:19 Ur Culture Indicated? Yes/culture set up 10/26/19 22:19 Stool Description 55g formed black 10/27/19 11:45 Stool Description 55g formed black 10/27/19 11:45 Stl Occult Blood (IFOB) Positive (NEGATIVE) A 10/27/19 11:45 Stool for White Cells Negative (NEGATIVE) 10/27/19 11:45 Stl C. diff Tox B Gene Negative (NEGATIVE) 10/27/19 11:45 Stl C. diff [id number] Negative (NEGATIVE) 10/27/19 11:45 Stool H. pylori Ag Negative (NEGATIVE) 10/27/19 11:45 Cryptosporid parvum Ag Negative (NEGATIVE) 10/27/19 11:45 Giardia lamblia Ag Negative (NEGATIVE) 10/27/19 11:45 Blood Type O POSITIVE 10/31/19 11:22 Antibody Screen Negative 10/31/19 11:22 Crossmatch See Detail 10/31/19 11:22 - Plan (1) Abdominal pain Status: Acute Qualifiers: Abdominal location: right upper quadrant Qualified Code(s): R10.11 - Right upper quadrant pain Plan: NS AT 125 ML/HR, HUMULIN R SLIDING SCALE, LOVENOX 40MG SC DAILY, NORCO 7.5/325MG PO Q6H, MORPHINE 1-2MG IV Q4H PRN PAIN, TORADOL 30MG IV Q8H, OBTAIN KUB, CONTINUE TO MONITOR. 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
[2019-11-01] MEDS: MORPHINE SULFATE INJ 2 MG INJ IVP PRN ×3 (00:48→23:22)
[2019-11-01 01:37] LABS: HEMATOCRIT 28.9 % (36.0-47.0)
[2019-11-01 01:44] LABS: HEMOGLOBIN 9.4 g/dL (12.0-16.0)
[2019-11-01] MEDS: TORADOL 30 MG VIAL IVP SCH ×3 (02:55→18:10)
[2019-11-01] MEDS ORDERED: LASIX IVP ONE (04:12)
[2019-11-01] MEDS ORDERED: LASIX ONE (04:14)
[2019-11-01] MEDS: MYSOLINE PO SCH ×3 (05:16→21:03)
[2019-11-01] MEDS: SYNTHROID 50 mcg TAB PO SCH (05:16)
[2019-11-01 05:52] LABS: BASOPHILS % (AUTO) 0.6 % (0.2-1.0); EOSINOPHILS # (AUTO) 0.1 x10^3/uL (0.0-0.2); EOSINOPHILS % (AUTO) 1.8 % (0.9-2.9); HEMATOCRIT 31.9 % (36.0-47.0); HEMOGLOBIN 10.5 g/dL (12.0-16.0); LYMPHOCYTES # (AUTO) 1.6 X10^3/uL (1.3-2.9); LYMPHOCYTES % (AUTO) 21.2 % (21.0-51.0); MEAN CORPUSCULAR HEMOGLOBIN 26.7 pg (27.0-34.0); MEAN CORPUSCULAR HGB CONC 32.9 g/dL (33.0-35.0); MEAN CORPUSCULAR VOLUME 80.9 fL (80.0-100.0); MEAN PLATELET VOLUME 7.6 fL (7.4-11.0); MONOCYTES # (AUTO) 0.7 x10^3/uL (0.3-0.8); MONOCYTES % (AUTO) 9.4 % (0.0-13.0); NEUTROPHILS # (AUTO) 5.1 x10^3/uL (2.2-4.8); PLATELET COUNT 327 X10^3/uL (150.0-450.0); RED BLOOD COUNT 3.95 X10^6/uL (3.5-5.4); RED CELL DISTRIBUTION WIDTH 16.5 % (11.6-16.5); WHITE BLOOD COUNT 7.6 X10^3/uL (3.6-10.0)
[2019-11-01] MEDS: NS 1000 ML 1,000 ML IV SCH ×3 (06:01→22:12)
[2019-11-01 06:04] LABS: ALANINE AMINOTRANSFERASE 17 Units/L (12-78); ALBUMIN 2.9 g/dL (3.4-5.0); ALKALINE PHOSPHATASE 59 Units/L (46-116); ASPARTATE AMINO TRANSFERASE 19 Units/L (15-37); BLOOD UREA NITROGEN 19 mg/dL (7-18); CALCIUM 9.3 mg/dL (8.5-10.1); CARBON DIOXIDE 31.1 mmol/L (21-32); CHLORIDE 100 mmol/L (98-107); COR CA(FOR HYPOALB) 10.2 mg/dL (8.5-10.1); COR NA(FOR HYPERGLY) 139 mmol/L (136-145); CREATININE 0.94 mg/dL (0.55-1.02); SODIUM 137 mmol/L (136-145); TOTAL PROTEIN 7.1 g/dL (6.4-8.2); eGFR NON BLACK RACES > 60 (>60)
--- NOTE | 2019-11-01 06:41 | RAD ---
HISTORYShortness of breathSTUDYCHEST, 1 [id number]/11/2020 chest x-ray, 10/26/[address] with contrastFINDINGSPatient is status post median sternotomy and CABG. The heart is minimally enlarged. No congestive heart failure is noted. Interstitial lung changes are diffusely present not significantly different from the prior examination. Abnormal parenchymal density is present in a right perihilar distribution with a question of some central cavitation. This may represent the previously described cavitary mass lesion detected on the recent chest CT with contrast. This could represent cavitary malignancy, lung abscess, or cavitating fungal or other granulomatous disease. It is much better demonstrated on chest CT. No pleural effusions are identified. The bony thorax is unremarkable.IMPRESSIONInterval visualization of the patient superior segment right lower lobe cavitary mass described on the recent chest CTDiffuse interstitial lung changes not significantly different from the prior examinationCardiomegaly without congestive heart failureElectronically signed by: TARUN CURTIS (November 01, 2019 06:39:54)
[2019-11-01] MEDS ORDERED: MICRO K EXTEN CAP 10 MEQ PO PRN (07:34)
[2019-11-01] MEDS: PROTONIX TAB 40 MG PO SCH (08:03)
[2019-11-01] MEDS: PEPCID TAB 20 MG PO SCH (08:03)
[2019-11-01] MEDS: HEMOCYTE-PLUS PO SCH (08:03)
[2019-11-01] MEDS: CYMBALTA PO SCH (08:05)
[2019-11-01] MEDS: NAMENDA TAB 10 MG PO SCH ×2 (08:05→20:10)
[2019-11-01] MEDS: NORVASC TAB 5 MG PO SCH (08:06)
[2019-11-01] MEDS: XANAX PO PRN ×2 (08:06→20:11)
[2019-11-01] MEDS: VITAMIN D3 25 mcg (1,000 UNITS) PO SCH (08:06)
[2019-11-01] MEDS: ASPIRIN EC 81 MG PO SCH (08:11)
[2019-11-01] MEDS: BENICAR TAB 40 MG PO SCH ×2 (08:12→20:09)
[2019-11-01] MEDS: NORCO 7.5/325 MG TAB PO PRN ×3 (08:12→21:11)
[2019-11-01] MEDS: LOVENOX INJ 40 MG SYR SC SCH (08:13)
[2019-11-01] MEDS: LEVEMIR SC SCH ×2 (08:13→20:09)
[2019-11-01] MEDS: VOLTAREN 1 % GEL MULTI DOSE TUBE TOP SCH ×2 (08:14→20:10)
[2019-11-01] MEDS: ROCEPHIN VIAL 1 GRAM 1 G in NS 100 ML IV + SPIKE MINIBAG* 100 ML IV SCH (08:14)
--- NOTE | 2019-11-01 10:11 | PCM.PROG ---
Progress Note - Progress Note for Day of Date of Exam: 11/01/19 - Subjective Subjective: IS BEING TREATED FOR RIGHT SIDE LUNG MASS, RUQ PAIN, ANEMIA, URINARY TRACT INFECTION, AND UNCONTROLLED DIABETES. SHE RECEIVED TWO UNITS OF PRBC YESTERDAY. TODAY, SHE IS ALERT AND ORIENTED, LYING IN BED ON MORNING ROUNDS. SHE CONTINUES WITH RUQ PAIN, RIGHT SIDED RIB PAIN, AND SHORTNESS OF BREATH TODAY. SHE REPORTS THAT SHORTNESS OF BREATH AND PAIN HAVE SLIGHTLY IMPROVED TODAY. ON EXAMINATION, HEART IS REGULAR IN RATE AND RHYTHM. BILATERAL LUNGS ARE NOTED WITH RHONCHI THROUGHOUT. ABDOMEN IS DISTENDED AND NOTED WITH RUQ TENDERNESS TO PALPATION. NORMAL BOWEL SOUNDS ARE NOTED IN ALL QUADRANTS. HER VITALS THIS MORNING ARE: 99.9-112-20-92%NC-166/86. LABS WERE OBTAINED. ABNORMAL LAB VALUES INCLUDE THE FOLLOWING: HGB 10.5, HCT 31.9, BUN 19, GLUCOSE 172, ALBUMIN 2.9. A CHEST XRAY WAS OBTAINED THIS MORNING AND REVEALED: Interval visualization of the patient superior segment right lower lobe cavitary mass described on the recent chest CT. Diffuse interstitial lung changes not si gnificantly different from the prior examination. Cardiomegaly without congestive heart failure. A KUB WAS OBTAINED YESTERDAY AND REVEALED: Evaluation of the abdomen demonstrates a normal bowel gas pattern. No pathological soft tissue mass or calcification can be observed. The bony structures are grossly intact. There is mild disc space narrowing in the lumbar spine. A BONE SCAN WAS OBTAINED AND REVEALED: Mild increased activity is seen in the region of the L3 vertebral body that could be due to arthritic changes. No abnormal activity is seen in L1. No abnormal rib activity is seen. Arthritic type activity is seen in the right medial tibial plateau and in the distal femoral heads. URINE CULTURE IS POSITIVE FOR GROWTH OF E.COLI. STOOL CULTURE IS NEGATIVE. SHE IS CURRENTLY RECEIVING: NS AT [facility], ROCEPHIN 1G IV DAILY, LEVEMIR 10 UNITS SC BID, TORADOL 30MG IV Q8H, HUMULIN R SLIDING SCALE, LOVENOX 40MG SC DAILY, MORPHINE 1-2MG IV Q4H PRN PAIN, NORCO 7.5/325MG PO Q6H, AND HER HOME MEDICATIONS WERE RESUMED. WE WILL SCHEDULE HER A FOLLOW-UP WITH , RESOURCING CONSULTANT DUE TO LUNG MASS. OT HERWISE, WE PLAN TO FOLLOW UP WITH AM LABS AND CONTINUE TO MONITOR. - Past Medical Family Social History Past Med/Fam/Surg Hx: No changes since H&P Allergies: Allergies Penicillins Allergy (Verified 10/25/19 21:18) - Review of Systems ROS: No change since H&P - Vital Signs and I&O's Vital Signs: Temperature 99.9 F Pulse Rate [Right Brachial] 75 Pulse Rate [Left] 112 Pulse Rate 90 Respiratory Rate 20 Blood Pressure [Left Arm] 166/86 Blood Pressure [Right Arm] 159/73 Blood Pressure 132/62 O2 Sat by Pulse Oximetry 92 Intake and Output: Intake & Output 10/29/19 10/30/19 10/31/19 11/01/19 11:59 11:59 11:59 11:59 Intake Total 3650 / 3650 4231 / 4231 3117 / 3117 1825 / 1825 Balance 3650 / 3650 4231 / 4231 3117 / 3117 1825 / 1825 - Physical Exam Oriented: Normal Eyes: Normal Ear: Normal Nose: Normal Throat: Normal Respiratory: Generalized, Diminished Cardiovascular: Normal. negative: S3, S4, Murmur : Normal Auscultation: Bowel Sounds: Normal Palpation: Normal Tenderness: Diffuse, RUQ, Mild. negative: Rebound, Guarding, Rigidity Skin: Normal Musculoskeletal: Normal Psychiatric: Normal Mood Description: Calm Affect: Normal Speech Pattern: Clear, Appropriate - Laboratory and Diagnostics Result Diagrams: 11/01/19 05:24 11/01/19 05:24 Labs: 10/27/19 11:45 Stool Stool Culture - Final 10/27/19 11:45 Stool - Final 10/26/19 22:19 Urine,Clean Catch Urine Culture - Final Escherichia Coli Laboratory WBC 7.6 X10^3/uL (3.6-10.0) 11/01/19 05:24 RBC 3.95 X10^6/uL (3.5-5.4) 11/01/19 05:24 Hgb 10.5 g/dL (12.0-16.0) L 11/01/19 05:24 Hct 31.9 % (36.0-47.0) L 11/01/19 05:24 MCV 80.9 fL (80.0-100.0) 11/01/19 05:24 MCH 26.7 pg (27.0-34.0) L 11/01/19 05:24 MCHC 32.9 g/dL (33.0-35.0) L 11/01/19 05:24 RDW 16.5 % (11.6-16.5) 11/01/19 05:24 Plt Count 327 X10^3/uL (150.0-450.0) 11/01/19 05:24 Plt Count Comment Adequate (ADEQUATE) 10/31/19 04:08 MPV 7.6 fL (7.4-11.0) 11/01/19 05:24 Neut % (Auto) 67.0 % (42.0-75.0) 11/01/19 05:24 Lymph % (Auto) 21.2 % (21.0-51.0) 11/01/19 05:24 [place] % (Auto) 9.4 % (0.0-13.0) 11/01/19 05:24 Eos % (Auto) 1.8 % (0.9-2.9) 11/01/19 05:24 Baso % (Auto) 0.6 % (0.2-1.0) 11/01/19 05:24 Neut # (Auto) 5.1 x10^3/uL (2.2-4.8) H 11/01/19 05:24 Lymph # (Auto) 1.6 X10^3/uL (1.3-2.9) 11/01/19 05:24 [place] # (Auto) 0.7 x10^3/uL (0.3-0.8) 11/01/19 05:24 Eos # (Auto) 0.1 x10^3/uL (0.0-0.2) 11/01/19 05:24 Baso # (Auto) 0.0 X10^3/uL (0.0-0.1) 11/01/19 05:24 Absolute Nucleated RBC 0.1 /100WBC 11/01/19 05:24 Plt Morphology Comment Normal (NORMAL) 10/31/19 04:08 RBC Morphology Abnormal (NORMAL) A 10/31/19 04:08 Hypochromasia 1+ A 10/31/19 04:08 Anisocytosis Slight A 10/31/19 04:08 Microcytosis Slight A 10/27/19 05:31 Sodium 137 mmol/L (136-145) 11/01/19 05:24 Corrected Sodium 139 mmol/L (136-145) 11/01/19 05:24 Potassium 3.6 mmol/L (3.5-5.1) 11/01/19 05:24 Chloride 100 mmol/L (98-107) 11/01/19 05:24 Carbon Dioxide 31.1 mmol/L (21-32) 11/01/19 05:24 BUN 19 mg/dL (7-18) H 11/01/19 05:24 Creatinine 0.94 mg/dL (0.55-1.02) 11/01/19 05:24 Est GFR (MDRD) Af Amer > 60 (>60) 11/01/19 05:24 Est GFR (MDRD) Non-Af > 60 (>60) 11/01/19 05:24 Glucose 172 mg/dL (65-99) H 11/01/19 05:24 POC Glucose (mg/dL) 199 mg/dL (65-99) H 10/28/19 12:08 Hemoglobin A1c 12.0 % 10/26/19 05:56 Calcium 9.3 mg/dL (8.5-10.1) 11/01/19 05:24 Corrected Calcium 10.2 mg/dL (8.5-10.1) H 11/01/19 05:24 Magnesium 1.7 mg/dL (1.7-2.9) 10/29/19 04:41 Total Bilirubin 0.30 mg/dL (0.2-1.0) 11/01/19 05:24 AST 19 Units/L (15-37) 11/01/19 05:24 ALT 17 Units/L (12-78) 11/01/19 05:24 Alkaline Phosphatase 59 Units/L (46-116) 11/01/19 05:24 Total Protein 7.1 g/dL (6.4-8.2) 11/01/19 05:24 Albumin 2.9 g/dL (3.4-5.0) L 11/01/19 05:24 Globulin 4.2 g/dL (2.5-4.5) 11/01/19 05:24 Albumin/Globulin Ratio 0.7 Ratio (1.1-2.1) L 11/01/19 05:24 Amylase 54 Units/L (25-115) 10/27/19 05:31 Lipase 149 Units/L (73-393) 10/27/19 05:31 Specimen Type Clean catch urine 10/26/19 22:19 Urine Color Yellow (YELLOW) 10/26/19 22:19 Urine Appearance Slightly hazy (CLEAR) 10/26/19 22:19 Urine pH 6.0 (5.0 - 8.0) 10/26/19 22:19 Ur Specific [place] 1.010 (1.000-1.030) 10/26/19 22:19 Urine Protein 1+ (NEGATIVE) 10/26/19 22:19 Urine Glucose (UA) 4+ (NEGATIVE) 10/26/19 22:19 Urine Ketones Negative (NEGATIVE) 10/26/19 22:19 Urine Occult Blood 2+ (NEGATIVE) 10/26/19 22:19 Urine Nitrite Negative (NEGATIVE) 10/26/19 22:19 Urine Bilirubin Negative (NEGATIVE) 10/26/19 22:19 Urine Urobilinogen Normal (NORMAL) 10/26/19 22:19 Ur Leukocyte Esterase 3+ (NEGATIVE) 10/26/19 22:19 Urine RBC 3-5 /HPF (0-3) A 10/26/19 22:19 Urine WBC Tntc /HPF (0-5) A 10/26/19 22:19 Ur Squamous Epith Cells Few /HPF (NEGATIVE) 10/26/19 22:19 Urine Bacteria Trace /HPF (NEGATIVE) 10/26/19 22:19 Ur Culture Indicated? Yes/culture set up 10/26/19 22:19 Stool Description 55g formed black 10/27/19 11:45 Stool Description 55g formed black 10/27/19 11:45 Stl Occult Blood (IFOB) Positive (NEGATIVE) A 10/27/19 11:45 Stool for White Cells Negative (NEGATIVE) 10/27/19 11:45 Stl C. diff Tox B Gene Negative (NEGATIVE) 10/27/19 11:45 Stl C. diff [id number] Negative (NEGATIVE) 10/27/19 11:45 Stool H. pylori Ag Negative (NEGATIVE) 10/27/19 11:45 Cryptosporid parvum Ag Negative (NEGATIVE) 10/27/19 11:45 Giardia lamblia Ag Negative (NEGATIVE) 10/27/19 11:45 Blood Type O POSITIVE 10/31/19 11:22 Antibody Screen Negative 10/31/19 11:22 Crossmatch See Detail 10/31/19 11:22 - Plan (1) Abdominal pain Status: Acute Qualifiers: Abdominal location: right upper quadrant Qualified Code(s): R10.11 - Right upper quadrant pain Plan: NS AT 20 ML/HR, HUMULIN R SLIDING SCALE, LOVENOX 40MG SC DAILY, NORCO 7.5/325MG PO Q6H, MORPHINE 1-2MG IV Q4H PRN PAIN, TORADOL 30MG IV Q8H, CONTINUE TO MONITOR. (2) Urinary tract infection Status: Acute Qualifiers: Urinary tract infection type: acute cystitis Hematuria presence: without hematuria Qualified Code(s): N30.00 - Acute cystitis without hematuria Plan: ROCEPHIN 1G IV DAILY (3) Uncontrolled diabetes mellitus Status: Acute Qualifiers: Diabetes mellitus type: type 2 Glycemic state: with hyperglycemia Qualified Code(s): E11.65 - Type 2 diabetes mellitus with hyperglycemia (4) Lung mass Status: Acute (5) Anemia Status: Acute Qualifiers: Anemia type: iron deficiency Iron deficiency anemia type: chronic blood loss Qualified Code(s): D50.0 - Iron deficiency anemia secondary to blood loss (chronic) Plan: CONTINUE TO MONITOR
[2019-11-01] MEDS: HumuLIN R SUBCUT PRN (12:19)
[2019-11-01] MEDS: SNACK - Diabetic Appropriate PO SCH (20:09)
[2019-11-01] MEDS: CRESTOR TAB 10 MG PO SCH (20:09)
[2019-11-01] MEDS: TRICOR TAB 145 MG PO SCH (20:10)
[2019-11-01] MEDS: ZANAFLEX PO SCH (20:10)
[2019-11-02] MEDS: TORADOL 30 MG VIAL IVP SCH (02:20)
[2019-11-02] MEDS: MORPHINE SULFATE INJ 2 MG INJ IVP PRN (05:25)
[2019-11-02] MEDS: MYSOLINE PO SCH ×3 (05:26→21:11)
[2019-11-02] MEDS: SYNTHROID 50 mcg TAB PO SCH (05:27)
[2019-11-02 05:40] LABS: BASOPHILS % (AUTO) 0.7 % (0.2-1.0); EOSINOPHILS # (AUTO) 0.2 x10^3/uL (0.0-0.2); EOSINOPHILS % (AUTO) 3.1 % (0.9-2.9); HEMATOCRIT 32.7 % (36.0-47.0); HEMOGLOBIN 10.7 g/dL (12.0-16.0); LYMPHOCYTES # (AUTO) 1.8 X10^3/uL (1.3-2.9); LYMPHOCYTES % (AUTO) 30.9 % (21.0-51.0); MEAN CORPUSCULAR HEMOGLOBIN 26.4 pg (27.0-34.0); MEAN CORPUSCULAR HGB CONC 32.7 g/dL (33.0-35.0); MEAN CORPUSCULAR VOLUME 80.8 fL (80.0-100.0); MEAN PLATELET VOLUME 7.4 fL (7.4-11.0); MONOCYTES # (AUTO) 0.6 x10^3/uL (0.3-0.8); MONOCYTES % (AUTO) 9.9 % (0.0-13.0); NEUTROPHILS # (AUTO) 3.2 x10^3/uL (2.2-4.8); NEUTROPHILS % (AUTO) 55.4 % (42.0-75.0); PLATELET COUNT 338 X10^3/uL (150.0-450.0); RED BLOOD COUNT 4.05 X10^6/uL (3.5-5.4); RED CELL DISTRIBUTION WIDTH 16.8 % (11.6-16.5); WHITE BLOOD COUNT 5.7 X10^3/uL (3.6-10.0)
[2019-11-02 05:55] LABS: ALANINE AMINOTRANSFERASE 16 Units/L (12-78); ALKALINE PHOSPHATASE 57 Units/L (46-116); ASPARTATE AMINO TRANSFERASE 14 Units/L (15-37); BLOOD UREA NITROGEN 24 mg/dL (7-18); CALCIUM 9.4 mg/dL (8.5-10.1); CARBON DIOXIDE 32.2 mmol/L (21-32); CHLORIDE 101 mmol/L (98-107); COR CA(FOR HYPOALB) 10.2 mg/dL (8.5-10.1); COR NA(FOR HYPERGLY) 140 mmol/L (136-145); CREATININE 0.96 mg/dL (0.55-1.02); SODIUM 139 mmol/L (136-145); TOTAL PROTEIN 7.4 g/dL (6.4-8.2); eGFR NON BLACK RACES 59 (>60)
[2019-11-02] MEDS: NS 1000 ML 1,000 ML IV SCH ×2 (06:22→15:18)
--- NOTE | 2019-11-02 06:51 | RAD ---
HISTORYShortness of breathSTUDYCHEST, 1 [id number]/12/2020FINDINGSPatient is status post median sternotomy and CABG. The heart is mildly enlarged. No congestive heart failure is noted. Diffuse interstitial lung changes are present and stable. Right perihilar density the prior examination is less well-defined on today's examination. There is still question of central cavitation. 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 It is much better visualized on CT. Differential diagnosis is unchanged. No pleural effusions are identified. Bony thorax is unremarkable.IMPRESSIONPatient's superior segment right lower lobe cavitary mass is not as well demonstrated on this examination as on the prior examinationInterstitial lung changes, stableCardiomegaly without congestive heart failureElectronically signed by: TARUN CURTIS (November 02, 2019 06:50:30)
[2019-11-02] MEDS: NAMENDA TAB 10 MG PO SCH ×2 (08:31→20:17)
[2019-11-02] MEDS: VITAMIN D3 25 mcg (1,000 UNITS) PO SCH (08:32)
[2019-11-02] MEDS: BENICAR TAB 40 MG PO SCH ×2 (08:32→20:14)
[2019-11-02] MEDS: HEMOCYTE-PLUS PO SCH (08:32)
[2019-11-02] MEDS: PEPCID TAB 20 MG PO SCH (08:33)
[2019-11-02] MEDS: ASPIRIN EC 81 MG PO SCH (08:33)
[2019-11-02] MEDS: NORVASC TAB 5 MG PO SCH (08:34)
[2019-11-02] MEDS: PROTONIX TAB 40 MG PO SCH (08:34)
[2019-11-02] MEDS: VOLTAREN 1 % GEL MULTI DOSE TUBE TOP SCH ×2 (08:35→20:18)
[2019-11-02] MEDS: NORCO 7.5/325 MG TAB PO PRN (08:36)
[2019-11-02] MEDS: LEVEMIR SC SCH ×2 (08:59→20:17)
[2019-11-02] MEDS: CYMBALTA PO SCH (09:15)
[2019-11-02] MEDS: LOVENOX INJ 40 MG SYR SC SCH (09:15)
[2019-11-02] MEDS: XANAX PO PRN ×2 (09:17→20:20)
[2019-11-02] MEDS: CELEBREX PO SCH (09:47)
[2019-11-02] MEDS: CIPRO TAB 500 MG PO SCH ×3 (09:47→21:00)
[2019-11-02] MEDS: PERCOCET TAB 5/325 MG PO SCH ×4 (09:48→20:18)
--- NOTE | 2019-11-02 10:05 | PCM.PROG ---
Progress Note - Progress Note for Day of Date of Exam: 11/02/19 - Subjective Subjective: IS BEING TREATED FOR RIGHT SIDE LUNG MASS, RUQ PAIN, ANEMIA, URINARY TRACT INFECTION, AND UNCONTROLLED DIABETES. SHE HAS RECEIVED TWO UNITS OF PRBC SINCE ADMISSION. TODAY, SHE IS ALERT AND ORIENTED, LYING IN BED ON MORNING ROUNDS. SHE CONTINUES WITH RUQ PAIN, RIGHT SIDED RIB PAIN, AND SHORTNESS OF BREATH TODAY. SHE REPORTS THAT SHORTNESS OF BREATH AND PAIN HAVE SLIGHTLY IMPROVED TODAY. ON EXAMINATION, HEART IS REGULAR IN RATE AND RHYTHM. BILATERAL LUNGS ARE NOTED WITH RHONCHI THROUGHOUT. ABDOMEN IS DISTENDED AND NOTED WITH RUQ TENDERNESS TO PALPATION. NORMAL BOWEL SOUNDS ARE NOTED IN ALL QUADRANTS. HER VITALS THIS MORNING ARE: 98.2-79-18-91%NC-165/78. LABS WERE OBTAINED. ABNORMAL LAB VALUES INCLUDE THE FOLLOWING: HGB 10.7, HCT 32.7, CARBON DIOXIDE 32.2, BUN 24, GLUCOSE 148, AST 14, ALBUMIN 3.0. A CHEST XRAY WAS OBTAINED THIS MORNING AND REVEALED: Patient's superior segment right lower lobe cavitary mass is not as well demonstrated on this examination as on the prior examination. Interstitial lung changes, stable. Cardiomegaly without congestive heart failure. URINE CULTURE IS POSITIVE FOR GROWTH OF E.COLI. STOOL CULTURE IS NEGATIVE. HE IV INFILTRATED THROUGHOUT THE NIGHT AND STAFF HAS BEEN UNABLE TO RESTART. WE WILL DISCONTINUE ALL IV MEDICATIONS. WE WILL START CIPRO 500MG IV Q12H, PERCOCET 5/325MG 1.5 TABS QID, CELEBREX 200MG PO BID, AND COLACE 200MG PO HS. OTHERWISE, WE WILL CONTINUE WITH CURRENT PLAN OF CARE. WE WILL SCHEDULE HER A FOLLOW-UP WITH , [facility] [employer] DUE TO LUNG MASS. OTHERWISE, WE PLAN TO FOLLOW UP WITH AM LABS AND CONTINUE TO MONITOR. - Past Medical Family Social History Past Med/Fam/Surg Hx: No changes since H&P Allergies: Allergies Penicillins Allergy (Verified 10/25/19 21:18) - Review of Systems ROS: No change since H&P - Vital Signs and I&O's Vital Signs: Temperature 98.2 F Pulse Rate [Right Brachial] 79 Pulse Rate [Left] 72 Pulse Rate 90 Respiratory Rate 20 Blood Pressure [Left Arm] 165/78 Blood Pressure [Right Arm] 159/73 Blood Pressure 132/62 O2 Sat by Pulse Oximetry 91 Intake and Output: Intake & Output 10/30/19 10/31/19 11/01/19 11/02/19 11:59 11:59 11:59 11:59 Intake Total 4231 / 4231 3117 / 3117 1825 / 1825 186 / 1864 Balance 4231 / 4231 3117 / 3117 1824 / [id number] / 1863 - Physical Exam Oriented: Normal Eyes: Normal Ear: Normal Nose: Normal Throat: Normal Respiratory: Generalized, Diminished Cardiovascular: Normal. negative: S3, S4, Murmur : Normal Auscultation: Bowel Sounds: Normal Palpation: Normal Tenderness: Diffuse, RUQ, Mild. negative: Rebound, Guarding, Rigidity Skin: Normal Musculoskeletal: Normal Psychiatric: Normal Mood Description: Calm Affect: Normal Speech Pattern: Clear, Appropriate - Laboratory and Diagnostics Result Diagrams: 11/02/19 05:20 11/02/19 05:20 Labs: 10/27/19 11:45 Stool Stool Culture - Final 10/27/19 11:45 Stool - Final 10/26/19 22:19 Urine,Clean Catch Urine Culture - Final Escherichia Coli Laboratory WBC 5.7 X10^3/uL (3.6-10.0) 11/02/19 05:20 RBC 4.05 X10^6/uL (3.5-5.4) 11/02/19 05:20 Hgb 10.7 g/dL (12.0-16.0) L 11/02/19 05:20 Hct 32.7 % (36.0-47.0) L 11/02/19 05:20 MCV 80.8 fL (80.0-100.0) 11/02/19 05:20 MCH 26.4 pg (27.0-34.0) L 11/02/19 05:20 MCHC 32.7 g/dL (33.0-35.0) L 11/02/19 05:20 RDW 16.8 % (11.6-16.5) H 11/02/19 05:20 Plt Count 338 X10^3/uL (150.0-450.0) 11/02/19 05:20 Plt Count Comment Adequate (ADEQUATE) 10/31/19 04:08 MPV 7.4 fL (7.4-11.0) 11/02/19 05:20 Neut % (Auto) 55.4 % (42.0-75.0) 11/02/19 05:20 Lymph % (Auto) 30.9 % (21.0-51.0) 11/02/19 05:20 [place] % (Auto) 9.9 % (0.0-13.0) 11/02/19 05:20 Eos % (Auto) 3.1 % (0.9-2.9) H 11/02/19 05:20 Baso % (Auto) 0.7 % (0.2-1.0) 11/02/19 05:20 Neut # (Auto) 3.2 x10^3/uL (2.2-4.8) 11/02/19 05:20 Lymph # (Auto) 1.8 X10^3/uL (1.3-2.9) 11/02/19 05:20 [place] # (Auto) 0.6 x10^3/uL (0.3-0.8) 11/02/19 05:20 Eos # (Auto) 0.2 x10^3/uL (0.0-0.2) 11/02/19 05:20 Baso # (Auto) 0.0 X10^3/uL (0.0-0.1) 11/02/19 05:20 Absolute Nucleated RBC 0.1 /100WBC 11/02/19 05:20 Plt Morphology Comment Normal (NORMAL) 10/31/19 04:08 RBC Morphology Abnormal (NORMAL) A 10/31/19 04:08 Hypochromasia 1+ A 10/31/19 04:08 Anisocytosis Slight A 10/31/19 04:08 Microcytosis Slight A 10/27/19 05:31 Sodium 139 mmol/L (136-145) 11/02/19 05:20 Corrected Sodium 140 mmol/L (136-145) 11/02/19 05:20 Potassium 3.9 mmol/L (3.5-5.1) 11/02/19 05:20 Chloride 101 mmol/L (98-107) 11/02/19 05:20 Carbon Dioxide 32.2 mmol/L (21-32) H 11/02/19 05:20 BUN 24 mg/dL (7-18) H 11/02/19 05:20 Creatinine 0.96 mg/dL (0.55-1.02) 11/02/19 05:20 Est GFR (MDRD) Af Amer > 60 (>60) 11/02/19 05:20 Est GFR (MDRD) Non-Af 59 (>60) 11/02/19 05:20 Glucose 148 mg/dL (65-99) H 11/02/19 05:20 POC Glucose (mg/dL) 199 mg/dL (65-99) H 10/28/19 12:08 Hemoglobin A1c 12.0 % 10/26/19 05:56 Calcium 9.4 mg/dL (8.5-10.1) 11/02/19 05:20 Corrected Calcium 10.2 mg/dL (8.5-10.1) H 11/02/19 05:20 Magnesium 1.7 mg/dL (1.7-2.9) 10/29/19 04:41 Total Bilirubin 0.30 mg/dL (0.2-1.0) 11/02/19 05:20 AST 14 Units/L (15-37) L 11/02/19 05:20 ALT 16 Units/L (12-78) 11/02/19 05:20 Alkaline Phosphatase 57 Units/L (46-116) 11/02/19 05:20 Total Protein 7.4 g/dL (6.4-8.2) 11/02/19 05:20 Albumin 3.0 g/dL (3.4-5.0) L 11/02/19 05:20 Globulin 4.4 g/dL (2.5-4.5) 11/02/19 05:20 Albumin/Globulin Ratio 0.7 Ratio (1.1-2.1) L 11/02/19 05:20 Amylase 54 Units/L (25-115) 10/27/19 05:31 Lipase 149 Units/L (73-393) 10/27/19 05:31 Specimen Type Clean catch urine 10/26/19 22:19 Urine Color Yellow (YELLOW) 10/26/19 22:19 Urine Appearance Slightly hazy (CLEAR) 10/26/19 22:19 Urine pH 6.0 (5.0 - 8.0) 10/26/19 22:19 Ur Specific [place] 1.010 (1.000-1.030) 10/26/19 22:19 Urine Protein 1+ (NEGATIVE) 10/26/19 22:19 Urine Glucose (UA) 4+ (NEGATIVE) 10/26/19 22:19 Urine Ketones Negative (NEGATIVE) 10/26/19 22:19 Urine Occult Blood 2+ (NEGATIVE) 10/26/19 22:19 Urine Nitrite Negative (NEGATIVE) 10/26/19 22:19 Urine Bilirubin Negative (NEGATIVE) 10/26/19 22:19 Urine Urobilinogen Normal (NORMAL) 10/26/19 22:19 Ur Leukocyte Esterase 3+ (NEGATIVE) 10/26/19 22:19 Urine RBC 3-5 /HPF (0-3) A 10/26/19 22:19 Urine WBC Tntc /HPF (0-5) A 10/26/19 22:19 Ur Squamous Epith Cells Few /HPF (NEGATIVE) 10/26/19 22:19 Urine Bacteria Trace /HPF (NEGATIVE) 10/26/19 22:19 Ur Culture Indicated? Yes/culture set up 10/26/19 22:19 Stool Description 55g formed black 10/27/19 11:45 Stool Description 55g formed black 10/27/19 11:45 Stl Occult Blood (IFOB) Positive (NEGATIVE) A 10/27/19 11:45 Stool for White Cells Negative (NEGATIVE) 10/27/19 11:45 Stl C. diff Tox B Gene Negative (NEGATIVE) 10/27/19 11:45 Stl C. diff [id number] Negative (NEGATIVE) 10/27/19 11:45 Stool H. pylori Ag Negative (NEGATIVE) 10/27/19 11:45 Cryptosporid parvum Ag Negative (NEGATIVE) 10/27/19 11:45 Giardia lamblia Ag Negative (NEGATIVE) 10/27/19 11:45 Blood Type O POSITIVE 10/31/19 11:22 Antibody Screen Negative 10/31/19 11:22 Crossmatch See Detail 10/31/19 11:22 - Plan (1) Abdominal pain Status: Acute Qualifiers: Abdominal location: right upper quadrant Qualified Code(s): R10.11 - Right upper quadrant pain Plan: HUMULIN R SLIDING SCALE, LOVENOX 40MG SC DAILY, PERCOCET 5/325MG 1.5 TAB QID, CELEBREX 200MG PO BID, CONTINUE TO MONITOR. (2) Urinary tract infection Status: Acute Qualifiers: Urinary tract infection type: acute cystitis Hematuria presence: without hematuria Qualified Code(s): N30.00 - Acute cystitis without hematuria Plan: CIPRO 500MG IV BID (3) Uncontrolled diabetes mellitus Status: Acute Qualifiers: Diabetes mellitus type: type 2 Glycemic state: with hyperglycemia Qualified Code(s): E11.65 - Type 2 diabetes mellitus with hyperglycemia (4) Lung mass Status: Acute (5) Anemia Status: Acute Qualifiers: Anemia type: iron deficiency Iron deficiency anemia type: chronic blood loss Qualified Code(s): D50.0 - Iron deficiency anemia secondary to blood loss (chronic) Plan: CONTINUE TO MONITOR
[2019-11-02] MEDS: HumuLIN R SUBCUT PRN ×2 (12:35→15:55)
[2019-11-02] MEDS: SNACK - Diabetic Appropriate PO SCH (20:14)
[2019-11-02] MEDS: CRESTOR TAB 10 MG PO SCH (20:16)
[2019-11-02] MEDS: TRICOR TAB 145 MG PO SCH (20:18)
[2019-11-02] MEDS: ZANAFLEX PO SCH (20:19)
[2019-11-02] MEDS ORDERED: COLACE CAP 100 MG PO SCH (21:00)
[2019-11-03] MEDS: TYLENOL 325 MG TAB PO PRN (02:42)
[2019-11-03] MEDS: SYNTHROID 50 mcg TAB PO SCH (05:03)
[2019-11-03] MEDS: MYSOLINE PO SCH ×2 (05:03→15:00)
[2019-11-03] MEDS: HumuLIN R SUBCUT PRN (05:51)
[2019-11-03 06:04] LABS: ALANINE AMINOTRANSFERASE 18 Units/L (12-78); ALKALINE PHOSPHATASE 59 Units/L (46-116); ASPARTATE AMINO TRANSFERASE 15 Units/L (15-37); BLOOD UREA NITROGEN 25 mg/dL (7-18); CALCIUM 9.6 mg/dL (8.5-10.1); CARBON DIOXIDE 28.8 mmol/L (21-32); CHLORIDE 101 mmol/L (98-107); COR CA(FOR HYPOALB) 10.4 mg/dL (8.5-10.1); COR NA(FOR HYPERGLY) 139 mmol/L (136-145); CREATININE 0.93 mg/dL (0.55-1.02); SODIUM 137 mmol/L (136-145); TOTAL PROTEIN 7.2 g/dL (6.4-8.2); eGFR NON BLACK RACES > 60 (>60)
[2019-11-03 06:05] LABS: BASOPHILS % (AUTO) 0.8 % (0.2-1.0); EOSINOPHILS # (AUTO) 0.2 x10^3/uL (0.0-0.2); EOSINOPHILS % (AUTO) 3.4 % (0.9-2.9); HEMATOCRIT 31.7 % (36.0-47.0); HEMOGLOBIN 10.3 g/dL (12.0-16.0); LYMPHOCYTES # (AUTO) 1.4 X10^3/uL (1.3-2.9); LYMPHOCYTES % (AUTO) 24.7 % (21.0-51.0); MEAN CORPUSCULAR HEMOGLOBIN 26.1 pg (27.0-34.0); MEAN CORPUSCULAR HGB CONC 32.5 g/dL (33.0-35.0); MEAN CORPUSCULAR VOLUME 80.4 fL (80.0-100.0); MEAN PLATELET VOLUME 7.1 fL (7.4-11.0); MONOCYTES # (AUTO) 0.5 x10^3/uL (0.3-0.8); MONOCYTES % (AUTO) 8.9 % (0.0-13.0); NEUTROPHILS # (AUTO) 3.6 x10^3/uL (2.2-4.8); NEUTROPHILS % (AUTO) 62.2 % (42.0-75.0); PLATELET COUNT 362 X10^3/uL (150.0-450.0); RED BLOOD COUNT 3.95 X10^6/uL (3.5-5.4); RED CELL DISTRIBUTION WIDTH 16.7 % (11.6-16.5); WHITE BLOOD COUNT 5.8 X10^3/uL (3.6-10.0)
--- NOTE | 2019-11-03 06:18 | RAD ---
HISTORYShortness of breathSTUDYCHEST, 1 [id number] is status post median sternotomy and CABG. The heart is mildly enlarged. No congestive heart failure is noted. Much better visualized on today's examination is the cavitary mass in the superior segment of the right lower lobe previously best demonstrated on CT. Neoplasm must be excluded. The remainder of the lung bond are clear. Bony thorax is unremarkable. No pleural effusions are identified.IMPRESSIONNo change right lower lobe cavitary mass lesion which could represent cavitary neoplasm, lung abscess, cavitary granulomatous disease.Mild cardiomegaly without congestive heart failureElectronically signed by: TARUN CURTIS (November 03, 2019 06:16:56)
[2019-11-03] MEDS: PERCOCET TAB 5/325 MG PO SCH ×2 (08:45→12:00)
[2019-11-03] MEDS: LEVEMIR SC SCH (08:53)
[2019-11-03] MEDS: BENICAR TAB 40 MG PO SCH (08:56)
[2019-11-03] MEDS: LOVENOX INJ 40 MG SYR SC SCH (08:56)
[2019-11-03] MEDS: CIPRO TAB 500 MG PO SCH (08:58)
[2019-11-03] MEDS: PROTONIX TAB 40 MG PO SCH (08:59)
[2019-11-03] MEDS: PEPCID TAB 20 MG PO SCH (08:59)
[2019-11-03] MEDS: VITAMIN D3 25 mcg (1,000 UNITS) PO SCH (08:59)
[2019-11-03] MEDS: HEMOCYTE-PLUS PO SCH (09:00)
[2019-11-03] MEDS: ASPIRIN EC 81 MG PO SCH (09:00)
[2019-11-03] MEDS: NORVASC TAB 5 MG PO SCH (09:00)
[2019-11-03] MEDS: NAMENDA TAB 10 MG PO SCH (09:02)
[2019-11-03] MEDS: CELEBREX PO SCH (09:03)
[2019-11-03] MEDS: VOLTAREN 1 % GEL MULTI DOSE TUBE TOP SCH (09:04)
[2019-11-03] MEDS: CYMBALTA PO SCH (09:25)
[2019-11-03 11:26] VITALS: BP 182/96
== END 2019-11-03 14:35 | disposition home health service (06) | DRG 638 ==
LOC: MED/SURG 21:02 → ER 21:02 → OBSVTOIN 22:52 → MERGE 22:52 → MED/SURG 23:52
PROVIDERS: ADMIT Internal Medicine; ATTEND Internal Medicine
DX: K21.9 Gastro-esophageal reflux disease without esophagitis; J44.9 Chronic obstructive pulmonary disease, unspecified; R06.02 Shortness of breath; I10 Essential (primary) hypertension; E03.8 Other specified hypothyroidism; R94.4 Abnormal results of kidney function studies; D50.0 Iron deficiency anemia secondary to blood loss (chronic); N30.00 Acute cystitis without hematuria; E11.65 Type 2 diabetes mellitus with hyperglycemia; R10.11 Right upper quadrant pain; R91.8 Other nonspecific abnormal finding of lung field; B96.29 Other Escherichia coli [E. coli] as the cause of diseases classified elsewhere; R26.89 Other abnormalities of gait and mobility; R19.7 Diarrhea, unspecified; M54.89 Other dorsalgia; E78.2 Mixed hyperlipidemia
CPT/HCPCS: 36415; 36430; 71010; 71045; 71250; 74000; 74018; 74022; 74176; 78306; 80053; 81001; 81003; 82150; 82270; 82947; 83036; 83630; 83690; 83735; 84132; 85014; 85018; 85025; 86850; 86900; 86901; 86922; 87045; 87086; 87088; 87186; 87328; 87329; 87338; 87427; 87449; 87493; 87899; 94760; 96365; 96374; 96375; 97110; 97161; 99284; A4216; A4222; A9503; J0696; J1200; J1650; J1815; J1885; J1940; J2270; J3475; J3490; J7030; J7040; J7050; P9016